=== PATIENT | male | born 1950 | race Caucasian/White ===

== ENCOUNTER → 2016-03-19 | Outpatient (CLI) | payer MEDICARE ==
--- NOTE | 2016-03-19 11:19 | US ---
EXAMINATION TYPE: US thyroid st tissue head/neck DATE OF EXAM: 03/19/2016 11:04 AM COMPARISON: NONE CLINICAL HISTORY: E04.1 THYROID NODULE. GLAND SIZE: Right Lobe: 3.2 x 1.3 x 1.3cm Overall Parenchyma: heterogeneous Left Lobe: 3.1 x 1.5 x 1.4cm Overall Parenchyma: heterogeneous Isthmus Thickness: 0.5cm NODULES RIGHT: # of nodules measured on right: 1 1. 0.7 x 0.5 x 0.5 cm hyperechoic solid nodule at the mid pole with well-defined margins. This nodu le is taller than wide and shows no intranodular vascularity. Prior size: [employer] here LEFT: # of nodules measured on left: 0 ISTHMUS: # of nodules measured in the isthmus:0 Bilateral neck scanned, no abnormal lymphadenopathy noted. IMPRESSION: Nonspecific nodularity. Thyroid lobe.
== END | disposition home or self-care (01) ==
LOC: RADUSWWP 10:51
PROVIDERS: ATTEND Surgery
DX: E04.1 Nontoxic single thyroid nodule (principal)
CPT/HCPCS: 76536

== ENCOUNTER 2016-03-26 06:44 | Day surgery (SDC) | payer MEDICARE ==
[2016-03-22 11:34] VITALS: BMI 37.2
[~2016-03-26 06:44] MED LIST: LACTATED RINGERS 1,000 ML IV ONE
[2016-03-26] MEDS ORDERED: LACTATED RINGERS 1,000 ML IV ONE (07:03)
[2016-03-26 07:11] VITALS: RESP 16; TEMP 97.3
[2016-03-26 07:17] LABS: Glucose,Whole Blood 110 mg/dL (75-99)
[2016-03-26] MEDS ORDERED: PROPOFOL 10 MG/ML 20 ML VIAL IV ONE (07:39)
[2016-03-26] MEDS ORDERED: LIDOCAINE 1% INJ 10MG/ML (20 ML MDV) ONE (07:39)
--- NOTE | 2016-03-26 07:54 | P.GSHP ---
History of Present Illness H&P Date: 03/26/16 Chief Complaint: Screening colonoscopy This is a 65-year-old male referred from Dr. Edgard Ambrosio. Patient rents today for screening colonoscopy. Patient states his last colonoscopy was approximately 13 years ago. He denies any significant GI complaints. - Constitutional Constitutional: Reports as per HPI Past Medical History Past Medical History: Coronary Artery Disease (CAD), Chest Pain / Angina, Diabetes Mellitus, GERD/Reflux, Hyperlipidemia, Hypertension, Musculoskeletal Disorder, Osteoarthritis (OA), Rheumatoid Arthritis (RA), Sleep Apnea/CPAP/BIPAP Additional Past Medical History / Comment(s): CHRONIC PAIN, RS3PE, DDD, cervical stenosis, upper extremity radiculopathy, stroke behind RT EYE, USES CPAP OCCAS. History of Any Multi-Drug Resistant Organisms: None Reported Past Surgical History: Ear Surgery, Heart Catheterization With Stent, Hernia Repair, Joint Replacement, Orthopedic Surgery Additional Past Surgical History / Comment(s): 01/10/15 anterior cervical decompression/fusion, 2004 CARDIAC STENT X1, RT KNEE REPLACEMENT, UVULectomy, RT EAR SURGERY, UMBILICAL HERNIA REPAIR, R eye injections for occular stroke tx , colonoscopy-normal Past Anesthesia/Blood Transfusion Reactions: No Reported Reaction Additional Past Anesthesia/Blood Transfusion Reaction / Comment(s): TAKES AWHILE TO WAKE UP. Date of Last Stent Placement:: 2004? Past Psychological History: Depression Additional Psychological History / Comment(s): Pt resides with his spouse. Recently he has had to use a walker to ambulate due to increased weakness. He drives. He is independent. Smoking Status: Former smoker Past Alcohol Use History: Occasional Additional Past Alcohol Use History / Comment(s): QUIT SMOKING 1977, SMOKED 10- 15 YRS. Past Drug Use History: None Reported - Past Family History Mother History Unknown: Yes Father History Unknown: Yes Additional Family Medical History / Comment(s): Pt has not spoken to his mother or father in 30 yrs. Medications and Allergies Home Medications Medication Instructions Recorded Confirmed Type Aspirin EC [Ecotrin Low Dose] 81 mg PO DAILY 12/28/14 03/26/16 History Isosorbide Mononitrate ER [Imdur] 60 mg PO QAM 12/28/14 03/26/16 History Metoprolol Tartrate 25 mg PO QAM 12/28/14 03/26/16 History Omeprazole [PriLOSEC] 20 mg PO AC-BRKFST 12/28/14 03/26/16 History Venlafaxine HCl ER [Effexor XR] 150 mg PO QAM 12/28/14 03/26/16 History Zolpidem Tartrate [Ambien] 10 mg PO HS PRN 12/28/14 03/26/16 History Diazepam [Valium] 10 mg PO DAILY PRN 01/04/16 03/26/16 History metFORMIN HCL [Glucophage] 500 mg PO BID-W/MEALS 01/04/16 03/26/16 History Atorvastatin [Lipitor] 80 mg PO DAILY 03/22/16 03/26/16 History Cholecalciferol [Vitamin D3] 1,000 unit PO DAILY 03/22/16 03/26/16 History Folic Acid 1 mg PO DAILY 03/22/16 03/26/16 History HYDROcodone/APAP 5-325MG [[place] 1 tab PO DAILY PRN 03/22/16 03/26/16 History 5-325] Methotrexate Sodium [Methotrexate] 10 mg PO MO 03/22/16 03/26/16 History Allergies Allergy/AdvReac Type Severity Reaction Status Date / Time hydrocodone bitartrate Allergy AGITATION,CAN Verified 03/26/16 07:06 [From Vicodin] TAKE NORCO AND TYLENOL Surgical - Exam Vital Signs Temp Pulse Resp BP Pulse Ox 97.3 F L 55 L 16 125/69 96 03/26/16 07:10 03/26/16 07:10 03/26/16 07:10 03/26/16 07:10 03/26/16 07:10 - General well developed, no distress - Eyes PERRL - ENT normal pinna - Neck no masses - Respiratory normal expansion - Cardiovascular Rhythm: regular - Abdomen Abdomen: soft, non tender Results - Labs Abnormal Lab Results - Last 24 Hours (Table) 03/26/16 Range/Units 07:12 POC Glucose (mg/dL) 110 H (75-99) mg/dL Assessment and Plan Plan: We'll perform screening colonoscopy.
--- NOTE | 2016-03-26 08:03 | P.OP ---
Date of Procedure: 03/26/16 Preoperative Diagnosis: Screening colonoscopy Postoperative Diagnosis: Normal colonoscopy Procedure(s) Performed: Colonoscopy Anesthesia: MAC Surgeon: Hank Martinez Pathology: none sent Condition: stable Disposition: PACU Description of Procedure: Patient's placed on the endoscopy table lateral position. He received IV sedation. Digital rectal exam was performed which revealed no abnormalities. The prostate was symmetric without nodules. The flexible colonoscope was then placed patient anus passed throughout the entire colon. The ileocecal valve was visualized. The cecum, ascending and transverse colon appeared normal. Scope was then brought back the descending and sigmoid colon this was normal. The rectum was normal. The scope was withdrawn for patient.
[2016-03-26 08:23] VITALS: BP 137/91; PULSE 52
== END 2016-03-26 08:49 | disposition home or self-care (01) ==
LOC: ORWHC2ENDO 06:44
PROVIDERS: ATTEND Surgery
DX: Z12.11 Encounter for screening for malignant neoplasm of colon (principal); I25.119 Atherosclerotic heart disease of native coronary artery with unspecified angina pectoris; I10 Essential (primary) hypertension; Z87.891 Personal history of nicotine dependence; E11.9 Type 2 diabetes mellitus without complications; Z79.84 Long term (current) use of oral hypoglycemic drugs; K21.9 Gastro-esophageal reflux disease without esophagitis; E78.5 Hyperlipidemia, unspecified; F32.9 Major depressive disorder, single episode, unspecified; M19.90 Unspecified osteoarthritis, unspecified site; M06.9 Rheumatoid arthritis, unspecified; G47.33 Obstructive sleep apnea (adult) (pediatric); Z95.5 Presence of coronary angioplasty implant and graft; Z79.82 Long term (current) use of aspirin; Z79.899 Other long term (current) drug therapy; Z88.5 Allergy status to narcotic agent
CPT/HCPCS: J2001; J2704; G0121; 45378; 99153

== ENCOUNTER → 2016-09-18 | Outpatient (CLI) | payer MEDICARE ==
--- NOTE | 2016-09-18 15:33 | US ---
EXAMINATION TYPE: US thyroid st tissue head/neck DATE OF EXAM: 09/18/2016 COMPARISON: US thyroid March 19, 2016 CLINICAL HISTORY: E04.1 THYROID NODULE. GLAND SIZE: Right Lobe: 4.6 x 1.9 x 1.7 cm Overall Parenchyma: heterogenous Left Lobe: 3.7 x 1.5 x 1.8 cm Overall Parenchyma: heterogeneous Isthmus Thickness: 0.3 cm NODULES RIGHT: # of nodules measured on right: 1 1. 0.6 X 0.6 x 0.6 cm echogenic solid nodule at the mid pole with poorly defined margins. This nod ule is wider than tall and shows no intranodular vascularity. Prior size: 0.7 x 0.5 x 0.5 cm LEFT: # of nodules measured on left: 0 ISTHMUS: # of nodules measured in the isthmus: 0 Bilateral neck scanned, no evidence of lymphadenopathy. Thyroid gland is overall small in size and heterogeneous in appearance with stable 6 mm small nodule right thyroid lobe. IMPRESSION: Overall stable findings, no new greater than 1 cm solid or cystic nodule is seen bilaterally.
== END | disposition home or self-care (01) ==
LOC: RADUSWWP 14:56
PROVIDERS: ATTEND Surgery
DX: E04.1 Nontoxic single thyroid nodule (principal)
CPT/HCPCS: 76536

== ENCOUNTER → 2017-09-19 | Outpatient (CLI) | payer MEDICARE, BC ==
--- NOTE | 2017-09-19 15:43 | US ---
EXAMINATION TYPE: US thyroid st tissue head/neck DATE OF EXAM: 09/19/2017 COMPARISON: 09/18/2016 thyroid ultrasound. CLINICAL HISTORY: Thyroid nodule E04.1. GLAND SIZE: Right Lobe: 3.8 X 2.4 X 2.5 cm Overall Parenchyma: homogenous Left Lobe: 4.6 X 2.7 x 1.4 cm Overall Parenchyma: homogeneous Isthmus Thickness: 0.4 cm NODULES RIGHT: # of nodules measured on right: Previous nodule not appreciated on today's exam LEFT: # of nodules measured on left: 1 ISTHMUS: # of nodules measured in the isthmus 0 1. 0.4 X 0.3 x 0.4 cm hypoechoic cystic nodule at the upper pole left thyroid with well-defined ma rgins; . This nodule is wider than tall and shows no intranodular vascularity. Prior size: no previous Bilateral neck scanned, no evidence of lymphadenopathy. Thyroid gland remains normal in size and fairly homogeneous in appearance with small 4 mm solid nodul e marked in left thyroid on current study IMPRESSION: Normal-sized thyroid without worrisome new greater than 1 cm solid or cystic nodule.
== END | disposition home or self-care (01) ==
LOC: RADUSWWP 14:51
PROVIDERS: ATTEND Surgery
DX: E04.1 Nontoxic single thyroid nodule (principal)
CPT/HCPCS: 76536

== ENCOUNTER 2018-07-10 06:06 | Emergency (ER) | payer MEDICARE, BC ==
[2018-07-10 06:21] VITALS: RESP 18
[2018-07-10] MEDS ORDERED: MORPHINE SULFATE 4 MG/ML SYRINGE IV STA (06:34)
[2018-07-10] MEDS ORDERED: ONDANSETRON 4 MG/2 ML VIAL IVP STA (06:34)
[2018-07-10] MEDS ORDERED: SODIUM CHLORIDE 0.9% 1,000 ML IV STA ×2 (06:34)
[2018-07-10 07:19] LABS: Appearance,Urine Cloudy (Clear); Bilirubin,Urine 1+ (Negative); Blood,Urine Moderate (Negative); Color,Urine Dark Brown; Glucose,Urine (UA) Negative (Negative); Ketones,Urine Trace (Negative); Leukocyte Esterase,Urine Negative (Negative); Mucus,Urine Moderate /hpf; Nitrite,Urine Negative (Negative); PH, Urine 5.5 (5.0-8.0); Protein,Urine 1+ (Negative); RBC,Urine >182 /hpf (0-5); Specific Gravity,Urine 1.032 (1.001-1.035); Urobilinogen,Urine <2.0 mg/dL (<2.0); WBC,Urine 42 /hpf (0-5)
--- NOTE | 2018-07-10 07:26 | ED ---
Abdominal Pain HPI <Reg Kwon - Last Filed: 07/10/18 08:55> - General Source: patient, EMS, RN notes reviewed, old records reviewed Mode of arrival: EMS Limitations: no limitations <Adenike Juan - Last Filed: 07/10/18 09:07> - General Chief Complaint: Abdominal Pain Stated Complaint: Abd pain Time Seen by Provider: 07/10/18 07:04 - History of Present Illness Initial Comments: Patient is a 67-year-old male presents emergency department today with onset of left flank pain last night. Patient arrived via EMS and given IM pain medication nausea medication. He has had a kidney stone 20 years ago. Patient has had no recent fevers or chills. Denies any significant abdominal pain. He states his pain is strictly of the left flank. Patient states his urine has been dark colored. Patient denies any recent fever, chills, shortness of breath, chest pain, back pain, abdominal pain, nausea vomiting, numbness or tingling, dysuria or hematuria, constipation or diarrhea, headaches or visual changes, or any other current symptoms (Adenike Juan) - Related Data Home Medications Medication Instructions Recorded Confirmed Aspirin EC [Ecotrin Low Dose] 81 mg PO DAILY 12/28/14 07/10/18 Isosorbide Mononitrate ER [Imdur] 60 mg PO QAM 12/28/14 07/10/18 Metoprolol Tartrate 25 mg PO QAM 12/28/14 07/10/18 Zolpidem Tartrate [Ambien] 10 mg PO HS PRN 12/28/14 07/10/18 metFORMIN HCL [Glucophage] 1,000 mg PO BID-W/MEALS 01/04/16 07/10/18 Atorvastatin [Lipitor] 80 mg PO DAILY 03/22/16 07/10/18 Hydroxychloroquine Sulfate 200 mg PO BID 07/10/18 07/10/18 [Plaquenil] Venlafaxine HCl ER [Effexor XR] 75 mg PO DAILY 07/10/18 07/10/18 sulfaSALAzine [Azulfidine] 1,500 mg PO BID 07/10/18 07/10/18 Previous Rx's Medication Instructions Recorded Ciprofloxacin HCl [Cipro] 500 mg PO BID 3 Days #6 tab 07/10/18 HYDROcodone/APAP 5-325MG [[place] 1 tab PO Q6HR PRN #10 tab 07/10/18 5-325] Ondansetron Odt [Zofran Odt] 4 mg PO Q8HR PRN #12 tab 07/10/18 Tamsulosin [Flomax] 0.4 mg PO DAILY #7 cap 07/10/18 Allergies Allergy/AdvReac Type Severity Reaction Status Date / Time hydrocodone bitartrate AdvReac AGITATION,CAN Verified 07/10/18 07:31 [From Vicodin] TAKE NORCO AND TYLENOL Review of Systems ROS Other: All systems not noted in ROS Statement are negative. <Reg Kwon - Last Filed: 07/10/18 08:55> ROS Other: All systems not noted in ROS Statement are negative. <Adenike Juan - Last Filed: 07/10/18 09:07> ROS Statement: Those systems with pertinent positive or pertinent negative responses have been documented in the HPI. Past Medical History Past Medical History: Coronary Artery Disease (CAD), Chest Pain / Angina, Diabetes Mellitus, GERD/Reflux, Hyperlipidemia, Hypertension, Musculoskeletal Disorder, Osteoarthritis (OA), Rheumatoid Arthritis (RA), Sleep Apnea/CPAP/BIPAP Additional Past Medical History / Comment(s): CHRONIC PAIN, RS3PE, DDD, cervical stenosis, upper extremity radiculopathy, stroke behind RT EYE, USES CPAP OCCAS. History of Any Multi-Drug Resistant Organisms: None Reported Past Surgical History: Ear Surgery, Heart Catheterization With Stent, Hernia Repair, Joint Replacement, Orthopedic Surgery Additional Past Surgical History / Comment(s): 01/10/15 anterior cervical decompression/fusion, 2004 CARDIAC STENT X1, RT KNEE REPLACEMENT, UVULectomy, RT EAR SURGERY, UMBILICAL HERNIA REPAIR, R eye injections for occular stroke tx, colonoscopy-normal Past Anesthesia/Blood Transfusion Reactions: No Reported Reaction Additional Past Anesthesia/Blood Transfusion Reaction / Comment(s): TAKES AWHILE TO WAKE UP. Date of Last Stent Placement:: 2004? Past Psychological History: Depression Smoking Status: Former smoker Past Alcohol Use History: Occasional Past Drug Use History: None Reported - Past Family History Mother History Unknown: Yes Father History Unknown: Yes Additional Family Medical History / Comment(s): Pt has not spoken to his mother or father in 30 yrs. <Adenike Juan - Last Filed: 07/10/18 09:07> General Exam Limitations: no limitations General appearance: alert, in no apparent distress Head exam: Present: atraumatic, normocephalic, normal inspection Eye exam: Present: normal appearance, PERRL, EOMI. Absent: scleral icterus, conjunctival injection, periorbital swelling ENT exam: Present: normal exam, mucous membranes moist Neck exam: Present: normal inspection. Absent: tenderness, meningismus, lymphadenopathy Respiratory exam: Present: normal lung sounds bilaterally. Absent: respiratory distress, wheezes, rales, rhonchi, stridor Cardiovascular Exam: Present: regular rate, normal rhythm, normal heart sounds. Absent: systolic murmur, diastolic murmur, rubs, gallop, clicks GI/Abdominal exam: Present: soft, tenderness (Left CVA tenderness), normal bowel sounds. Absent: distended, guarding, rebound, rigid Extremities exam: Present: normal inspection, full ROM, normal capillary refill. Absent: tenderness, pedal edema, joint swelling, calf tenderness Back exam: Present: normal inspection Neurological exam: Present: alert, oriented X3, CN II-XII intact Psychiatric exam: Present: normal affect, normal mood Skin exam: Present: warm, dry, intact, normal color. Absent: rash <Adenike Juan - Last Filed: 07/10/18 09:07> - General Exam Comments Initial Comments: Patient is a 67-year-old male. Alert and oriented 3. Patient appears in no acute distress. Resting comfortably in bed at this time. (Adenike Juan) Course <Reg Kwon - Last Filed: 07/10/18 08:55> Vital Signs 07/10/18 06:18 Temperature 97.6 F Pulse Rate 58 L Respiratory 18 Rate Blood Pressure 146/100 O2 Sat by Pulse 96 Oximetry - Reevaluation(s) Reevaluation #1: 07/10/18 08:55 PA supervision: I personally evaluate this case and do agree with the assessment and plan. He does demonstrate evidence of a kidney stone with white cells in the urine he will be placed on appropriate medication. (Reg Kwon) Medical Decision Making - Lab Data Result diagrams: 07/10/18 07:25 07/10/18 07:25 <Reg Kwon - Last Filed: 07/10/18 08:55> - Lab Data Result diagrams: 07/10/18 07:25 07/10/18 07:25 - Radiology Data Radiology results: report reviewed <Adenike Juan - Last Filed: 07/10/18 09:07> - Medical Decision Making is a 67-year-old male presents emergency lots of left flank pain. Patient has evidence of hematuria, with white blood cells noted in urine. Urine culture be completed. Patient was started on IV fluids, given pain medication and reevaluation instantly bed. Computed tomography scan without contrast shows evidence of a 3 mm left ureter stone. Patient will be started on Rocephin for a possible urinary tract infection with the stone. Will discharge Patient with Cipro, Flomax, and pain medicine. All questions answered return parameters were discussed. (Adenike Juan) - Lab Data Lab Results 07/10/18 07/10/18 07/10/18 Range/Units 06:55 07:25 07:25 WBC 6.1 (3.8-10.6) k/uL RBC 3.92 L (4.30-5.90) m/uL Hgb 12.0 L (13.0-17.5) gm/dL Hct 37.6 L (39.0-53.0) % MCV 96.0 (80.0-100.0) fL MCH 30.6 (25.0-35.0) pg MCHC 31.9 (31.0-37.0) g/dL RDW 15.1 (11.5-15.5) % Plt Count 201 (150-450) k/uL Neutrophils % 86 % Lymphocytes % 9 % Monocytes % 3 % Eosinophils % 1 % Basophils % 0 % Neutrophils # 5.2 (1.3-7.7) k/uL Lymphocytes # 0.6 L (1.0-4.8) k/uL Monocytes # 0.2 (0-1.0) k/uL Eosinophils # 0.1 (0-0.7) k/uL Basophils # 0.0 (0-0.2) k/uL Hypochromasia Slight Sodium 142 (137-145) mmol/L Potassium 4.3 (3.5-5.1) mmol/L Chloride 106 (98-107) mmol/L Carbon Dioxide 27 (22-30) mmol/L Anion Gap 9 mmol/L BUN 18 (9-20) mg/dL Creatinine 0.96 (0.66-1.25) mg/dL Est GFR (CKD-EPI)AfAm >90 (>60 ml/min/1.73 sqM) Est GFR (CKD-EPI)NonAf 83 (>60 ml/min/1.73 sqM) Glucose 131 H (74-99) mg/dL Calcium 9.4 (8.4-10.2) mg/dL Total Bilirubin 0.4 (0.2-1.3) mg/dL AST 31 (17-59) U/L ALT 44 (21-72) U/L Alkaline Phosphatase 74 (38-126) U/L Total Protein 6.6 (6.3-8.2) g/dL Albumin 4.4 (3.5-5.0) g/dL Amylase 59 (30-110) U/L Lipase 107 (23-300) U/L Urine Color Dark Brown Urine Appearance Cloudy (Clear) Urine pH 5.5 (5.0-8.0) Ur Specific [place] 1.032 (1.001-1.035) Urine Protein 1+ H (Negative) Urine Glucose (UA) Negative (Negative) Urine Ketones Trace H (Negative) Urine Blood Moderate H (Negative) Urine Nitrite Negative (Negative) Urine Bilirubin 1+ H (Negative) Urine Urobilinogen <2.0 (<2.0) mg/dL Ur Leukocyte Esterase Negative (Negative) Urine RBC >182 H (0-5) /hpf Urine WBC 42 H (0-5) /hpf Urine Mucus Moderate H (None) /hpf - Radiology Data : Temperature change in the mid left ureter with a mild prominence present without hydroureter no 0.3 cm mid left hemipelvis ureteral stone. No hyd ronephrosis is present. Bilateral cysts. (Adenike Juan) Disposition <Reg Kwon - Last Filed: 07/10/18 08:55> Is patient prescribed a controlled substance at d/c from ED?: Yes If prescribed controlled substance>3 days was MAPS reviewed?: Prescribed <3 Days Time of Disposition: 09:04 <Adenike Juan - Last Filed: 07/10/18 09:07> Clinical Impression: UTI (urinary tract infection), Ureteral stone Disposition: HOME SELF-CARE Condition: Good Instructions (If sedation given, give patient instructions): Ureteral Stones (ED) Additional Instructions: Patient is to rest, remain hydrated. Take antibiotics and medications as prescribed. Follow-up with urology. Return to the emergency department if any alarming signs or symptoms occur. Prescriptions: Ciprofloxacin HCl [Cipro] 500 mg PO BID 3 Days #6 tab Tamsulosin [Flomax] 0.4 mg PO DAILY #7 cap HYDROcodone/APAP 5-325MG [[place] 5-325] 1 tab PO Q6HR PRN #10 tab PRN Reason: Pain Ondansetron Odt [Zofran Odt] 4 mg PO Q8HR PRN #12 tab PRN Reason: Nausea Referrals: Edgard Dixon DO [Primary Care Provider] - 1-2 days Orestes Stern MD [STAFF PHYSICIAN] - 1-2 days
[2018-07-10 07:49] LABS: Basophils % (A) 0 %; Eosinophils # (A) 0.1 k/uL (0-0.7); Eosinophils % (A) 1 %; HCT 37.6 % (39.0-53.0); Hypochromasia Slight; Lymphocytes # (A) 0.6 k/uL (1.0-4.8); Lymphocytes % (A) 9 %; MCH 30.6 pg (25.0-35.0); MCHC 31.9 g/dL (31.0-37.0); Mean Platelet Volume 7.1; Monocytes # (A) 0.2 k/uL (0-1.0); Monocytes % (A) 3 %; Neutrophils # (A) 5.2 k/uL (1.3-7.7); Neutrophils % (A) 86 %; Platelet Count 201 k/uL (150-450); RBC 3.92 m/uL (4.30-5.90); RDW 15.1 % (11.5-15.5); WBC 6.1 k/uL (3.8-10.6)
--- NOTE | 2018-07-10 07:49 | CT ---
EXAMINATION TYPE: CT abdomen pelvis wo con DATE OF EXAM: 07/10/2018 COMPARISON: None INDICATION: Abdominal pain; history of renal stones DLP: 1340.4 mGycm, Automated exposure control for dose reduction was used. CONTRAST: None Study performed without Oral Contrast TECHNIQUE: Axial images were obtained from above the diaphragm to the pubic rami in the axial plane a t 5 mm thick sections. Reconstructed images are reviewed on the computer in the coronal plane. FINDINGS: Limited CT sections are obtained the lung bases. The lung bases are clear. Coronary artery calcific ations present. CT ABDOMEN: Liver: Normal Spleen: Normal Pancreas: There is some fatty infiltration liver. Adrenal glands: The adrenal glands are normal. Gallbladder: Normal Kidneys: No masses are evident. No hydronephrosis is present. There is a cyst on the posterior mid left kidney measuring 5.6 cm and 12 Hounsfield units. Cyst on the inferior anterior right kidney damon uring 7.1 cm and 3 Hounsfield units. There is a nonobstructing renal stone at the inferior pole right kidney measuring 0.6 cm. No hydroureter is evident. There is a 0.3 cm calcification which may reside within the mid left hemipelvis. There is some mild i nflammatory change adjacent to the left ureter suggesting this may be a distal ureteral stone. Some m ild mid ureteral prominence may be present. Aorta: Vascular calcification is within the aorta. There is fusiform prominence of the abdominal aor ta with an AP diameter of 3.4 cm. This extends to the aortic bifurcation. Inferior vena cava: Normal. CT PELVIS: Loops of bowel within the abdomen and pelvis are normal. Study is performed without oral contrast limiting bowel evaluation. Appendix: Normal as visualized. Urinary bladder: Decompressed with limited evaluation Genitourinary structures: Prostate is normal Osseous structures: No suspicious lytic or sclerotic lesions. IMPRESSIONS: 1. Periureteral inflammatory changes of the mid left ureter. Some mild prominence is present without hydroureter to a 0.3 cm mid left hemipelvis ureteral stone. No hydronephrosis is present. 2. Bilateral cysts.
[2018-07-10 07:52] LABS: ALT 44 U/L (21-72); AST 31 U/L (17-59); Albumin 4.4 g/dL (3.5-5.0); Alkaline Phosphatase 74 U/L (38-126); Amylase 59 U/L (30-110); Anion Gap 9 mmol/L; Blood Urea Nitrogen 18 mg/dL (9-20); Calcium 9.4 mg/dL (8.4-10.2); Carbon Dioxide 27 mmol/L (22-30); Chloride 106 mmol/L (98-107); Glucose 131 mg/dL (74-99); Lipase 107 U/L (23-300); Potassium 4.3 mmol/L (3.5-5.1); Sodium 142 mmol/L (137-145); Total Bilirubin 0.4 mg/dL (0.2-1.3); Total Protein 6.6 g/dL (6.3-8.2)
[2018-07-10 10:12] VITALS: BP 137/83; PULSE 60; TEMP 97.8
== END 2018-07-10 10:27 | disposition home or self-care (01) ==
LOC: EC 06:06
DX: N20.1 Calculus of ureter (principal); N39.0 Urinary tract infection, site not specified; N28.1 Cyst of kidney, acquired; I25.119 Atherosclerotic heart disease of native coronary artery with unspecified angina pectoris; E11.9 Type 2 diabetes mellitus without complications; E78.5 Hyperlipidemia, unspecified; I10 Essential (primary) hypertension; M19.90 Unspecified osteoarthritis, unspecified site; M06.9 Rheumatoid arthritis, unspecified; G47.30 Sleep apnea, unspecified; F32.9 Major depressive disorder, single episode, unspecified; Z87.891 Personal history of nicotine dependence; Z88.5 Allergy status to narcotic agent; Z88.6 Allergy status to analgesic agent; Z79.82 Long term (current) use of aspirin; Z79.84 Long term (current) use of oral hypoglycemic drugs; Z79.899 Other long term (current) drug therapy; Z86.73 Personal history of transient ischemic attack (TIA), and cerebral infarction without residual deficits; Z87.442 Personal history of urinary calculi; Z95.5 Presence of coronary angioplasty implant and graft; Z96.651 Presence of right artificial knee joint; Z98.1 Arthrodesis status; Z99.89 Dependence on other enabling machines and devices
CPT/HCPCS: 99285; 96374; 96375; 96361 ×3; 36415; 80053; 82150; 83690; 85025; 81001; 87086; 74176; J2270; J2405; J0696

== ENCOUNTER → 2018-09-22 | Outpatient (CLI) | payer MEDICARE, BC ==
--- NOTE | 2018-09-22 12:42 | US ---
EXAMINATION TYPE: US thyroid st tissue head/neck DATE OF EXAM: 09/22/2018 COMPARISON: US 2019 CLINICAL HISTORY: E04.1 Thyroid nodule. thyroid nodules GLAND SIZE: Right Lobe: 5.0 x 2.6 x 2.0 cm Overall Parenchyma: heterogenous Left Lobe: 4.4 x 1.7 x 1.4 cm Overall Parenchyma: heterogeneous Isthmus Thickness: 0.3 cm NODULES RIGHT: # of nodules measured on right: 1 1. 0.7 X 0.8 x 0.7 cm hyperechoic solid nodule at the mid pole with well-defined margins. This nodu le is wider than tall and shows no intranodular vascularity. Prior size: 0.6 x 0.6 x 0.6 cm LEFT: # of nodules measured on left: 1 1. 0.4 X 0.4 x 0.4 cm hypoechoic mixed nodule at the upper pole with well-defined margins. This nod ule is wider than tall and shows no intranodular vascularity. Prior size: 0.4 x 0.3 x 0.4 cm ISTHMUS: # of nodules measured in the isthmus: 0 Bilateral neck scanned, no evidence of lymphadenopathy. IMPRESSION: Thyroid nodularity as noted above.
== END | disposition home or self-care (01) ==
LOC: RADUSWWP 12:11
PROVIDERS: ATTEND Surgery
DX: E04.2 Nontoxic multinodular goiter (principal)
CPT/HCPCS: 76536

== ENCOUNTER → 2018-10-16 | Outpatient (CLI) | payer MEDICARE, BC | END | disposition home or self-care (01) | LOC: LABWHC1 15:15 | PROVIDERS: ATTEND Urology | DX: C61 Malignant neoplasm of prostate (principal) | CPT/HCPCS: 36415; 84153; 84403 ==

== ENCOUNTER 2018-11-18 17:43 | Emergency (ER) | payer MEDICARE, BC ==
[2018-11-18 17:51] VITALS: PULSE 50; TEMP 97.3
[2018-11-18] MEDS ORDERED: SODIUM CHLORIDE 0.9% 1,000 ML IV STA ×2 (17:58)
[2018-11-18] MEDS ORDERED: KETOROLAC 30 MG/ML 1 ML VIAL IVP STA (17:58)
--- NOTE | 2018-11-18 18:09 | ED ---
Abdominal Pain HPI - General Chief Complaint: Abdominal Pain Stated Complaint: abdominal pain Time Seen by Provider: 11/18/18 17:43 Source: patient, EMS, RN notes reviewed Mode of arrival: EMS Limitations: no limitations - History of Present Illness Initial Comments: This is a 62-year-old male with a history kidney stones in the past who states he had the onset around 4 to 4:30 PM today of severe right-sided flank and abdominal pain he states is sharp 9-10/10 severity the pain radiation or else. He has a some nausea some sweats with it. He was brought in by EMS was given IV pain medication without much relief. He states is much worse than his previous kidney stones. His only other abdominal area that of a hernia repair he still has his appendix and gallbladder. No diarrhea reported no constipation. Production no chest pain or shortness of breath. He does state his pain radiates toward his back. MD Complaint: abdominal pain, flank pain Location: RUQ, RLQ - Related Data Home Medications Medication Instructions Recorded Confirmed Aspirin EC [Ecotrin Low Dose] 81 mg PO DAILY 12/28/14 11/18/18 Metoprolol Tartrate 25 mg PO QAM 12/28/14 11/18/18 Zolpidem Tartrate [Ambien] 10 mg PO HS PRN 12/28/14 11/18/18 metFORMIN HCL [Glucophage] 1,000 mg PO BID-W/MEALS 01/04/16 11/18/18 Atorvastatin [Lipitor] 80 mg PO DAILY 03/22/16 11/18/18 Hydroxychloroquine Sulfate 200 mg PO BID 07/10/18 11/18/18 [Plaquenil] Venlafaxine HCl ER [Effexor XR] 75 mg PO DAILY 07/10/18 11/18/18 sulfaSALAzine [Azulfidine] 1,500 mg PO BID 07/10/18 11/18/18 Diazepam 10 mg PO HS PRN 11/18/18 11/18/18 Omeprazole 20 mg PO DAILY 11/18/18 11/18/18 Previous Rx's Medication Instructions Recorded Tamsulosin [Flomax] 0.4 mg PO DAILY #7 cap 11/18/18 Allergies Allergy/AdvReac Type Severity Reaction Status Date / Time hydrocodone bitartrate AdvReac AGITATION,CAN Verified 11/18/18 18:58 [From Vicodin] TAKE NORCO AND TYLENOL Review of Systems ROS Statement: Those systems with pertinent positive or pertinent negative responses have been documented in the HPI. ROS Other: All systems not noted in ROS Statement are negative. Past Medical History Past Medical History: Coronary Artery Disease (CAD), Chest Pain / Angina, Diabetes Mellitus, GERD/Reflux, Hyperlipidemia, Hypertension, Musculoskeletal Disorder, Osteoarthritis (OA), Rheumatoid Arthritis (RA), Sleep Apnea/CPAP/BIPAP Additional Past Medical History / Comment(s): CHRONIC PAIN, RS3PE, DDD, cervical stenosis, upper extremity radiculopathy, stroke behind RT EYE, USES CPAP OCCAS. History of Any Multi-Drug Resistant Organisms: None Reported Past Surgical History: Ear Surgery, Heart Catheterization With Stent, Hernia Repair, Joint Replacement, Orthopedic Surgery Additional Past Surgical History / Comment(s): 01/10/15 anterior cervical decompression/fusion, 2004 CARDIAC STENT X1, RT KNEE REPLACEMENT, UVULectomy, RT EAR SURGERY, UMBILICAL HERNIA REPAIR, R eye injections for occular stroke tx, colonoscopy-normal Past Anesthesia/Blood Transfusion Reactions: No Reported Reaction Additional Past Anesthesia/Blood Transfusion Reaction / Comment(s): TAKES AWHILE TO WAKE UP. Date of Last Stent Placement:: 2004? Past Psychological History: Depression Smoking Status: Former smoker Past Alcohol Use History: Occasional Past Drug Use History: None Reported - Past Family History Mother History Unknown: Yes Father History Unknown: Yes Additional Family Medical History / Comment(s): Pt has not spoken to his mother or father in 30 yrs. General Exam - General Exam Comments Initial Comments: This is a well-developed well-nourished awake alert oriented 3 male Limitations: no limitations General appearance: alert, anxious, in distress Head exam: Present: atraumatic, normocephalic, normal inspection Eye exam: Present: normal appearance, PERRL, EOMI. Absent: scleral icterus, conjunctival injection, periorbital swelling ENT exam: Present: normal exam, mucous membranes moist Neck exam: Present: normal inspection, full ROM, other (No stridor JVD or bruits). Absent: tenderness, meningismus, lymphadenopathy Respiratory exam: Present: normal lung sounds bilaterally. Absent: respiratory distress, wheezes, rales, rhonchi, stridor Cardiovascular Exam: Present: normal rhythm, bradycardia, normal heart sounds. Absent: systolic murmur, diastolic murmur, rubs, gallop, clicks GI/Abdominal exam: Present: soft, tenderness (Right side pain to palpation right lower quadrant right flank.), normal bowel sounds. Absent: distended, guarding, rebound, rigid Rectal exam: Present: deferred Extremities exam: Present: normal inspection, full ROM, normal capillary refill. Absent: tenderness, pedal edema, joint swelling, calf tenderness Back exam: Present: normal inspection, full ROM. Absent: tenderness Neurological exam: Present: alert, oriented X3, CN II-XII intact Psychiatric exam: Present: normal affect, anxious Skin exam: Present: warm, intact, normal color, diaphoretic. Absent: rash Course Vital Signs 11/18/18 11/18/18 11/18/18 17:45 18:51 19:37 Temperature 97.3 F L Pulse Rate 50 L 50 L Respiratory 20 18 Rate Blood Pressure 149/81 139/70 O2 Sat by Pulse 99 98 100 Oximetry Medical Decision Making - Medical Decision Making Patient is pain-free after several patient medication the presentation is consistent with a ureterolithiasis and renal colic. He does want to go home I did discuss findings the patient family. Patient will be discharged he will keep his follow-up with his other doctor. He does have pain medication at home he will be given a starter pack today. - Lab Data Result diagrams: 11/18/18 18:40 11/18/18 18:40 Lab Results 11/18/18 11/18/18 11/18/18 Range/Units 18:40 18:40 18:40 WBC 6.6 (3.8-10.6) k/uL RBC 3.98 L (4.30-5.90) m/uL Hgb 12.6 L (13.0-17.5) gm/dL Hct 39.7 (39.0-53.0) % MCV 99.9 (80.0-100.0) fL MCH 31.7 (25.0-35.0) pg MCHC 31.7 (31.0-37.0) g/dL RDW 14.7 (11.5-15.5) % Plt Count 207 (150-450) k/uL Neutrophils % 85 % Lymphocytes % 9 % Monocytes % 3 % Eosinophils % 1 % Basophils % 0 % Neutrophils # 5.6 (1.3-7.7) k/uL Lymphocytes # 0.6 L (1.0-4.8) k/uL Monocytes # 0.2 (0-1.0) k/uL Eosinophils # 0.1 (0-0.7) k/uL Basophils # 0.0 (0-0.2) k/uL Macrocytosis Slight Sodium 140 (137-145) mmol/L Potassium 5.0 (3.5-5.1) mmol/L Chloride 105 (98-107) mmol/L Carbon Dioxide 26 (22-30) mmol/L Anion Gap 9 mmol/L BUN 16 (9-20) mg/dL Creatinine 0.97 (0.66-1.25) mg/dL Est GFR (CKD-EPI)AfAm >90 (>60 ml/min/1.73 sqM) Est GFR (CKD-EPI)NonAf 82 (>60 ml/min/1.73 sqM) Glucose 137 H (74-99) mg/dL Plasma Lactic Acid Howie 2.4 H* (0.7-2.0) mmol/L Calcium 9.5 (8.4-10.2) mg/dL Magnesium 1.5 L (1.6-2.3) mg/dL Total Bilirubin 0.6 (0.2-1.3) mg/dL AST 37 (17-59) U/L ALT 43 (21-72) U/L Alkaline Phosphatase 97 (38-126) U/L Creatine Kinase 202 H (55-170) U/L Total Protein 6.6 (6.3-8.2) g/dL Albumin 4.3 (3.5-5.0) g/dL Amylase 42 (30-110) U/L Lipase 97 (23-300) U/L Urine Color Urine Appearance (Clear) Urine pH (5.0-8.0) Ur Specific Orange (1.001-1.035) Urine Protein (Negative) Urine Glucose (UA) (Negative) Urine Ketones (Negative) Urine Blood (Negative) Urine Nitrite (Negative) Urine Bilirubin (Negative) Urine Urobilinogen (<2.0) mg/dL Ur Leukocyte Esterase (Negative) Urine RBC (0-5) /hpf Urine Mucus (None) /hpf 11/18/18 Range/Units 19:07 WBC (3.8-10.6) k/uL RBC (4.30-5.90) m/uL Hgb (13.0-17.5) gm/dL Hct (39.0-53.0) % MCV (80.0-100.0) fL MCH (25.0-35.0) pg MCHC (31.0-37.0) g/dL RDW (11.5-15.5) % Plt Count (150-450) k/uL Neutrophils % % Lymphocytes % % Monocytes % % Eosinophils % % Basophils % % Neutrophils # (1.3-7.7) k/uL Lymphocytes # (1.0-4.8) k/uL Monocytes # (0-1.0) k/uL Eosinophils # (0-0.7) k/uL Basophils # (0-0.2) k/uL Macrocytosis Sodium (137-145) mmol/L Potassium (3.5-5.1) mmol/L Chloride (98-107) mmol/L Carbon Dioxide (22-30) mmol/L Anion Gap mmol/L BUN (9-20) mg/dL Creatinine (0.66-1.25) mg/dL Est GFR (CKD-EPI)AfAm (>60 ml/min/1.73 sqM) Est GFR (CKD-EPI)NonAf (>60 ml/min/1.73 sqM) Glucose (74-99) mg/dL Plasma Lactic Acid Howie (0.7-2.0) mmol/L Calcium (8.4-10.2) mg/dL Magnesium (1.6-2.3) mg/dL Total Bilirubin (0.2-1.3) mg/dL AST (17-59) U/L ALT (21-72) U/L Alkaline Phosphatase (38-126) U/L Creatine Kinase (55-170) U/L Total Protein (6.3-8.2) g/dL Albumin (3.5-5.0) g/dL Amylase (30-110) U/L Lipase (23-300) U/L Urine Color Dark Brown Urine Appearance Clear (Clear) Urine pH 6.5 (5.0-8.0) Ur Specific Orange 1.028 (1.001-1.035) Urine Protein 1+ H (Negative) Urine Glucose (UA) Negative (Negative) Urine Ketones Trace H (Negative) Urine Blood Moderate H (Negative) Urine Nitrite Negative (Negative) Urine Bilirubin 1+ H (Negative) Urine Urobilinogen 3.0 (<2.0) mg/dL Ur Leukocyte Esterase Negative (Negative) Urine RBC >182 H (0-5) /hpf Urine Mucus Occasional H (None) /hpf Disposition Clinical Impression: Kidney stone on right side, Renal colic on right side, Hematuria Disposition: HOME SELF-CARE Condition: Good Instructions (If sedation given, give patient instructions): Kidney Stones (ED), Renal Colic (ED), How to Strain Your Urine (ED) Additional Instructions: Use the pain medication I you have at home, your Flomax prescription has been [facility] here [facility] Prescriptions: Tamsulosin [Flomax] 0.4 mg PO DAILY #7 cap Is patient prescribed a controlled substance at d/c from ED?: No Referrals: Edgard Dixon DO [Primary Care Provider] - 1-2 days
[2018-11-18 18:52] LABS: Basophils % (A) 0 %; Eosinophils # (A) 0.1 k/uL (0-0.7); Eosinophils % (A) 1 %; HCT 39.7 % (39.0-53.0); HGB 12.6 gm/dL (13.0-17.5); Lymphocytes # (A) 0.6 k/uL (1.0-4.8); Lymphocytes % (A) 9 %; MCH 31.7 pg (25.0-35.0); MCHC 31.7 g/dL (31.0-37.0); MCV 99.9 fL (80.0-100.0); Macrocytosis Slight; Mean Platelet Volume 6.8; Monocytes # (A) 0.2 k/uL (0-1.0); Monocytes % (A) 3 %; Neutrophils # (A) 5.6 k/uL (1.3-7.7); Neutrophils % (A) 85 %; Platelet Count 207 k/uL (150-450); RBC 3.98 m/uL (4.30-5.90); RDW 14.7 % (11.5-15.5); WBC 6.6 k/uL (3.8-10.6)
[2018-11-18 19:01] LABS: ALT 43 U/L (21-72); AST 37 U/L (17-59); African American GFR (CKD) >90 (>60 ml/min/1.73 sqM); Albumin 4.3 g/dL (3.5-5.0); Alkaline Phosphatase 97 U/L (38-126); Amylase 42 U/L (30-110); Anion Gap 9 mmol/L; Blood Urea Nitrogen 16 mg/dL (9-20); Calcium 9.5 mg/dL (8.4-10.2); Carbon Dioxide 26 mmol/L (22-30); Chloride 105 mmol/L (98-107); Creatine Kinase 202 U/L (55-170); Glucose 137 mg/dL (74-99); Magnesium 1.5 mg/dL (1.6-2.3); Sodium 140 mmol/L (137-145); Total Bilirubin 0.6 mg/dL (0.2-1.3); Total Protein 6.6 g/dL (6.3-8.2)
[2018-11-18] MEDS ORDERED: SODIUM CHLORIDE 0.9% 1,000 ML IV ONE (19:20)
[2018-11-18 19:21] LABS: Appearance,Urine Clear (Clear); Bilirubin,Urine 1+ (Negative); Blood,Urine Moderate (Negative); Color,Urine Dark Brown; Glucose,Urine (UA) Negative (Negative); Ketones,Urine Trace (Negative); Leukocyte Esterase,Urine Negative (Negative); Mucus,Urine Occasional /hpf; Nitrite,Urine Negative (Negative); PH, Urine 6.5 (5.0-8.0); Protein,Urine 1+ (Negative); RBC,Urine >182 /hpf (0-5); Specific Gravity,Urine 1.028 (1.001-1.035)
[2018-11-18 19:38] VITALS: RESP 18
--- NOTE | 2018-11-18 19:38 | CT ---
EXAMINATION TYPE: CT abdomen pelvis wo con DATE OF EXAM: 11/18/2018 COMPARISON: 07/10/2018 HISTORY: Right sided pain CT DLP: 1440 mGycm Automated exposure control for dose reduction was used. TECHNIQUE: Helical acquisition of images was performed from the lung bases through the pelvis. FINDINGS: There is mild atelectasis at the posterior lung bases. There is no pericardial effusion. There is no pleural effusion. Stomach is intact. Liver shows no focal defect. Gallbladder appears normal. There i s no evidence of pancreatic mass. Spleen is intact. There is no adrenal mass. There is 5 cm cortical cyst posterior left kidney. There is lobulated large cyst anterior right kidne y that measures 8 cm. There is mild right-sided hydronephrosis and hydroureter. There is 6 mm calculu s in the distal right ureter near the ureterovesical junction. Bladder distends smoothly. Left ureter is not dilated. There is no retroperitoneal adenopathy. Abdominal aorta is atheromatous. Abdominal a [place] measures up to 3.2 cm. There is no inguinal hernia. There is no mesenteric edema. There is no ascites or free air. There is no sign of a bowel obstruction. There are some hypertrophic degenerative changes in the lumbar spine. There is no compression fracture. Bony pelvis is intact. Appendix is normal. IMPRESSION: OBSTRUCTING CALCULUS DISTAL RIGHT URETER WITH RIGHT-SIDED HYDRONEPHROSIS AND HYDROURETER. OBSTRUCTION IS NEW COMPARED TO OLD EXAM. THERE IS MILD ANEURYSM OF THE ABDOMINAL AORTA UNCHANGED.
[2018-11-18] MEDS ORDERED: fentaNYL (PF) 50 MCG/ML 2 ML AMP IV STA (20:12)
[2018-11-18] MEDS ORDERED: TAMSULOSIN 0.4 MG CAP.ER.24H PO STA (20:13)
[2018-11-18] MEDS ORDERED: IBUPROFEN 400 MG TAB PO STA (22:01)
[2018-11-18 22:17] VITALS: BP 141/70
== END 2018-11-18 22:34 | disposition home or self-care (01) ==
LOC: EC 17:43
DX: N20.2 Calculus of kidney with calculus of ureter (principal); I25.119 Atherosclerotic heart disease of native coronary artery with unspecified angina pectoris; E11.9 Type 2 diabetes mellitus without complications; K21.9 Gastro-esophageal reflux disease without esophagitis; E78.5 Hyperlipidemia, unspecified; I10 Essential (primary) hypertension; M19.90 Unspecified osteoarthritis, unspecified site; G47.30 Sleep apnea, unspecified; G89.29 Other chronic pain; M06.9 Rheumatoid arthritis, unspecified; F32.9 Major depressive disorder, single episode, unspecified; Z79.82 Long term (current) use of aspirin; Z79.84 Long term (current) use of oral hypoglycemic drugs; Z79.899 Other long term (current) drug therapy; Z87.891 Personal history of nicotine dependence; Z88.5 Allergy status to narcotic agent; Z95.5 Presence of coronary angioplasty implant and graft; Z88.6 Allergy status to analgesic agent; Z99.89 Dependence on other enabling machines and devices; Z96.651 Presence of right artificial knee joint; Z98.890 Other specified postprocedural states
CPT/HCPCS: 36415; 80053; 82150; 82550; 83605; 83690; 83735; 85025; 81001; 74176; 99285; 96374; 96375; 96361 ×4; J3010; J1885

== ENCOUNTER 2018-11-22 06:36 | Emergency (ER) | payer MEDICARE, BC ==
[2018-11-22] MEDS ORDERED: ONDANSETRON 4 MG/2 ML VIAL IVP STA (06:47)
[2018-11-22] MEDS ORDERED: PANTOPRAZOLE 40 MG/10 ML VIAL IVP STA (06:47)
[2018-11-22] MEDS ORDERED: SODIUM CHLORIDE 0.9% 1,000 ML IV STA (06:47)
[2018-11-22] MEDS ORDERED: SODIUM CHLORIDE 0.9% 2,000 ML IV STA (06:47)
[2018-11-22] MEDS ORDERED: KETOROLAC 30 MG/ML 1 ML VIAL IVP STA (06:47)
[2018-11-22] MEDS ORDERED: MORPHINE SULFATE 4 MG/ML SYRINGE IV STA (06:47)
--- NOTE | 2018-11-22 06:51 | ED ---
Abdominal Pain HPI - General Source: EMS, RN notes reviewed, old records reviewed Mode of arrival: EMS Limitations: no limitations <Adenike Sims - Last Filed: 11/22/18 08:29> <Reg Kwon - Last Filed: 11/22/18 08:56> - General Chief Complaint: Abdominal Pain Stated Complaint: Kidney stones Time Seen by Provider: 11/22/18 06:37 - History of Present Illness Initial Comments: This patient's a 68-year-old male presents bridge from today for continued right flank pain. Patient has history of CAD, diabetes, hyperlipidemia and hypertension, rheumatoid arthritis.He was seen in the emergency department on November 18 was diagnosed with a 6 mm kidney stone. Patient reports she's had persistent pain since that time. He reports his been taking his at home narcotic pain medicine for chronic back pain. He states it is not helping. Here in the emergency department early this morning via EMS. Patient states he does her urologist Dr. Engel, for history of prostate cancer. Patient reports he took his Flomax last night and didn't have frequent urination. Reports he started to have some sharp worsening pains around 3 AM. (Adenike Sims) - Related Data Home Medications Medication Instructions Recorded Confirmed Aspirin EC [Ecotrin Low Dose] 81 mg PO DAILY 12/28/14 11/22/18 Metoprolol Tartrate 25 mg PO QAM 12/28/14 11/22/18 Zolpidem Tartrate [Ambien] 10 mg PO HS PRN 12/28/14 11/22/18 metFORMIN HCL [Glucophage] 1,000 mg PO BID-W/MEALS 01/04/16 11/22/18 Atorvastatin [Lipitor] 80 mg PO DAILY 03/22/16 11/22/18 Hydroxychloroquine Sulfate 200 mg PO BID 07/10/18 11/22/18 [Plaquenil] Venlafaxine HCl ER [Effexor XR] 75 mg PO DAILY 07/10/18 11/22/18 sulfaSALAzine [Azulfidine] 1,500 mg PO BID 07/10/18 11/22/18 Diazepam 10 mg PO HS PRN 11/18/18 11/22/18 Omeprazole 20 mg PO DAILY 11/18/18 11/22/18 Tamsulosin [Flomax] 0.4 mg PO HS 11/22/18 11/22/18 Previous Rx's Medication Instructions Recorded Ketorolac [Toradol] 10 mg PO Q6HR #15 tab 11/22/18 Ondansetron Odt [Zofran Odt] 4 mg PO Q8HR PRN #12 tab 11/22/18 Allergies Allergy/AdvReac Type Severity Reaction Status Date / Time hydrocodone bitartrate AdvReac AGITATION,CAN Verified 11/22/18 08:48 [From Vicodin] TAKE NORCO AND TYLENOL Review of Systems ROS Other: All systems not noted in ROS Statement are negative. <Adenike Sims - Last Filed: 11/22/18 08:29> ROS Other: All systems not noted in ROS Statement are negative. <Reg Kwon - Last Filed: 11/22/18 08:56> ROS Statement: Those systems with pertinent positive or pertinent negative responses have been documented in the HPI. Past Medical History Past Medical History: Coronary Artery Disease (CAD), Chest Pain / Angina, Diabetes Mellitus, GERD/Reflux, Hyperlipidemia, Hypertension, Musculoskeletal Disorder, Osteoarthritis (OA), Rheumatoid Arthritis (RA), Sleep Apnea/CPAP/BIPAP Additional Past Medical History / Comment(s): CHRONIC PAIN, RS3PE, DDD, cervical stenosis, upper extremity radiculopathy, stroke behind RT EYE, USES CPAP OCCAS. History of Any Multi-Drug Resistant Organisms: None Reported Past Surgical History: Ear Surgery, Heart Catheterization With Stent, Hernia Repair, Joint Replacement, Orthopedic Surgery Additional Past Surgical History / Comment(s): 01/10/15 anterior cervical decompression/fusion, 2004 CARDIAC STENT X1, RT KNEE REPLACEMENT, UVULectomy, RT EAR SURGERY, UMBILICAL HERNIA REPAIR, R eye injections for occular stroke tx, colonoscopy-normal Past Anesthesia/Blood Transfusion Reactions: No Reported Reaction Additional Past Anesthesia/Blood Transfusion Reaction / Comment(s): TAKES AWHILE TO WAKE UP. Date of Last Stent Placement:: 2004? Past Psychological History: Depression Smoking Status: Former smoker Past Alcohol Use History: Occasional Past Drug Use History: None Reported - Past Family History Mother History Unknown: Yes Father History Unknown: Yes Additional Family Medical History / Comment(s): Pt has not spoken to his mother or father in 30 yrs. <Adenike Sims - Last Filed: 11/22/18 08:29> General Exam Limitations: no limitations General appearance: alert, in no apparent distress Head exam: Present: atraumatic, normocephalic, normal inspection Eye exam: Present: normal appearance, PERRL, EOMI. Absent: scleral icterus, conjunctival injection, periorbital swelling ENT exam: Present: normal exam, mucous membranes moist <Adenike Sims - Last Filed: 11/22/18 08:29> - General Exam Comments Initial Comments: 68 year old male, writhing around in pain. (Adenike Sims) Course <Adenike Sims - Last Filed: 11/22/18 08:29> <Reg Kwon - Last Filed: 11/22/18 08:56> Vital Signs 11/22/18 06:40 Temperature 97.7 F Pulse Rate 69 Respiratory 20 Rate Blood Pressure 141/98 O2 Sat by Pulse 98 Oximetry - Reevaluation(s) Reevaluation #1: 11/22/18 08:30 Patient is reevaluated and resting comfortably in bed. Patient appears in no distress. (Adenike Sims) Reevaluation #2: 11/22/18 08:56 PA supervision: I proceeded [id number] evaluation patient did discuss findings the patient's I did review the imaging and reports as well as old charting. I do agree with assessment and plan. Patient's patient's consistent with kidney stone and renal colic. (Reg Kwon) Medical Decision Making - Lab Data Result diagrams: 11/22/18 06:43 11/22/18 06:43 <Adenike Sims - Last Filed: 11/22/18 08:29> - Lab Data Result diagrams: 11/22/18 06:43 11/22/18 06:43 <Reg Kwon - Last Filed: 11/22/18 08:56> - Medical Decision Making is a 68-year-old male presents emergency department today with persistent right flank pain for the past 4 days. Sinus with a 6 mm distal ureteral stone. At this time Patient has been taking Flomax and pain medicines that he sat at home but arrived with worsening pain starting at 3 AM. Patient was given IV fluids labwork obtained. He appeared in moderate discomfort upon arrival. Patient was reevaluated later and is resting comfortably. Labwork was reviewed relatively unremarkable. Normal white blood cell count. Urinalysis shows no infection or red blood cells at this time. Kidney function is stable. KUB shows no evidence of obstructive stone. Patient does live for these findings. He continues to have some pain. I discussed that this possibly could still be retained stone. I discussed the Patient will need to follow-up with urology. The meantime he can use Toradol and Zofran to help with his pain and some of his RAD prescribed pain medicines. (Adenike Sims) - Lab Data Lab Results 11/22/18 11/22/18 11/22/18 Range/Units 06:43 06:43 06:43 WBC 5.0 (3.8-10.6) k/uL RBC 3.82 L (4.30-5.90) m/uL Hgb 11.4 L (13.0-17.5) gm/dL Hct 37.2 L (39.0-53.0) % MCV 97.4 (80.0-100.0) fL MCH 29.9 (25.0-35.0) pg MCHC 30.7 L (31.0-37.0) g/dL RDW 14.8 (11.5-15.5) % Plt Count 216 (150-450) k/uL Neutrophils % 78 % Lymphocytes % 13 % Monocytes % 5 % Eosinophils % 2 % Basophils % 0 % Neutrophils # 3.9 (1.3-7.7) k/uL Lymphocytes # 0.7 L (1.0-4.8) k/uL Monocytes # 0.3 (0-1.0) k/uL Eosinophils # 0.1 (0-0.7) k/uL Basophils # 0.0 (0-0.2) k/uL PT 10.4 (9.0-12.0) sec INR 1.0 (<1.2) APTT 25.3 (22.0-30.0) sec Sodium 140 (137-145) mmol/L Potassium 4.2 (3.5-5.1) mmol/L Chloride 104 (98-107) mmol/L Carbon Dioxide 29 (22-30) mmol/L Anion Gap 7 mmol/L BUN 14 (9-20) mg/dL Creatinine 1.23 (0.66-1.25) mg/dL Est GFR (CKD-EPI)AfAm 71 (>60 ml/min/1.73 sqM) Est GFR (CKD-EPI)NonAf 61 (>60 ml/min/1.73 sqM) Glucose 149 H (74-99) mg/dL Calcium 9.5 (8.4-10.2) mg/dL Total Bilirubin 0.5 (0.2-1.3) mg/dL AST 25 (17-59) U/L ALT 38 (21-72) U/L Alkaline Phosphatase 86 (38-126) U/L Total Protein 6.4 (6.3-8.2) g/dL Albumin 4.1 (3.5-5.0) g/dL Amylase 35 (30-110) U/L Lipase 66 (23-300) U/L Urine Color Urine Appearance (Clear) Urine pH (5.0-8.0) Ur Specific [place] (1.001-1.035) Urine Protein (Negative) Urine Glucose (UA) (Negative) Urine Ketones (Negative) Urine Blood (Negative) Urine Nitrite (Negative) Urine Bilirubin (Negative) Urine Urobilinogen (<2.0) mg/dL Ur Leukocyte Esterase (Negative) Urine WBC (0-5) /hpf Ur Squamous Epith Cells (0-4) /hpf Urine Bacteria (None) /hpf Hyaline Casts (0-2) /lpf Urine Mucus (None) /hpf 11/22/18 Range/Units 07:30 WBC (3.8-10.6) k/uL RBC (4.30-5.90) m/uL Hgb (13.0-17.5) gm/dL Hct (39.0-53.0) % MCV (80.0-100.0) fL MCH (25.0-35.0) pg MCHC (31.0-37.0) g/dL RDW (11.5-15.5) % Plt Count (150-450) k/uL Neutrophils % % Lymphocytes % % Monocytes % % Eosinophils % % Basophils % % Neutrophils # (1.3-7.7) k/uL Lymphocytes # (1.0-4.8) k/uL Monocytes # (0-1.0) k/uL Eosinophils # (0-0.7) k/uL Basophils # (0-0.2) k/uL PT (9.0-12.0) sec INR (<1.2) APTT (22.0-30.0) sec Sodium (137-145) mmol/L Potassium (3.5-5.1) mmol/L Chloride (98-107) mmol/L Carbon Dioxide (22-30) mmol/L Anion Gap mmol/L BUN (9-20) mg/dL Creatinine (0.66-1.25) mg/dL Est GFR (CKD-EPI)AfAm (>60 ml/min/1.73 sqM) Est GFR (CKD-EPI)NonAf (>60 ml/min/1.73 sqM) Glucose (74-99) mg/dL Calcium (8.4-10.2) mg/dL Total Bilirubin (0.2-1.3) mg/dL AST (17-59) U/L ALT (21-72) U/L Alkaline Phosphatase (38-126) U/L Total Protein (6.3-8.2) g/dL Albumin (3.5-5.0) g/dL Amylase (30-110) U/L Lipase (23-300) U/L Urine Color Dark Brown Urine Appearance Clear (Clear) Urine pH 5.5 (5.0-8.0) Ur Specific [place] 1.030 (1.001-1.035) Urine Protein 1+ H (Negative) Urine Glucose (UA) Negative (Negative) Urine Ketones Negative (Negative) Urine Blood Negative (Negative) Urine Nitrite Negative (Negative) Urine Bilirubin 1+ H (Negative) Urine Urobilinogen 2.0 (<2.0) mg/dL Ur Leukocyte Esterase Negative (Negative) Urine WBC 3 (0-5) /hpf Ur Squamous Epith Cells 2 (0-4) /hpf Urine Bacteria Rare H (None) /hpf Hyaline Casts 1 (0-2) /lpf Urine Mucus Many H (None) /hpf Disposition Is patient prescribed a controlled substance at d/c from ED?: No Time of Disposition: 08:31 <Adenike Sims - Last Filed: 11/22/18 08:29> <Reg Kwon - Last Filed: 11/22/18 08:56> Clinical Impression: Right flank pain Disposition: HOME SELF-CARE Condition: Good Instructions (If sedation given, give patient instructions): Abdominal Pain (ED) Additional Instructions: Please use medication as discussed. Please follow up with urology. Please return to the emergency room if your symptoms increase or worsen or for any other concerns. Prescriptions: Ketorolac [Toradol] 10 mg PO Q6HR #15 tab Ondansetron Odt [Zofran Odt] 4 mg PO Q8HR PRN #12 tab PRN Reason: Nausea Referrals: Edgard Dixon DO [Primary Care Provider] - 1-2 days Orestes Stern MD [STAFF PHYSICIAN] - 1-2 days
[2018-11-22 06:54] VITALS: TEMP 97.7
[2018-11-22] MEDS ORDERED: TAMSULOSIN 0.4 MG CAP.ER.24H PO STA (06:55)
[2018-11-22 06:56] LABS: Basophils % (A) 0 %; Eosinophils # (A) 0.1 k/uL (0-0.7); Eosinophils % (A) 2 %; HCT 37.2 % (39.0-53.0); HGB 11.4 gm/dL (13.0-17.5); Lymphocytes # (A) 0.7 k/uL (1.0-4.8); Lymphocytes % (A) 13 %; MCH 29.9 pg (25.0-35.0); MCHC 30.7 g/dL (31.0-37.0); MCV 97.4 fL (80.0-100.0); Mean Platelet Volume 6.9; Monocytes # (A) 0.3 k/uL (0-1.0); Monocytes % (A) 5 %; Neutrophils # (A) 3.9 k/uL (1.3-7.7); Neutrophils % (A) 78 %; Platelet Count 216 k/uL (150-450); RBC 3.82 m/uL (4.30-5.90); RDW 14.8 % (11.5-15.5)
[2018-11-22 07:04] LABS: Albumin 4.1 g/dL (3.5-5.0); Calcium 9.5 mg/dL (8.4-10.2); Potassium 4.2 mmol/L (3.5-5.1); Total Bilirubin 0.5 mg/dL (0.2-1.3); Total Protein 6.4 g/dL (6.3-8.2)
[2018-11-22 07:05] LABS: Partial Thromboplastin Time 25.3 sec (22.0-30.0); Prothrombin Time 10.4 sec (9.0-12.0)
--- NOTE | 2018-11-22 07:27 | XR ---
EXAMINATION TYPE: XR KUB , 2 VIEWS DATE OF EXAM ORDERED: 11/22/2018 HISTORY: abdominal pain. COMPARISON: None. FINDINGS: The lung bases are clear. Within the abdomen, the abdominal gas pattern is normal. No evidence of obstruction or free air. Ther e are phleboliths within the pelvis. IMPRESSION: NONACUTE ABDOMINAL PICTURE.
[2018-11-22 08:12] LABS: Appearance,Urine Clear (Clear); Bacteria,Urine Rare /hpf; Bilirubin,Urine 1+ (Negative); Blood,Urine Negative (Negative); Color,Urine Dark Brown; Glucose,Urine (UA) Negative (Negative); Hyaline Casts,Urine 1 /lpf (0-2); Ketones,Urine Negative (Negative); Leukocyte Esterase,Urine Negative (Negative); Mucus,Urine Many /hpf; Nitrite,Urine Negative (Negative); PH, Urine 5.5 (5.0-8.0); Protein,Urine 1+ (Negative); Squamous Epithelial Cell,Urine 2 /hpf (0-4); WBC,Urine 3 /hpf (0-5)
[2018-11-22] MEDS ORDERED: HYDROmorphone 1 MG/ML 1 ML SYRINGE IVP STA (08:28)
[2018-11-22] MEDS ORDERED: ACET/COD 300 MG/30 MG STARTER PACK 6 TAB BTL PO STA (08:59)
[2018-11-22 09:37] VITALS: BP 123/79; PULSE 80; RESP 16
== END 2018-11-22 09:37 | disposition home or self-care (01) ==
LOC: EC 06:36
DX: R10.9 Unspecified abdominal pain (principal); M54.9 Dorsalgia, unspecified; G89.29 Other chronic pain; I25.119 Atherosclerotic heart disease of native coronary artery with unspecified angina pectoris; E11.9 Type 2 diabetes mellitus without complications; K21.9 Gastro-esophageal reflux disease without esophagitis; E78.5 Hyperlipidemia, unspecified; I10 Essential (primary) hypertension; M19.90 Unspecified osteoarthritis, unspecified site; M06.9 Rheumatoid arthritis, unspecified; G47.30 Sleep apnea, unspecified; F32.9 Major depressive disorder, single episode, unspecified; Z87.891 Personal history of nicotine dependence; Z88.5 Allergy status to narcotic agent; Z79.82 Long term (current) use of aspirin; Z79.84 Long term (current) use of oral hypoglycemic drugs; Z79.891 Long term (current) use of opiate analgesic; Z79.899 Other long term (current) drug therapy; Z85.46 Personal history of malignant neoplasm of prostate; Z87.442 Personal history of urinary calculi; Z96.651 Presence of right artificial knee joint; Z95.5 Presence of coronary angioplasty implant and graft; Z99.89 Dependence on other enabling machines and devices; Z98.1 Arthrodesis status
CPT/HCPCS: 99285; 96374; 96375 ×4; 96361 ×3; 51798; 36415; 80053; 82150; 83690; 85025; 85610; 85730; 81001; 87086; 74018; J2270; J2405; J1885; J1170; C9113

== ENCOUNTER 2018-12-01 10:15 | Day surgery (SDC) | payer MEDICARE, BC ==
--- NOTE | 2018-11-26 16:14 | P.GSHP ---
History of Present Illness H&P Date: 11/26/18 Chief Complaint: Right flank pain The patient is a 68-year-old white male with no prior history of urolithiasis. He recently presented with right flank and right lower quadrant abdominal pain. A computed tomography scan showed mild right hydronephrosis secondary to a 6 mm right distal ureteral calculus, which was seen on a plain radiograph graft. The computed tomography scan also showed bilateral large renal cysts. He was offered the options of medical expulsion therapy, ureteroscopy with laser lithotripsy, and extracorporal shockwave lithotripsy (ESWL). After weighing the pros and cons of each, he has elected to undergo ESWL. Incidentally, he was diagnosed with prostate cancer in November 2016, which was treated with radiation therapy and androgen deprivation therapy. His PSA level is currently undetectable. - Constitutional Constitutional: Reports chills - Gastrointestinal Gastrointestinal: Reports nausea, Reports vomiting - Genitourinary (Female) Genitourinary: Reports flank pain, Reports hematuria Past Medical History Past Medical History: Coronary Artery Disease (CAD), Chest Pain / Angina, D iabetes Mellitus, GERD/Reflux, Hyperlipidemia, Hypertension, Musculoskeletal Disorder, Osteoarthritis (OA), Rheumatoid Arthritis (RA), Sleep Apnea/CPAP/BIPAP Additional Past Medical History / Comment(s): CHRONIC PAIN, RS3PE, DDD, cervical stenosis, upper extremity radiculopathy, stroke behind RT EYE, USES CPAP OCCAS. History of Any Multi-Drug Resistant Organisms: None Reported Past Surgical History: Ear Surgery, Heart Catheterization With Stent, Hernia Repair, Joint Replacement, Orthopedic Surgery Additional Past Surgical History / Comment(s): 01/10/15 anterior cervical decompression/fusion, 2004 CARDIAC STENT X1, RT KNEE REPLACEMENT, UVULectomy, RT EAR SURGERY, UMBILICAL HERNIA REPAIR, R eye injections for occular stroke tx, colonoscopy-normal Past Anesthesia/Blood Transfusion Reactions: No Reported Reaction Additional Past Anesthesia/Blood Transfusion Reaction / Comment(s): TAKES AWHILE TO WAKE UP. Date of Last Stent Placement:: 2004? Past Psychological History: Depression Smoking Status: Former smoker Past Alcohol Use History: Occasional Past Drug Use History: None Reported - Past Family History Mother History Unknown: Yes Father History Unknown: Yes Additional Family Medical History / Comment(s): Pt has not spoken to his mother or father in 30 yrs. Medications and Allergies Home Medications Medication Instructions Recorded Confirmed Type Aspirin EC [Ecotrin Low Dose] 81 mg PO DAILY 12/28/14 11/22/18 History Metoprolol Tartrate 25 mg PO QAM 12/28/14 11/22/18 History Zolpidem Tartrate [Ambien] 10 mg PO HS PRN 12/28/14 11/22/18 History metFORMIN HCL [Glucophage] 1,000 mg PO BID-W/MEALS 01/04/16 11/22/18 History Atorvastatin [Lipitor] 80 mg PO DAILY 03/22/16 11/22/18 History Hydroxychloroquine Sulfate 200 mg PO BID 07/10/18 11/22/18 History [Plaquenil] Venlafaxine HCl ER [Effexor XR] 75 mg PO DAILY 07/10/18 11/22/18 History sulfaSALAzine [Azulfidine] 1,500 mg PO BID 07/10/18 11/22/18 History Diazepam 10 mg PO HS PRN 11/18/18 11/22/18 History Omeprazole 20 mg PO DAILY 11/18/18 11/22/18 History Ketorolac [Toradol] 10 mg PO Q6HR #15 tab 11/22/18 Rx Ondansetron Odt [Zofran Odt] 4 mg PO Q8HR PRN #12 tab 11/22/18 Rx Tamsulosin [Flomax] 0.4 mg PO HS 11/22/18 11/22/18 History Allergies Allergy/AdvReac Type Severity Reaction Status Date / Time hydrocodone bitartrate AdvReac AGITATION,CAN Verified 11/22/18 08:48 [From Vicodin] TAKE NORCO AND TYLENOL Surgical - Exam - General well developed, well nourished, no distress - Respiratory normal respiratory effort, clear to auscultation - Cardiovascular Rhythm: regular Abnormal Heart Sounds: no systolic murmur, no diastolic murmur, no rub, no S3 Gallop, no S4 Gallop, no click, no other - Abdomen Abdomen: soft, non tender, no guarding, no rigid, no rebound - Psychiatric oriented to time, oriented to person, oriented to place, speech is normal, memory intact Results - Imaging Abdominal x-ray: report reviewed, image reviewed CT scan - abdomen: report reviewed, image reviewed Assessment and Plan (1) Calculus of ureter Status: Acute Code(s): N20.1 - CALCULUS OF URETER SNOMED Code(s): 51156814 Plan: Right ESWL. The procedure has been reviewed in detail with the patient. He understands risks to include anesthesia, injury to adjacent organs, treatment failure, incomplete fragmentation, and Steinstrasse. He is aware of the possible need for secondary treatments. The procedure will be performed by Dr. Dumas.
[2018-11-27 13:34] VITALS: BMI 35.9
[~2018-12-01 10:15] MED LIST changes: -LACTATED RINGERS 1,000 ML IV ONE; +LACTATED RINGERS 1,000 ML IV SCH; +LIDOCAINE 1% 20 ML VIAL (10MG/ML) FOR IV START INTRADERMA PRN; +Pre Op ABX Message 1 EACH MISC MISCELLANE ONE
--- NOTE | 2018-12-01 10:31 | XR ---
EXAMINATION TYPE: XR KUB DATE OF EXAM: 12/01/2018 COMPARISON: 11/22/2018 INDICATION: Kidney stone presurgical TECHNIQUE: Single view abdomen supine view FINDINGS: There is a normal bowel gas pattern. Psoas margins are normal. No organomegaly is present. 2 calcifications which are stable are within the pelvis. There may be some calcification just inferio r to the right L5 transverse process with a transverse dimension of 0.8 cm. Suspicious renal stones a re not otherwise identified. IMPRESSION: 1. Possible right mid ureteral stones.
[2018-12-01 10:44] VITALS: TEMP 98.2
[2018-12-01 11:10] LABS: Glucose,Whole Blood 97 mg/dL (75-99)
[2018-12-01] MEDS ORDERED: KETAMINE 10 MG/ML 20 ML VIAL ONE (11:10)
[2018-12-01] MEDS ORDERED: MIDAZOLAM 2 MG/2 ML VIAL ONE (11:10)
[2018-12-01] MEDS ORDERED: GLYCOPYRROLATE 0.2 MG/ML 2 ML VIAL ONE (11:10)
[2018-12-01] MEDS ORDERED: LIDOCAINE 1% INJ 10MG/ML (20 ML MDV) ONE (11:10)
[2018-12-01] MEDS ORDERED: PROPOFOL 10 MG/ML 20 ML VIAL IV ONE (11:10)
[2018-12-01] MEDS ORDERED: fentaNYL (PF) 50 MCG/ML 2 ML AMP ONE (11:10)
--- NOTE | 2018-12-01 11:50 | P.OP ---
Date of Procedure: 12/01/18 Preoperative Diagnosis: Right ureteral calculus Postoperative Diagnosis: Same Procedure(s) Performed: Extracorporeal shockwave lithotripsy 1750 shocks at energy level 6 Anesthesia: MAC Surgeon: Humberto Dumas Pathology: none sent Condition: stable Disposition: PACU Indications for Procedure: The patient is 68. He has a 7 mm distal ureteral stone. He comes for shockwave lithotripsy Description of Procedure: Patient brought to the operating suite. Placed on the lithotripsy table. The stone was seen in 2 views of fluoroscopy. 1750 shocks at energy level . administered and the stone fractures nicely patient's awake and returned recovery in good condition. He tolerated the procedure well. He will be seen in one week for follow-up KUB.
[2018-12-01 12:20] VITALS: RESP 18
[2018-12-01 12:59] VITALS: BP 119/77
[2018-12-01 13:08] VITALS: PULSE 60
== END 2018-12-01 13:18 | disposition home or self-care (01) ==
LOC: ORWHC2ENDO 10:15
PROVIDERS: ATTEND Urology
DX: N13.2 Hydronephrosis with renal and ureteral calculous obstruction (principal); I25.119 Atherosclerotic heart disease of native coronary artery with unspecified angina pectoris; I10 Essential (primary) hypertension; Z87.891 Personal history of nicotine dependence; K21.9 Gastro-esophageal reflux disease without esophagitis; E11.9 Type 2 diabetes mellitus without complications; E78.5 Hyperlipidemia, unspecified; F32.9 Major depressive disorder, single episode, unspecified; M19.90 Unspecified osteoarthritis, unspecified site; M06.9 Rheumatoid arthritis, unspecified; G47.30 Sleep apnea, unspecified; Z99.89 Dependence on other enabling machines and devices; G89.29 Other chronic pain; M48.02 Spinal stenosis, cervical region; M54.12 Radiculopathy, cervical region; Z86.73 Personal history of transient ischemic attack (TIA), and cerebral infarction without residual deficits; Z85.46 Personal history of malignant neoplasm of prostate; Z92.3 Personal history of irradiation; Z95.5 Presence of coronary angioplasty implant and graft; Z96.651 Presence of right artificial knee joint; Z79.84 Long term (current) use of oral hypoglycemic drugs; Z79.1 Long term (current) use of non-steroidal anti-inflammatories (NSAID); Z79.82 Long term (current) use of aspirin; Z79.899 Other long term (current) drug therapy
CPT/HCPCS: 74018; 50590; J2250; J2001; J3010; J2704

== ENCOUNTER → 2018-12-08 | Outpatient (CLI) | payer MEDICARE, BC ==
--- NOTE | 2018-12-08 13:27 | XR ---
EXAMINATION TYPE: XR KUB DATE OF EXAM: 12/08/2018 COMPARISON: 12/01/2018 HISTORY: Kidney stone TECHNIQUE: One view abdominal series FINDINGS: The osseous structures are intact. The bowel gas pattern is nonspecific. Calcification centrally and paramedian to the right is no longer seen within the pelvis. Left hemipelvic calcifications stable. No suspicious calcifications overlying the kidneys. Hypertrophic and degenerative change of the spine. Arthropathy of the hips. Chronic acetabular labral tear on the left suspected. IMPRESSION: 1. Nonspecific abdomen. Right hemipelvic calcification is no longer seen correlate for recently pass ed stone.
== END | disposition home or self-care (01) ==
LOC: RADXRMAIN 12:21
PROVIDERS: ATTEND Urology
DX: N20.0 Calculus of kidney (principal); Z98.890 Other specified postprocedural states
CPT/HCPCS: 74018

== ENCOUNTER → 2019-01-30 | Outpatient (CLI) | payer MEDICARE, OTHER ==
--- NOTE | 2019-01-30 13:19 | US ---
EXAMINATION TYPE: US venous doppler duplex LE RT DATE OF EXAM: 01/30/2019 10:30 AM COMPARISON: NONE CLINICAL HISTORY: M25.561 Pain Rt Knee,Z96.651 Presence of artificial knee. edema SIDE PERFORMED: Right TECHNIQUE: The lower extremity deep venous system is examined utilizing real time linear array sonog gila with graded compression, doppler sonography and color-flow sonography. VESSELS IMAGED: External Iliac Vein (EIV) Common Femoral Vein Deep Femoral Vein Greater Saphenous Vein * Femoral Vein Popliteal Vein Small Saphenous Vein * Proximal Calf Veins (* superficial vessels) Right Leg: Negative for DVT IMPRESSION: 1. Right lower extremity ultrasound negative for deep venous thrombosis.
== END | disposition home or self-care (01) ==
LOC: RADUSWWP 10:26
PROVIDERS: ATTEND Orthopaedic Surgery
DX: M25.561 Pain in right knee (principal); M79.661 Pain in right lower leg; E11.9 Type 2 diabetes mellitus without complications; I80.9 Phlebitis and thrombophlebitis of unspecified site; Z96.651 Presence of right artificial knee joint

== ENCOUNTER 2019-05-19 08:00 | Day surgery (SDC) | payer MEDICARE, BC ==
[2019-05-15 13:52] VITALS: BMI 34.7
[~2019-05-19 08:00] MED LIST changes: +ALPRAZolam 0.25 MG TAB PO PRN; +ALPRAZolam 0.5 MG TAB PO PRN; +ASPIRIN 325 MG TAB PO STA; -LACTATED RINGERS 1,000 ML IV SCH; -LIDOCAINE 1% 20 ML VIAL (10MG/ML) FOR IV START INTRADERMA PRN; +NITROGLYCERIN SL TABS 0.4 MG TAB SUBLINGUAL PRN; -Pre Op ABX Message 1 EACH MISC MISCELLANE ONE; +SODIUM CHLORIDE 0.9% 1,000 ML in EMPTY BAG 1 BAG IV ONE
[2019-05-19] MEDS ORDERED: SODIUM CHLORIDE 0.9% 1,000 ML IV ONE (08:30)
[2019-05-19 08:39] LABS: Basophils % (A) 1 %; Eosinophils # (A) 0.3 k/uL (0-0.7); Eosinophils % (A) 6 %; HCT 44.5 % (39.0-53.0); HGB 14.4 gm/dL (13.0-17.5); Lymphocytes % (A) 21 %; MCH 29.9 pg (25.0-35.0); MCHC 32.4 g/dL (31.0-37.0); MCV 92.3 fL (80.0-100.0); Mean Platelet Volume 7.6; Monocytes # (A) 0.2 k/uL (0-1.0); Monocytes % (A) 5 %; Neutrophils # (A) 3.1 k/uL (1.3-7.7); Neutrophils % (A) 66 %; Platelet Count 206 k/uL (150-450); RBC 4.82 m/uL (4.30-5.90); RDW 13.6 % (11.5-15.5); WBC 4.7 k/uL (3.8-10.6)
[2019-05-19 08:40] LABS: Glucose,Whole Blood 120 mg/dL (75-99)
[2019-05-19 08:51] LABS: Calcium 9.4 mg/dL (8.4-10.2); Potassium 4.5 mmol/L (3.5-5.1)
[2019-05-19] MEDS ORDERED: LIDOCAINE 1% INJ 10MG/ML (20 ML MDV) ONE (09:32)
[2019-05-19] MEDS ORDERED: VERAPAMIL 2.5 MG/ML 2 ML AMP ONE (09:32)
[2019-05-19] MEDS ORDERED: MIDAZOLAM 2 MG/2 ML VIAL IV ONE (09:40)
[2019-05-19] MEDS ORDERED: LIDOCAINE 1% INJ 10MG/ML (20 ML MDV) SQ ONE (09:42)
[2019-05-19] MEDS: VERAPAMIL SYRINGE (5 MG/10 ML) INTRAARTER ONE ×2 (09:43→10:30)
[2019-05-19] MEDS ORDERED: HYDROmorphone 1 MG/ML 1 ML SYRINGE ONE (09:43)
[2019-05-19] MEDS ORDERED: HYDROmorphone 1 MG/ML 1 ML SYRINGE IVP ONE (09:45)
[2019-05-19] MEDS ORDERED: BIVALIRUDIN 250 MG in SODIUM CHLORIDE 0.9% 50 ML IV ONE (09:54)
[2019-05-19] MEDS ORDERED: BIVALIRUDIN BOLUS 250 MG/50 ML IV ONE (09:54)
[2019-05-19] MEDS ORDERED: CLOPIDOGREL 75 MG TAB ONE (09:55)
[2019-05-19] MEDS: NITROGLYCERIN 1000MCG/10ML SYRINGE INTRACORON ONE ×2 (10:10→10:20)
[2019-05-19] MEDS ORDERED: CLOPIDOGREL 75 MG TAB PO ONE (10:20)
[2019-05-19] MEDS ORDERED: IOPAMIDOL-370 125ML BTL INJ ONE (10:28)
[2019-05-19] MEDS ORDERED: ACETAMINOPHEN TAB 500 MG TAB PO PRN (10:48)
[2019-05-19] MEDS ORDERED: IBUPROFEN 800 MG TAB PO PRN (10:48)
[2019-05-19] MEDS ORDERED: NITROGLYCERIN SL TABS 0.4 MG TAB SUBLINGUAL PRN (10:49)
[2019-05-19] MEDS ORDERED: ZOLPIDEM 5 MG TAB PO PRN (10:49)
[2019-05-19] MEDS ORDERED: ATROPINE SULFATE 0.1 MG/ML 10ML SYRINGE IV PRN (10:49)
[2019-05-19] MEDS ORDERED: RX INFO: IV CONTRAST WAS GIVEN 1 EACH MISC MISCELLANE PRN (10:49)
[2019-05-19] MEDS ORDERED: MAG HYDROX/AL HYDROX/SIMETH 30 ML CUP PO PRN (10:49)
[2019-05-19] MEDS ORDERED: SODIUM CHLORIDE 0.9% 1,000 ML IV SCH (11:00)
--- NOTE | 2019-05-19 11:00 | P.PCN ---
Date of Procedure: 05/19/19 Operative Findings: CARDIAC CATHETERIZATION AND PERCUTANEOUS CORONARY INTERVENTION PERFORMING PHYSICIAN: Kareem Jones MD, [facility] PROCEDURE PERFORMED: 1. Selective right and left coronary angiogram 2. Left heart catheterization 3. Successful stenting of the distal RCA using 3.0 x 18 mm Xience DORIE with excellent angiographic results 4. Successful stenting of the mid RCA using 3.0 x 28 mm Xience DORIE with an excellent angiographic results INDICATION: This is a very pleasant 68-year-old gentleman with history of coronary artery disease as well as hypertension and dyslipidemia was experiencing chest discomfort and shortness of breath. He underwent myocardial perfusion imaging stress test and that revealed reversible defect involving the lateral wall of the ventricle. Because of that a heart catheterization was advised COMPLICATION: None APPROACH: Right radial artery LEVEL OF SEDATION: Moderate with sedation in length of 53 minutes PROCEDURE DESCRIPTION: After obtaining an informed consent, the patient was brought to cardiac cath lab radiology technician. Local anesthesia was performed using lidocaine subcutaneously. The right radial artery was cannulated using Seldinger technique, the guidewire passed easily, following that we advanced a 5-Vincentian sheath dilator assembly, the wire and dilator were removed and sheath was flushed. Following that, 2 mg of verapamil along with 5000 unit heparin were given. Selective right and left coronary angiogram using a 6-Vincentian JR4 and JL 3.5 catheters. Following that we did left heart catheterization using 6-Vincentian pigtail catheter. Subsequently I did intervene on the RCA. The procedure was completed there was no complication. SELECTIVE CORONARY ANGIOGRAM: The right coronary artery: Is a large caliber vessel and a dominant vessel. The proximal RCA appeared to be angiographically normal. The mid RCA has a critical eccentric lesion appeared to be in the range of 95-99%. The RCA distally has another critical lesion appears to be in the range of 80-90%. The RCA after that bifurcates into PDA and PLV branches and both appear to have mild disease only. Left main: Calcified was mild disease only. Bifurcates into LCx, ramus intermedius, and left anterior descending artery The left circumflex: Is a large caliber vessel and nondominant vessel. The proximal LCx has a lesion appeared to be in the range of 70-80%. The mid and distal LCx appeared to have mild disease only. The ramus intermedius: Is a large caliber vessel. It does have mild disease only. The left anterior descending artery: The LAD is a large caliber vessel. It does have mild disease in the proximal to midportion. It gives rises into a small diagonal branch which appeared to have mild disease only. HEMODYNAMICS: The LVEDP was 4-8 mmHg without significant gradient across aortic valve PCI OF THE RCA: Anticoagulation was initiated using Angiomax. Subsequently I did engage the RCA using JR4 guide. I did wire the RCA using a whisper wire. I attempted advancing 2.5 x 12 mm balloon but the balloon want to cross the lesion in the mid RCA. I attempted advancing 1.5 mm x 12 mm balloon but this balloon also once cross the lesion in the mid RCA. At that point I did wire the RCA using a maciej wire with a run-through wire. Over the run through wire and I was able to advance 1.5 x 12 mm balloon were I did PTCA ballooning of the distal as well as mid RCA and the balloon was inflated under 12 abhi for about 20 seconds. Then I did PTCA below-knee using 2.5 x 12 mm balloon of the distal as well as mid RCA were the balloon was inflated under 12 abhi for 20 seconds. Subsequently for the lesion in the distal RCA I did deploy 3 0.0 x 18 mm Xience DORIE where the stent was positioned under fluoroscopy guidance and deployed under 18 abhi for 20 seconds. The stent was deployed after I pulled the maciej wire out proximal to the stent. Then I advanced the wire again across the stent. For the lesion in the mid RCA I deployed 3.0 x 28 mm another Xience DORIE where the stent again was positioned under fluoroscopy guidance and deployed under 18 abhi for 20 seconds. I postdilated the stent in the mid RCA using 3.75 mm NC balloon were the balloon was inflated under 18 and 20 abhi 2. The following angiogram showed an excellent angiographic results and the procedure was completed without any complication CONCLUSION: 1. Critical disease involving a dominant RCA in the distal and mid segments. I did successful stenting of the distal and mid RCA 2. Severe disease involving the proximal LCx 3. Mild disease involving the mid LAD POSTPROCEDURE MANAGEMENT: 1. PCI of the LCx 2. Dual antiplatelet therapy 3. Follow-up with the patient
[2019-05-19 12:04] LABS: Glucose,Whole Blood 139 mg/dL (75-99)
[2019-05-19 17:13] LABS: Glucose,Whole Blood 137 mg/dL (75-99)
[2019-05-19 20:01] LABS: Glucose,Whole Blood 108 mg/dL (75-99)
[2019-05-19] MEDS: HYDROXYCHLOROQUINE SULFATE 200 MG TAB PO SCH (20:13)
[2019-05-20 05:31] LABS: Basophils % (A) 1 %; Eosinophils # (A) 0.3 k/uL (0-0.7); Eosinophils % (A) 5 %; HCT 41.9 % (39.0-53.0); HGB 13.5 gm/dL (13.0-17.5); Lymphocytes % (A) 18 %; MCH 29.6 pg (25.0-35.0); MCHC 32.1 g/dL (31.0-37.0); MCV 92.2 fL (80.0-100.0); Mean Platelet Volume 7.5; Monocytes # (A) 0.3 k/uL (0-1.0); Monocytes % (A) 6 %; Neutrophils # (A) 3.8 k/uL (1.3-7.7); Neutrophils % (A) 69 %; Platelet Count 171 k/uL (150-450); RBC 4.54 m/uL (4.30-5.90); RDW 13.6 % (11.5-15.5); WBC 5.5 k/uL (3.8-10.6)
[2019-05-20 05:40] LABS: African American GFR (CKD) >90 (>60 ml/min/1.73 sqM); Anion Gap 9 mmol/L; Blood Urea Nitrogen 20 mg/dL (9-20); Carbon Dioxide 25 mmol/L (22-30); Chloride 103 mmol/L (98-107); Glucose 117 mg/dL (74-99); Non-African American GFR(CKD) 86 (>60 ml/min/1.73 sqM); Potassium 4.4 mmol/L (3.5-5.1); Sodium 137 mmol/L (137-145)
[2019-05-20 06:05] LABS: Glucose,Whole Blood 111 mg/dL (75-99)
[2019-05-20] MEDS ORDERED: PANTOPRAZOLE 40 MG TABLET PO SCH (07:30)
--- NOTE | 2019-05-20 08:46 | P.DS ---
Providers Date of admission: May 182019 Attending physician: Kareem Jones Consults: 05/19/19 10:49 Consult Physician Routine Consulting Provider: [facility] Consult Reason/Comments: Post Interventional patient Do you want consulting provider notified?: Already Contacted Primary care physician: Edgard Dixon [facility] Course: This is a 68-year-old gentleman who was experiencing symptoms of chest discomfort and underwent myocardial perfusion imaging stress test that revealed reversible defect involving the lateral wall of left ventricle. Subsequently he underwent a heart catheterization which revealed critical disease involving the mid RCA with a lesion appeared to be in the range of 99.9% along with severe disease involving the distal RCA with a lesion appeared to be in the range of 80-90%. Beside that he was found to have severe disease involving the proximal LCx. The patient underwent yesterday successful stenting of the mid and distal RCA with an excellent angiographic results and without any complication from right radial approach. He does have good the right radial pulse. He is asymptomatic this morning. He is going to be discharged home on dual antiplatelet therapy along with high intensity statin and I will follow-up with the patient next week in the office Plan - Discharge Summary Discharge Rx Participant: No New Discharge Prescriptions: New Clopidogrel [Plavix] 75 mg PO DAILY #90 tab Continue Metoprolol Tartrate 25 mg PO QAM Aspirin EC [Ecotrin Low Dose] 81 mg PO DAILY Atorvastatin [Lipitor] 80 mg PO DAILY Hydroxychloroquine Sulfate [Plaquenil] 200 mg PO BID Venlafaxine HCl ER [Effexor XR] 75 mg PO DAILY Omeprazole 20 mg PO DAILY Acetaminophen [Tylenol Extra Strength] 500 mg PO Q6H PRN PRN Reason: Pain Ibuprofen 800 mg PO Q8H PRN PRN Reason: Pain Discontinued metFORMIN HCL [Glucophage] 1,000 mg PO BID-W/MEALS Discharge Medication List Aspirin EC [Ecotrin Low Dose] 81 mg PO DAILY 12/28/14 [History] Metoprolol Tartrate 25 mg PO QAM 12/28/14 [History] Atorvastatin [Lipitor] 80 mg PO DAILY 03/22/16 [History] Hydroxychloroquine Sulfate [Plaquenil] 200 mg PO BID 07/10/18 [History] Venlafaxine HCl ER [Effexor XR] 75 mg PO DAILY 07/10/18 [History] Omeprazole 20 mg PO DAILY 11/18/18 [History] Acetaminophen [Tylenol Extra Strength] 500 mg PO Q6H PRN 05/15/19 [History] Ibuprofen 800 mg PO Q8H PRN 05/15/19 [History] Clopidogrel [Plavix] 75 mg PO DAILY #90 tab 05/20/19 [Rx] Follow up Appointment(s)/Referral(s): Kareem Joens MD [STAFF PHYSICIAN] - 05/26/19 1:45 pm (follow up appointment is on May 25 at 1:45 PM) Patient Instructions/Handouts: Coronary Angioplasty (DC), After Radial Heart Catheterization (GEN), Procedural Sedation (ED) Activity/Diet/Wound Care/Special Instructions: no driving for two days. no immersing right hand in dish water, bath tubs, pools for five days. no metformin for 48 hours. Avoid bending, flexing, pushing, pulling with right wrist for three days. Remove dressing tomorrow afternoon, then ok to shower. No need to reapply dressing to puncture site. signs of infection ie: fever, rash, purulent drainage, swelling contact doctor/return to ER.
[2019-05-20] MEDS ORDERED: ATORVASTATIN 80 MG TAB PO SCH (09:00)
[2019-05-20] MEDS ORDERED: METOPROLOL TARTRATE 25 MG TAB PO SCH (09:00)
[2019-05-20] MEDS ORDERED: ASPIRIN 81 MG PO SCH (09:00)
[2019-05-20] MEDS ORDERED: VENLAFAXINE HCL ER 75 MG CAP PO SCH (09:00)
[2019-05-20 09:31] VITALS: BP 110/75; PULSE 61; RESP 17; TEMP 98.2
[2019-05-20] MEDS ORDERED: CLOPIDOGREL 75 MG TAB PO SCH (10:00)
[2019-05-20] MEDS: HYDROXYCHLOROQUINE SULFATE 200 MG TAB PO SCH (10:15)
== END 2019-05-20 10:12 | disposition home or self-care (01) ==
LOC: CATHCVL 08:00 → 3SCARD 10:28 → CATHCVL 05-20 10:12
PROVIDERS: ATTEND Internal Medicine Interventional Cardiology
DX: I25.10 Atherosclerotic heart disease of native coronary artery without angina pectoris (principal); I10 Essential (primary) hypertension; E78.5 Hyperlipidemia, unspecified; Z79.82 Long term (current) use of aspirin; Z79.899 Other long term (current) drug therapy
CPT/HCPCS: 93458; 80048 ×2; 85025 ×2; C9600; C1769 ×3; C1887; C1725 ×3; C1874; C1894; J2250; J2001; J1170; J0583; Q9967

== ENCOUNTER → 2019-06-09 | Day surgery (SDC) | payer MEDICARE, BC ==
[2019-06-03 15:53] VITALS: BMI 35.3
[~2019-06-09] MED LIST changes: +ACETAMINOPHEN TAB 500 MG TAB PO PRN; +ASPIRIN 325 MG TAB PO ONE; -ASPIRIN 325 MG TAB PO STA; +ASPIRIN 81 MG PO SCH; +ATORVASTATIN 80 MG TAB PO ONE; +ATORVASTATIN 80 MG TAB PO SCH; +ATROPINE SULFATE 0.1 MG/ML 10ML SYRINGE IV PRN; +BIVALIRUDIN 250 MG in SODIUM CHLORIDE 0.9% 50 ML IV ONE; +BIVALIRUDIN BOLUS 250 MG/50 ML IV ONE; +CLOPIDOGREL 75 MG TAB ONE; +CLOPIDOGREL 75 MG TAB PO ONE; +CLOPIDOGREL 75 MG TAB PO SCH; +HYDROXYCHLOROQUINE SULFATE 200 MG TAB PO SCH; +IBUPROFEN 800 MG TAB PO PRN; +IOPAMIDOL-370 125ML BTL INJ ONE; +ISOSORBIDE MONONITRATE ER 60 MG TAB.ER.24H PO SCH; +LIDOCAINE 1% INJ 10MG/ML (20 ML MDV) ONE; +LIDOCAINE 1% INJ 10MG/ML (20 ML MDV) SQ ONE; +MAG HYDROX/AL HYDROX/SIMETH 30 ML CUP PO PRN; +METOPROLOL TARTRATE 25 MG TAB PO SCH; +MIDAZOLAM 2 MG/2 ML VIAL IV ONE; +PANTOPRAZOLE 40 MG TABLET PO SCH; +RX INFO: IV CONTRAST WAS GIVEN 1 EACH MISC MISCELLANE PRN; +SODIUM CHLORIDE 0.9% 1,000 ML IV SCH; +VENLAFAXINE HCL ER 75 MG CAP PO SCH; +VERAPAMIL 2.5 MG/ML 2 ML AMP ONE; +VERAPAMIL SYRINGE (5 MG/10 ML) INTRAARTER ONE; +ZOLPIDEM 5 MG TAB PO PRN
[2019-06-09 06:58] LABS: Basophils % (A) 1 %; Eosinophils # (A) 0.2 k/uL (0-0.7); Eosinophils % (A) 5 %; HCT 40.9 % (39.0-53.0); HGB 13.9 gm/dL (13.0-17.5); Lymphocytes # (A) 1.2 k/uL (1.0-4.8); Lymphocytes % (A) 26 %; MCH 31.3 pg (25.0-35.0); MCHC 33.9 g/dL (31.0-37.0); MCV 92.4 fL (80.0-100.0); Mean Platelet Volume 7.8; Monocytes # (A) 0.3 k/uL (0-1.0); Monocytes % (A) 7 %; Neutrophils # (A) 2.8 k/uL (1.3-7.7); Neutrophils % (A) 59 %; Platelet Count 237 k/uL (150-450); RBC 4.43 m/uL (4.30-5.90); RDW 13.9 % (11.5-15.5); WBC 4.8 k/uL (3.8-10.6)
[2019-06-09 07:06] LABS: Glucose,Whole Blood 109 mg/dL (75-99)
[2019-06-09 07:07] VITALS: RESP 18; TEMP 98
[2019-06-09 07:18] LABS: Calcium 9.5 mg/dL (8.4-10.2); Potassium 4.5 mmol/L (3.5-5.1)
[2019-06-09] MEDS: NITROGLYCERIN 1000MCG/10ML SYRINGE INTRACORON ONE ×2 (08:01→08:19)
--- NOTE | 2019-06-09 08:37 | P.PCN ---
Date of Procedure: 06/09/19 Operative Findings: PERCUTANEOUS CORONARY INTERVENTION Performing physician Kareem Jones MD, RPVI Procedure performed Successful stenting of the proximal LCX using 2.75 x 15 mm Xience DORIE with an excellent angiographic results and reduction of stenosis from 95% to 0% Indication This is a 68-year-old gentleman was coronary artery disease as well as hypertension and dyslipidemia who was experiencing symptoms of chest discomfort and underwent myocardial perfusion imaging stress test and that revealed reversible defects. He underwent a heart catheterization after that and that revealed severe disease involving the RCA which was stented as well as critical disease involving the LCx. He was brought today to undergo a PCI of the LCx Approach Right radial artery Complication None Level of sedation Moderate with sedation length of 32 minutes Procedure description After obtaining an informed consent the patient was brought to the cardiac hemodialysis lab technician. The right radial artery was cannulated using micropuncture technique, the micropuncture wire passed easily then I placed a 6-Polish sheath. Anticoagulation was initiated using Angiomax with bolus and drip per protocol. I did engage the left main using a JL 3.5 guide. I did wire the LCx using a whisper wire. Balloon angioplasty was performed using 2.5 x 12 mm balloon were the balloon was inflated under 14 abhi for 20 seconds. Attempting advancing 2.75 x 15 mm Xience DORIE was unsuccessful because of the tortuosity of the LCx. I did wire the LCx using at that point a maciej wire with a run-through wire. I tried again advancing the stent over the whisper wire as well as a run-through wire and that was unsuccessful. At that point I decided to do balloon angioplasty again using 2.5 x 12 mm noncompliant balloon which was inflated under 16 abhi for 20 seconds. After that I was able to advance the stent over the whisper wire into the proximal LCx where the stent was positioned under fluoroscopy guidance and deployed under 18 abhi for 25 seconds. The stent was deployed after I pulled the maciej wire out. The final angiogram showed excellent angiographic results and the procedure was completed without any complication Postprocedure management 1. Dual antiplatelet therapy 2. Risk factors modification 3. The patient want to go home today. We'll discharge the patient later on today if no complication happened.
[2019-06-09 12:08] VITALS: BP 106/58; PULSE 54
== END ==
LOC: CATHCVL 06:30
PROVIDERS: ATTEND Internal Medicine Interventional Cardiology
DX: I25.10 Atherosclerotic heart disease of native coronary artery without angina pectoris (principal); I10 Essential (primary) hypertension; E78.5 Hyperlipidemia, unspecified; E11.9 Type 2 diabetes mellitus without complications; F17.210 Nicotine dependence, cigarettes, uncomplicated; E66.9 Obesity, unspecified; Z79.82 Long term (current) use of aspirin; Z79.84 Long term (current) use of oral hypoglycemic drugs; Z79.899 Other long term (current) drug therapy; Z79.02 Long term (current) use of antithrombotics/antiplatelets; Z88.5 Allergy status to narcotic agent; Z88.6 Allergy status to analgesic agent; Z68.35 Body mass index [BMI] 35.0-35.9, adult
CPT/HCPCS: 80048; 85025; 87635; C9600; C1769 ×2; C1887; C1725 ×2; C1894; C1874; J2250; J2001; J0583; Q9967

== ENCOUNTER → 2019-08-07 | Outpatient (CLI) | payer MEDICARE, BC ==
--- NOTE | 2019-08-07 16:04 | XR ---
EXAMINATION TYPE: XR lumbar spine 2 or 3V DATE OF EXAM: 08/07/2019 COMPARISON: 06/17/2015, CT abdomen pelvis 11/18/2018 HISTORY: Pain TECHNIQUE: Three-view lumbar spine FINDINGS: There 5 lumbar-type vertebral bodies. The pedicles are intact. Spondylosis is present. Dege nerative disc changes are present L5-S1 and posteriorly L3-4 and L4-5. Some diffuse disc space narrow ing is present L1-L2. Vertebral body heights are preserved. Vascular calcification is noted within the aorta. This is prominent measuring up to 3.9 cm. Consider additional workup with ultrasound. IMPRESSION: 1. Degenerative disc changes upper and lower lumbar spine. 2. Fusiform prominence of the abdominal aorta closer evaluation with ultrasound is recommended.
== END | disposition home or self-care (01) ==
LOC: RADXRMAIN 14:20
PROVIDERS: ATTEND Nurse Practitioner Family
DX: M51.36 Other intervertebral disc degeneration, lumbar region (principal)
CPT/HCPCS: 72100

== ENCOUNTER → 2019-09-28 | Outpatient (CLI) | payer MEDICARE, BC ==
--- NOTE | 2019-09-28 22:19 | US ---
EXAMINATION TYPE: US thyroid st tissue head/neck DATE OF EXAM: 09/28/2019 COMPARISON: US 09/22/2018 CLINICAL HISTORY: 68-year-old male E04.2 multinodular thyroid. TECHNIQUE: Multiple sonographic images of the thyroid gland are obtained. FINDINGS: GLAND SIZE: Right Lobe: 5.2 x 2.5 x 1.8 cm Overall Parenchyma: heterogenous Left Lobe: 4.8 x 1.3 x 1.8 cm Overall Parenchyma: heterogeneous Isthmus Thickness: 0.4 cm NODULES RIGHT: # of nodules measured on right: 1 1. 0.6 X 0.6 x 0.6 cm echogenic solid nodule at the mid pole with well-defined margins. This nodul e is wider than tall and shows no intranodular vascularity. Prior size: 0.7 x 0.8 x 0.7 cm LEFT: # of nodules measured on left: 1 1. 0.5 X 0.4 x 0.3 cm cyst at the upper pole with well-defined margins. Prior size: 0.4 x 0.4 x 0.4 cm ISTHMUS: # of nodules measured in the isthmus: 0 Bilateral neck scanned, no evidence of lymphadenopathy. IMPRESSION: Borderline thyromegaly with a stable small 6 mm echogenic solid nodule at the right midpole and a brittani ign 5 mm cyst on the left.
== END | disposition home or self-care (01) ==
LOC: RADUSWWP 14:15
PROVIDERS: ATTEND Surgery
DX: E04.2 Nontoxic multinodular goiter (principal)
CPT/HCPCS: 76536

== ENCOUNTER → 2020-02-19 | Outpatient (CLI) | payer MEDICARE, BC | END | disposition home or self-care (01) | LOC: RADMRIMAIN 12:51 | PROVIDERS: ATTEND Orthopaedic Surgery Orthopaedic Surgery of the Spine | DX: Z53.9 Procedure and treatment not carried out, unspecified reason (principal) ==

== ENCOUNTER → 2020-02-24 | Outpatient (CLI) | payer MEDICARE, BC ==
--- NOTE | 2020-02-24 12:48 | CT ---
EXAMINATION TYPE: CT abdomen pelvis w con DATE OF EXAM: 02/24/2020 COMPARISON: CT abdomen pelvis November 2018 HISTORY: LLQ pain CT DLP: 2648.3 mGycm, Automated Exposure Control for Dose Reduction was Utilized. CONTRAST: CT scan of the abdomen and pelvis is performed with oral and with IV Contrast, patient injected with 100 mL of Isovue 300. FINDINGS: LUNG BASES: There is partial visualization of three-vessel coronary artery calcification and/or stent s most prominent in the RCA distribution. LIVER/GB: No significant abnormality is appreciated. PANCREAS: Mild generalized replaced atrophy redemonstrated. SPLEEN: No significant abnormality is seen. ADRENALS: No significant abnormality is seen. KIDNEYS: Partially exophytic 5.4 cm thin-walled cyst posteriorly upper to mid pole left kidney redemo nstrated. There is a larger lobulated partially exophytic thin-walled cyst anteriorly mid to lower po le level right kidney measuring 9.3 cm long axis axial image 47. Symmetric cortical medullary uptake and excretion without hydronephrosis identified currently. BOWEL: Oral contrast does not reach level terminal ileum making evaluation of distal bowel suboptimal . No suspicious small or large bowel dilatation is present. There is redundant sigmoid colon without diverticulosis or CT evidence for acute diverticulitis PROSTATE/SEMINAL VESICLES: Left-sided pelvic phlebolith. Normal-sized prostate. LYMPH NODES: No greater than 1cm abdominal or pelvic lymph nodes are appreciated. OSSEOUS STRUCTURES: Spine is straightened with moderate multilevel spurring. OTHER: Moderate calcified plaque of the abdominal aorta extends into branch vessels. IMPRESSION: No significant acute finding is seen to account for patient's clinical symptoms. No CT e vidence for significant diverticulosis or acute diverticulitis.
== END | disposition home or self-care (01) ==
LOC: RADCTMAIN 10:31
PROVIDERS: ATTEND Family Medicine
DX: R10.32 Left lower quadrant pain (principal); Z01.812 Encounter for preprocedural laboratory examination
CPT/HCPCS: 82565; 84520; 74177; 36415; Q9967

== ENCOUNTER → 2020-04-06 | Outpatient (CLI) | payer MEDICARE, BC ==
[2020-04-06 13:33] VITALS: BP 132/81; PULSE 55; RESP 16; TEMP 98.6
--- NOTE | 2020-04-06 14:00 | P.PAINCN ---
History of Present Illness - Reason for Consult Consult date: 04/06/20 - History of Present Illness This is 69 years old male with a chronic history of severe neck pain, started March 2019, and the pain is localized in the left side of the cervical area with radiation to the left shoulder blade, he denies any initiating event, and he reported that the intensity of the pain increased over time, the patient had cervical fusion surgery done in 4 years ago and he did very well, until recentl y, the pain in the cervical area is constant increased with any neck movement, he denies any numbness or tingling sensation in the upper extremity, he denies any motor or sensory deficit, he denies any fever or night sweats, currently is using Flexeril 10 mg daily at bedtime and Motrin 800 mg every 8 hours when necessary, and he reported that this medication given minimal relief Past Medical History Past Medical History: Coronary Artery Disease (CAD), Cancer, Chest Pain / Angina, Diabetes Mellitus, GERD/Reflux, Hyperlipidemia, Hypertension, Myocardial Infarction ([place]), Musculoskeletal Disorder, Osteoarthritis (OA), Rheumatoid Arthritis (RA), Sleep Apnea/CPAP/BIPAP Additional Past Medical History / Comment(s): Kidney stone, prostate CA with radiation 2016, CHRONIC PAIN, RS3PE (polyarthritis), DDD, cervical stenosis, upper extremity radiculopathy, stroke behind RT EYE, no c-pap (unsure if he has sleep apnea still) Last Myocardial Infarction Date:: unknown History of Any Multi-Drug Resistant Organisms: None Reported Past Surgical History: Ear Surgery, Heart Catheterization With Stent, Hernia Repair, Joint Replacement, Orthopedic Surgery Additional Past Surgical History / Comment(s): 01/10/15 anterior cervical decompression/fusion, 2005 CARDIAC STENT X1, RT KNEE REPLACEMENT, UVULectomy, RT EAR SURGERY, UMBILICAL HERNIA REPAIR, R eye injections for occular stroke tx, colonoscopy, heart cath with stent (2005 x1 and 05/19/19 x2 stents. Past Anesthesia/Blood Transfusion Reactions: Previous Problems w/ Anesthesia Additional Past Anesthesia/Blood Transfusion Reaction / Comm: TAKES AWHILE TO WAKE UP Date of Last Stent Placement:: 05/2019 Past Psychological History: Anxiety, Depression Additional Psychological History / Comment(s): .. Smoking Status: Former smoker Past Alcohol Use History: Rare Additional Past Alcohol Use History / Comment(s): STARTED SMOKING AT AGE 16 QUIT SMOKING 1977, SMOKED 1PPD Past Drug Use History: None Reported - Past Family History Mother History Unknown: Yes Family Medical History: Unable to Obtain Father History Unknown: Yes Additional Family Medical History / Comment(s): Pt has not spoken to his mother or father in 30 yrs. Medications and Allergies Home Medications Medication Instructions Recorded Confirmed Type Aspirin EC [Ecotrin Low Dose] 81 mg PO DAILY 12/28/14 03/30/20 History Metoprolol Tartrate 25 mg PO QAM 12/28/14 03/30/20 History Atorvastatin [Lipitor] 80 mg PO DAILY 03/22/16 03/30/20 History Venlafaxine HCl ER [Effexor XR] 37.5 mg PO DAILY 07/10/18 03/30/20 History Omeprazole 20 mg PO DAILY 11/18/18 03/30/20 History Ibuprofen 800 mg PO Q8H PRN 05/15/19 03/30/20 History Clopidogrel [Plavix] 75 mg PO DAILY #90 tab 05/20/19 03/30/20 Rx Isosorbide Mononitrate ER [Imdur] 30 mg PO DAILY 06/03/19 03/30/20 History metFORMIN HCL [Glucophage] 1,000 mg PO BID 06/03/19 03/30/20 History Cyclobenzaprine [Flexeril] 10 mg PO HS PRN 03/30/20 03/30/20 History Allergies Allergy/AdvReac Type Severity Reaction Status Date / Time hydrocodone bitartrate AdvReac AGITATION,CAN Verified 03/30/20 16:03 [From Vicodin] TAKE NORCO AND TYLENOL Physical Exam Vitals: Vital Signs Temp Pulse Resp BP Pulse Ox 04/06/20 13:29 98.6 F 55 L 16 132/81 97 Physical Examinations : -Constitutiona : Cooperative , not in acute distress . -HEENT : nech : supple , no Lymphadenopathy , normal thyroid size . : eyes : no ptosis , no icterus, no betty tophobia . - neurologic : Cranial nerve II to XII intact , no focal neurological deffecit . -psychatric : alert , oriented X 3 , appropriate affect , intact judgment and insight . -Lymphatic : no Lymphadenopathy . - musculoskeltal : Cervical Spine motor stregnth in the deltoid and biceps, normal right side , normal Left side motor stregnth biceps and the wrist extensors normal right side ,normal left side . motor stregnth in the triceps muscle . normal Right side , normal Left side deep tendon reflexes normal at the biceps , normal at Brachioradialis , normal at triceps. cervical facet loading test: Positive left side Spurling test= positive left. Neck distraction test= positive left. Sb sign= positive left . Left shoulder joint= full Range of motion, no tenderness no effusion, no restriction to active and passive movement Lumber spine moter stegnth lower extremities ,thigh and legs 5/5 Right side , 5/5 Left side Results Comments: MRI of the cervical spine= C4 to C7 cervical fusion, C5 6 left paracentral endplate spurring Assessment and Plan Plan: Assessment and plan=1-cervical degenerative disc disease. 2-cervical spondylosis with cervical facet arthropathy. Patient could benefit from cervical epidural steroid injection at C7-T1 left paramedial approach Patient had to hold Plavix for 1 week before the procedure. We need to get approval from the senior operations analyst before we hold Plavix Time with Patient: Greater than 30 PQRS Measure Charge Sheet Measure #130: Documentation of Current Meds in Medical Chart: Patient's medications documented in chart Measure #226: Tobacco Use: Screen & Cessation Intervention: Pt not a tobacco user Measure #111: Pneumonia Vaccination: Pneumococcal vaccine administered or previously received Measure #47: Advance Care Plan: Advance care planning discussed & documented, pt chose/unable to give Measure #412: Opioid Treatment Agreement: No documentation of signed opioid treatment agreement Measure #408: Opioid Therapy Follow-up Evaluation: Patient had NO f/u eval minimum every 3 months during opioid therapy Measure #317: Preventitive Care & Scrn High Bld Press & F/U: Normal blood pressure, f/u not required Measure #128: Body Mass Index (BMI) Screening & Follow-up: BMI documented ABOVE normal parameters - f/u documented Measure #131: Pain Assessment & Follow-up: Pain positive & plan documented, Follow-up scheduled Measure #431: Unhealthy Alcohol Use Preventative Care & Scrn: Patient not identified as an unhealthy alcohol user PQRS Narrative: Smoking Status Former smoker Blood Pressure 132/81 Pain Intensity [Neck] 4 Scale Used Numeric (1 - 10) Hx Alcohol Use ([facility]) No Home Medications: Ambulatory Orders Aspirin EC [Ecotrin Low Dose] 81 mg PO DAILY 12/28/14 Metoprolol Tartrate 25 mg PO QAM 12/28/14 Atorvastatin [Lipitor] 80 mg PO DAILY 03/22/16 Venlafaxine HCl ER [Effexor XR] 37.5 mg PO DAILY 07/10/18 Omeprazole 20 mg PO DAILY 11/18/18 Ibuprofen 800 mg PO Q8H PRN 05/15/19 Clopidogrel [Plavix] 75 mg PO DAILY #90 tab 05/20/19 Isosorbide Mononitrate ER [Imdur] 30 mg PO DAILY 06/03/19 metFORMIN HCL [Glucophage] 1,000 mg PO BID 06/03/19 Cyclobenzaprine [Flexeril] 10 mg PO HS PRN 03/30/20
== END | disposition home or self-care (01) ==
LOC: PNWHC3 13:09
PROVIDERS: ATTEND Specialist
DX: M50.30 Other cervical disc degeneration, unspecified cervical region (principal); M47.812 Spondylosis without myelopathy or radiculopathy, cervical region; E11.9 Type 2 diabetes mellitus without complications; K21.9 Gastro-esophageal reflux disease without esophagitis; R07.9 Chest pain, unspecified; M19.90 Unspecified osteoarthritis, unspecified site; M06.9 Rheumatoid arthritis, unspecified; G47.33 Obstructive sleep apnea (adult) (pediatric); I21.9 Acute myocardial infarction, unspecified; Z98.84 Bariatric surgery status; Z79.84 Long term (current) use of oral hypoglycemic drugs; Z79.899 Other long term (current) drug therapy; Z79.82 Long term (current) use of aspirin; Z79.891 Long term (current) use of opiate analgesic; Z79.01 Long term (current) use of anticoagulants
CPT/HCPCS: 99211

== ENCOUNTER 2020-06-02 11:13 | Day surgery (SDC) | payer MEDICARE, BC ==
[2020-05-30 16:08] VITALS: BMI 37.8
[~2020-06-02 11:13] MED LIST changes: -ACETAMINOPHEN TAB 500 MG TAB PO PRN; -ALPRAZolam 0.25 MG TAB PO PRN; -ALPRAZolam 0.5 MG TAB PO PRN; -ASPIRIN 325 MG TAB PO ONE; -ASPIRIN 81 MG PO SCH; -ATORVASTATIN 80 MG TAB PO ONE; -ATORVASTATIN 80 MG TAB PO SCH; -ATROPINE SULFATE 0.1 MG/ML 10ML SYRINGE IV PRN; -BIVALIRUDIN 250 MG in SODIUM CHLORIDE 0.9% 50 ML IV ONE; -BIVALIRUDIN BOLUS 250 MG/50 ML IV ONE; -CLOPIDOGREL 75 MG TAB ONE; -CLOPIDOGREL 75 MG TAB PO ONE; -CLOPIDOGREL 75 MG TAB PO SCH; -HYDROXYCHLOROQUINE SULFATE 200 MG TAB PO SCH; -IBUPROFEN 800 MG TAB PO PRN; -IOPAMIDOL-370 125ML BTL INJ ONE; -ISOSORBIDE MONONITRATE ER 60 MG TAB.ER.24H PO SCH; +LACTATED RINGERS 1,000 ML IV SCH; -LIDOCAINE 1% INJ 10MG/ML (20 ML MDV) ONE; -LIDOCAINE 1% INJ 10MG/ML (20 ML MDV) SQ ONE; -MAG HYDROX/AL HYDROX/SIMETH 30 ML CUP PO PRN; -METOPROLOL TARTRATE 25 MG TAB PO SCH; -MIDAZOLAM 2 MG/2 ML VIAL IV ONE; -NITROGLYCERIN SL TABS 0.4 MG TAB SUBLINGUAL PRN; -PANTOPRAZOLE 40 MG TABLET PO SCH; -RX INFO: IV CONTRAST WAS GIVEN 1 EACH MISC MISCELLANE PRN; -SODIUM CHLORIDE 0.9% 1,000 ML IV SCH; -SODIUM CHLORIDE 0.9% 1,000 ML in EMPTY BAG 1 BAG IV ONE; -VENLAFAXINE HCL ER 75 MG CAP PO SCH; -VERAPAMIL 2.5 MG/ML 2 ML AMP ONE; -VERAPAMIL SYRINGE (5 MG/10 ML) INTRAARTER ONE; -ZOLPIDEM 5 MG TAB PO PRN
[2020-06-02 11:38] VITALS: RESP 16; TEMP 98.2
[2020-06-02 11:49] LABS: Glucose,Whole Blood 138 mg/dL (75-99)
[2020-06-02] MEDS ORDERED: IOPAMIDOL M200 10 ML VIAL ONE (11:57)
[2020-06-02] MEDS ORDERED: DEXAMETHASONE SOD PHOSPHATE 10 MG/ML 1 ML VIAL ONE (11:57)
--- NOTE | 2020-06-02 12:09 | P.PCN ---
Date of Procedure: 06/02/20 Procedure(s) Performed: . PROCEDURE 1. Cervical epidural steroid injection under fluoroscopic guidance, C7-T1 (fluoroscopy images available in the radiology department ) 2. Cervical epidurogram. PREOPERATIVE DIAGNOSIS: 1- Cervical Degenerative Disc Diseases 2-cervical spondylosis with cervical Facet arthropathy without myelopathy POSTOPERATIVE DIAGNOSIS: : 1- Cervical Degenerative Disc Diseases , 2-cervical spondylosis with cervical Facet arthropathy without myelopathy ANESTHESIA: Local anesthesia with lidocaine 1 % 3 ml only. EBL 0 PROCEDURE INDICATION: The patient with neck pain and radiculitis unresponsive to conservative treatment consents for procedure. PROCEDURE DESCRIPTION / TECHNIQUE: The patient was seen and identified in the preoperative area. Risks, benefits, complications, including but not limited to infections ,bleeding , allergic reactions to the medications ,and not complete pain releife, and alternatives were discussed with the patient, the patient agreed to proceed with the procedure and signed the consent. Patient was taken to the OR and time out was completed. The patient was placed in the prone position on the procedure table. A pillow was placed under the patients chest to increase the cervical interlaminar space. The cervical area was prepped and draped in the usual sterile fashion. Vital signs were closely monitored during the procedure. Using anterior-posterior fluoroscopy, the C7-T1 interlaminar space was identified and the skin over this site was marked and then infiltrated with 1% lidocaine subcutaneously. Subsequently, a 20-gauge 3-1/2-inch Tuohy epidural needle was inserted and advanced toward the epidural space by means of the `` hanging-drop technique and guided by AP and lateral fluoroscopy. The correct needle position in the epidural space was verified with the injection of 2 mL of the water soluble contrast dye Isovue-200 and observing an excellent epidurogram with the epidural spread of the dye, after negative aspiration for blood and CSF and in the absence of paresthesias. then , mixture containing 15 mg Dexamethasone and 2 ml of preservative-free normal saline injected and a washout of epidurogram was seen. Needle was withdrawn intact, skin was cleansed, and bandages were applied. Complications= none. Disposition= patient was placed in supine position and transferred to the recovery room area in stable condition and there was no evidence of upper or lower extremity motor or sensory deficit after the procedure patient was discharged from recovery room after discharge criteria met and home discharge instructions was given by the staff and patient will follow with the pain clinic in 2-4 weeks
[2020-06-02 12:31] VITALS: BP 122/85; PULSE 52
--- NOTE | 2020-06-02 12:55 | FL ---
EXAMINATION TYPE: FL guided pain mgmt statistic DATE OF EXAM: 06/02/2020 CLINICAL HISTORY: Neck pain. TECHNIQUE: Fluoroscopy. COMPARISON: None. FINDINGS: Fluoroscopic guidance was provided during pain relief procedure performed by Dr. Colin . A total of 3 seconds of fluoroscopic time was utilized during the procedure and two spot images ar e acquired. Images acquired shows needle localization near cervicothoracic junction, there is a 4 le justyna anterior fusion plate noted just above this. IMPRESSION: As Above.
== END 2020-06-02 12:38 | disposition home or self-care (01) ==
LOC: ORPAIN 11:13
PROVIDERS: ATTEND Specialist
DX: M50.30 Other cervical disc degeneration, unspecified cervical region (principal); M47.812 Spondylosis without myelopathy or radiculopathy, cervical region; I25.10 Atherosclerotic heart disease of native coronary artery without angina pectoris; Z79.02 Long term (current) use of antithrombotics/antiplatelets
CPT/HCPCS: 62321; J1100; Q9966

== ENCOUNTER 2020-06-28 11:23 | Day surgery (SDC) | payer MEDICARE, BC ==
[2020-06-28 11:37] VITALS: TEMP 97
[2020-06-28 11:39] LABS: Glucose,Whole Blood 143 mg/dL (75-99)
[2020-06-28] MEDS ORDERED: DEXAMETHASONE SOD PHOSPHATE 10 MG/ML 1 ML VIAL ONE (11:55)
[2020-06-28] MEDS ORDERED: IOPAMIDOL M200 10 ML VIAL ONE (11:55)
--- NOTE | 2020-06-28 12:08 | P.PCN ---
Date of Procedure: 06/28/20 Surgeon: Pk New Pathology: none sent Condition: stable Disposition: PACU Description of Procedure: PROCEDURE 1. Cervical epidural steroid injection under fluoroscopic guidance, C7-T1 left paramedian approach. 2. Cervical epidurogram. : PREOPERATIVE DIAGNOSIS: Cervical post-fusion pain syndrome, cervical degenerative disc disease POSTOPERATIVE DIAGNOSIS: : Same as above ANESTHESIA: Local only anesthesia with 1% lidocaine EBL 0 PROCEDURE INDICATION: The patient with neck pain and radiculopathy unresponsive to conservative treatment consents for procedure. PROCEDURE DESCRIPTION / TECHNIQUE: The patient was seen and identified in the preoperative area. Risks, benefits, complications, including but not limited to infections ,bleeding , allergic reactions to the medications ,and not complete pain relief, and alternatives were discussed with the patient, the patient agreed to proceed with the procedure and signed the consent. The patient stopped his Plavix for 7 days ago and his aspirin yesterday. Patient was taken to the OR and time out was completed. The patient was placed in the prone position on the procedure table. A pillow was placed under the patients chest to increase the flexion of the cervical spine . The cervical area was prepped and draped in the usual sterile fashion. Vital signs were closely monitored during the procedure. Conscious sedation was used during the procedure to decrease patients anxiety. Using anterior-posterior fluoroscopy, the C7-T1 interlaminar space was identified and the skin over this site was marked and then infiltrated with 1% lidocaine subcutaneously. Subsequently, a 20-gauge 3-1/2-inch Tuohy epidural needle was inserted and advanced toward the epidural space by means of loss of resistance to air technique and guided by AP and lateral fluoroscopy. The needle tip contacted the lamina of T1 vertebra first, then it was walked off bone and into the epidural space using the loss of to air and fluoroscopic guidance to identify the epidural space. The correct needle position in the epidural space was verified with the injection of 1 mL of the water soluble contrast dye Isovue and observing an excellent epidurogram with the epidural spread of the dye, after negative aspiration for blood and CSF and in the absence of paresthesias. Again after negative aspiration, a 3 ml mixture containing 10 mg of Decadron and 1 ml of preservative free Normal Saline solution was injected and a washout of epidurogram was seen. Needle was withdrawn intact, skin was cleansed, and bandages were applied. A copy of the needle placement picture was saved to the fluoroscopy machine.
--- NOTE | 2020-06-28 12:23 | FL ---
EXAMINATION TYPE: FL guided pain mgmt statistic DATE OF EXAM: 06/28/2020 CLINICAL HISTORY: Neck pain. TECHNIQUE: Fluoroscopy. COMPARISON: None. FINDINGS: Fluoroscopic guidance was provided during pain relief procedure performed by Dr. New . A total of 3 seconds of fluoroscopic time was utilized during the procedure and 1 spot images are a cquired. Single limited acquired shows needle localization at upper thoracic spine level. IMPRESSION: As Above.
[2020-06-28 12:29] VITALS: BP 120/79; PULSE 78; RESP 18
== END 2020-06-28 12:36 | disposition home or self-care (01) ==
LOC: ORPAIN 11:23
PROVIDERS: ATTEND Anesthesiology
DX: G89.18 Other acute postprocedural pain (principal); M50.10 Cervical disc disorder with radiculopathy, unspecified cervical region; E11.9 Type 2 diabetes mellitus without complications; I25.10 Atherosclerotic heart disease of native coronary artery without angina pectoris; Z79.02 Long term (current) use of antithrombotics/antiplatelets; Z79.82 Long term (current) use of aspirin; Z88.5 Allergy status to narcotic agent
CPT/HCPCS: 62321; J1100; Q9966

== ENCOUNTER → 2020-08-08 | Outpatient (CLI) | payer MEDICARE, BC ==
[2020-08-08 14:09] VITALS: BP 124/80; PULSE 60; RESP 18; TEMP 98.2
--- NOTE | 2020-08-08 14:28 | P.PN ---
Subjective Progress Note Date: 08/08/20 This is follow-up visit for this 69 years old male with a chronic history of severe neck pain, he is diagnosed with cervical degenerative disc disease and cervical spondylosis and cervical facet arthropathy, patient had cervical fusion at C4 to C7 ,recently we have done cervical epidural steroid injections 2, and he reported that his pain improved by 50% after the second injection the pain in the cervical area is constant increased with any neck movement, he denies any numbness or tingling sensation in the upper extremity, he denies any motor or sensory deficit, he denies any fever or night sweats, currently is using Flexeril 10 mg daily at bedtime and Motrin 800 mg every 8 hours when necessary, and he reported that this medication given minimal relief Physical Examinations : -Constitutiona : Cooperative , not in acute distress . -HEENT : nech : supple , no Lymphadenopathy , normal thyroid size . : eyes : no ptosis , no icterus, no photophobia . - neurologic : Cranial nerve II to XII intact , no focal neurological deffecit . -psychatric : alert , oriented X 3 , appropriate affect , intact judgment and insight . -Lymphatic : no Lymphadenopathy . - musculoskeltal : Cervical Spine motor stregnth in the deltoid and biceps, normal right side , normal Left side motor stregnth biceps and the wrist extensors normal right side ,normal left side . motor stregnth in the triceps muscle . normal Right side , normal Left side deep tendon reflexes normal at the biceps , normal at Brachioradialis , normal at triceps. cervical facet loading test: Positive left side Spurling test= positive left. Neck distraction test= positive left. Sb sign= positive left . Left shoulder joint= full Range of motion, no tenderness no effusion, no restriction to active and passive movement Lumber spine moter stegnth lower extremities ,thigh and legs 5/5 Right side , 5/5 Left side Results MRI of the cervical spine= C4 to C7 cervical fusion, C5 6 left paracentral endplate spurring Assessment and plan= 1-cervical degenerative disc disease. 2-cervical spondylosis with cervical facet arth ropathy. Pain improved after cervical epidural steroid injectionx2 In the future if patient had severe neck pain and he will be good candidate to have left side medial branch block at C2 ,C3 ,C4 And possible RFA PQRS Measure Charge Sheet Measure #130: Documentation of Current Meds in Medical Chart: Patient's medications documented in chart Measure #226: Tobacco Use: Screen & Cessation Intervention: Pt not a tobacco user Measure #111: Pneumonia Vaccination: Pneumococcal vaccine administered or previously received Measure #47: Advance Care Plan: Advance care planning discussed & documented, pt chose/unable to give Measure #412: Opioid Treatment Agreement: No documentation of signed opioid treatment agreement Measure #408: Opioid Therapy Follow-up Evaluation: Patient had NO f/u eval minimum every 3 months during opioid therapy Measure #317: Preventitive Care & Scrn High Bld Press & F/U: Normal blood pres sure, f/u not required Measure #128: Body Mass Index (BMI) Screening & Follow-up: BMI documented ABOVE normal parameters - f/u documented Measure #131: Pain Assessment & Follow-up: Pain positive & plan documented, Follow-up scheduled Measure #431: Unhealthy Alcohol Use Preventative Care & Scrn: Patient not identified as an unhealthy alcohol user PQRS Narrative: Objective - Vital Signs Vital signs: Vital Signs Temp 98.2 F 08/08/20 14:07 Pulse 60 08/08/20 14:07 Resp 18 08/08/20 14:07 BP 124/80 08/08/20 14:07 Pulse Ox 97 08/08/20 14:07
== END ==
LOC: PNWHC3 13:37
PROVIDERS: ATTEND Specialist
DX: M50.30 Other cervical disc degeneration, unspecified cervical region (principal); M47.812 Spondylosis without myelopathy or radiculopathy, cervical region; Z88.5 Allergy status to narcotic agent; Z87.891 Personal history of nicotine dependence
CPT/HCPCS: 99211

== ENCOUNTER → 2020-09-02 | Day surgery (SDC) | payer MEDICARE, BC ==
[2020-09-01 09:25] VITALS: BMI 35.9
[~2020-09-02] MED LIST changes: +IOPAMIDOL M200 10 ML VIAL ONE; +IV FLUID CONTINUATION 700 ML IV ONE; +LACTATED RINGERS 1,000 ML IV ONE; -LACTATED RINGERS 1,000 ML IV SCH; +MIDAZOLAM 2 MG/2 ML VIAL ONE; +ROPIVACAINE 5MG/ML 20ML VIAL ONE
[2020-09-02 11:58] LABS: Glucose,Whole Blood 110 mg/dL (75-99)
[2020-09-02 12:00] VITALS: TEMP 96.7
--- NOTE | 2020-09-02 12:17 | P.PCN ---
Date of Procedure: 09/02/20 Description of Procedure: PREOPERATIVE DIAGNOSIS : Cervicalgia with Facet Arthropathy without myelopathy POSTOPERATIVE DIAGNOSIS: same PROCEDURE: first Diagnostic cervical medial branch block with fluoroscopy at TON, C3, C4 left which covers facets C2-C3 and C3-C4 ANESTHESIA: Local anesthetic; moderate IV sedation with anesthesia team Fluoroscopy was used for the procedure and images were saved in the radiology portion of the chart. Surgeon: Dusty Oneal MD PROCEDURE INDICATION: Cervical pain without radiculopathy, not responsive to conservative management. PROCEDURE DESCRIPTION: the patient was seen and identified in the preop holding area , risks and benefits and possible complications of the procedure and alternatives were discussed with the patient, and the patient agreed to proceed with the procedure and signed the consent . IV was started , vital signs were monitored during the procedure and fluoroscopy was used to maximize the benefit and accuracy of the needle placement, and sedation was given to decrease patient anxiety. Patient was taken to the procedure room and placed in prone position. An AP fluoroscopic assistant professor of criminal justice film was taken to identify the dens, the C2, C3, C4 vertebral bodies, and the waists of the articular pillars at the aforementioned levels. A lateral view was utilized to highlight the waists of the articular pillars at these levels. The skin was prepped with chlorhexidine and draped in the usual sterile fashion. The skin and subcutaneous tissue overlying the above levels were anesthetized using a 25-gauge 1-1/2-inch needle with 1% preservative free lidocaine for a total volume of 1 ml per level. An AP fluoroscopic assistant professor of criminal justice film was taken to identify the dens, the C2 C3 C4 vertebral bodies, and the center of the centroid at the aforementioned levels. A lateral view was utilized to highlight the centroids at these levels. The skin was prepped with chlorhexidine and draped in the usual sterile fashion. The skin and subcutaneous tissue overlying the above levels were anesthetized using a 25- gauge 1-1/2-inch needle with 1% preservative free lidocaine for a total volume of 1 ml per level. An 25-gauge 3.5" Quinke needle was advanced, coaxially, in the lateral view until the needle tip was noted to slide into the center of the centroid. The needles were advanced until bony contact was felt and the tip of the Quinke needle was confirmed to be in the center of the articular pillars at the aforementioned levels. The needle positions were confirmed with AP and lateral fluoroscopic views. 0.2 mL of Isovue 200 per level was injected which revealed no vascular uptake and after negative aspiration, 0.5 mL of ropivacaine along with Kenalog 40 mg was injected at each level and the needle subsequently removed . Total of 40 mg kenalog used. At the end of the procedure and the needles were removed and a bandage applied after the skin was cleaned. The patient was taken to recovery room in stable condition and monitors in the recovery room for 20-30 minutes and discharged home in stable condition after discharge criteria met and patient will follow up for repeat procedure in 2-4 weeks EBL: Minimal COMPLICATION: None.
[2020-09-02 12:23] VITALS: RESP 17
[2020-09-02 12:37] VITALS: BP 148/84; PULSE 60
--- NOTE | 2020-09-02 15:28 | FL ---
Fluoroscopy HISTORY: Pain 16 seconds fluoroscopy time supplied to the referring clinician. 2 intraoperative C-arm images docum ent the procedure. See dictated report from anesthesia.
== END ==
LOC: ORPAIN 11:22
PROVIDERS: ATTEND Anesthesiology
DX: M54.2 Cervicalgia (principal); I10 Essential (primary) hypertension; I25.10 Atherosclerotic heart disease of native coronary artery without angina pectoris; I25.2 Old myocardial infarction; G47.33 Obstructive sleep apnea (adult) (pediatric); K21.9 Gastro-esophageal reflux disease without esophagitis; E11.9 Type 2 diabetes mellitus without complications; Z79.84 Long term (current) use of oral hypoglycemic drugs; Z79.82 Long term (current) use of aspirin; Z87.891 Personal history of nicotine dependence; Z95.818 Presence of other cardiac implants and grafts
CPT/HCPCS: 64490; 64491; J2250; Q9966; J2795

== ENCOUNTER → 2020-09-30 | Outpatient (CLI) | payer MEDICARE, BC ==
--- NOTE | 2020-09-30 10:05 | US ---
EXAMINATION TYPE: US thyroid st tissue head/neck DATE OF EXAM: 09/30/2020 COMPARISON: US 2019 CLINICAL HISTORY: E04.1 thyroid nodule. GLAND SIZE: Right Lobe: 3.9 x 1.7 x 1.8 cm Overall Parenchyma: heterogenous Left Lobe: 4.4 x 1.5 x 1.5 cm Overall Parenchyma: heterogeneous Isthmus Thickness: 0.3 cm NODULES RIGHT: # of nodules measured on right: 1 1. 0.6 X 0.6 x 0.6 cm, mid mid, solid or almost completely solid, hyperechoic nodule, which is wide r than tall, with ill-defined margins, without echogenic foci. Prior size: 0.6 x 0.6 x 0.6 cm LEFT: # of nodules measured on left: 1 1. 0.5 X 0.4 x 0.6 cm, upper mid, cystic or almost completely cystic, hypoechoic nodule, which is w ider than tall, with smooth margins, without echogenic foci. Prior size: 0.5 x 0.4 x 0.3 cm ISTHMUS: # of nodules measured in the isthmus: 0 Bilateral neck scanned, no evidence of lymphadenopathy. Slightly small thyroid that is slightly heterogeneous in appearance. Small subcentimeter nodules note d above are unchanged from most recent study. IMPRESSION: As above. No new or enlarging nodules.
== END | disposition home or self-care (01) ==
LOC: RADUSWWP 09:29
PROVIDERS: ATTEND Surgery
DX: E04.1 Nontoxic single thyroid nodule (principal)
CPT/HCPCS: 76536

== ENCOUNTER → 2020-10-07 | Day surgery (SDC) | payer MEDICARE, BC ==
[2020-10-06 11:51] VITALS: BMI 36.1
[~2020-10-07] MED LIST changes: -IOPAMIDOL M200 10 ML VIAL ONE; -IV FLUID CONTINUATION 700 ML IV ONE; -LACTATED RINGERS 1,000 ML IV ONE; +LACTATED RINGERS 1,000 ML IV SCH; +LIDOCAINE 1% (10MG/ML) FOR IV START INTRADERMA PRN; -MIDAZOLAM 2 MG/2 ML VIAL ONE; -ROPIVACAINE 5MG/ML 20ML VIAL ONE
[2020-10-07 11:43] VITALS: BP 149/83; PULSE 65; RESP 20; TEMP 96.8
[2020-10-07 11:56] LABS: Glucose,Whole Blood 143 mg/dL (75-99)
--- NOTE | 2020-10-07 12:41 | P.PN ---
Progress Note - Text Progress Note Date: 10/07/20 This is 69 years old male , scheduled to have left-sided cervical medial branch block at C2, C3 ,and C4, patient in the preop holding area, reported that since the last injection,which was done in 09/02/2020, he had 0 pain, his activity of daily livings improved ,since the last injection, he denies any motor or sensory deficit, and because patient reports he had no pain, I cancelled The Procedure for Today, and Patient Will Follow up in the Pain Clinic When Necessary
== END ==
LOC: ORPAIN 11:25
PROVIDERS: ATTEND Specialist
DX: M47.812 Spondylosis without myelopathy or radiculopathy, cervical region (principal); Z53.8 Procedure and treatment not carried out for other reasons

== ENCOUNTER → 2020-11-02 | Outpatient (CLI) | payer MEDICARE, BC ==
[2020-11-02 11:18] VITALS: BP 147/87; PULSE 55; RESP 18; TEMP 98.3
--- NOTE | 2020-11-02 11:48 | P.PN ---
Subjective Progress Note Date: 11/02/20 This is follow-up visit for this 70 years old male with a chronic history of severe neck pain is diagnosed with cervical spondylosis, the patient had complete resolution of his neck pain after we did diagnostic medial branch block, currently is complaining of severe low back pain which he had it for several years, they still the pain fluctuate over time but currently he reported that the pain is constant in the low back area with radiation to the lower extremity bilaterally is more prominent on the left side, he denies any motor or sensory or sensory deficit, denies any fever or night sweats he denies any change in the bowel movement or urination, reported that the pain associated with numbness and tingling sensation, still the pain interfere with her quality of life and interfere with activity of daily livings, he continued to use Motrin when necessary which is providing him with minimal benefit Objective - Vital Signs Vital signs: Vital Signs Temp 98.3 F 11/02/20 11:14 Pulse 55 L 11/02/20 11:14 Resp 18 11/02/20 11:14 BP 147/87 11/02/20 11:14 Pulse Ox 96 11/02/20 11:14 Intake & Output 11/01/20 11/02/20 11/02/20 18:59 06:59 18:59 Weight 127.006 kg - Exam Physical Examinations : -Constitutiona : Cooperative , not in acute distress . -HEENT : nech : supple , no Lymphadenopathy , normal th yroid size . : eyes : no ptosis , no icterus, no photophobia . - neurologic : Cranial nerve II to XII intact , no focal neurological deffecit . -psychatric : alert , oriented X 3 , appropriate affect , intact judgment and insight . -Lymphatic : no Lymphadenopathy . - musculoskeltal : Lumber spine moter stegnth lower extremities ,thigh and legs 5/5 Right side , 5/5 Left side deep tendon reflexes : normal Knee Jerk , normal ankle Jerk lumber facet Loading Test =positive Right , positive Left Range of motion of the lumbar spine Flexion 30 degrees, extension 10 degrees strait leg raising test = positive at 45 degree Fabere test= positive Right , and positive LT . tenderness over the Sacroiliac joint on the Right , and Left sides . Primary of the lumbar spine done in 2016= multilevel lumbar degenerative disc disease multilevel lumbar spondylosis with lumbar facet arthropathy Assessment and Plan Plan: Assessment and plan=1-neck pain secondary to cervical spondylosis with cervical facet arthropathy Pain improved after medial branch block ( left ). 2-Lumbar degenerative disc disease. 3-lumbar spondylosis with lumbar facet arthropathy without myelopathy. Description could benefit from lumbar epidural steroid injection at L4-L5 level. - PQRS measures = - Patient's medications are documented in the chart. -Tobacco use is negative and counseling.Given. -Patient's has not received pneumococcal vaccine. -Advanced care planning discussed, patient not eligible. -Opiate contract not signed. -Pain positive and follow-up visit/procedure is scheduled. -Patient's blood pressure measured [ 147/87 ] , and documented in the record ,and patient will follow up with the primary care. -Patient's weight was measured and body mass index [35.9 ] above the, normal limits and counseling was done. and patient instructed to follow-up with the primary care physician. -Patient was not identified as an unhealthy alcohol user Time with Patient: Less than 30
== END | disposition home or self-care (01) ==
LOC: PNWHC3 10:58
PROVIDERS: ATTEND Specialist
DX: M47.892 Other spondylosis, cervical region (principal); M46.92 Unspecified inflammatory spondylopathy, cervical region; M51.36 Other intervertebral disc degeneration, lumbar region; M47.896 Other spondylosis, lumbar region; M46.96 Unspecified inflammatory spondylopathy, lumbar region
CPT/HCPCS: 99211

== ENCOUNTER 2020-12-13 11:43 | Day surgery (SDC) | payer MEDICARE, BC ==
[2020-12-13 12:05] VITALS: TEMP 97.8
[2020-12-13 12:05] LABS: Glucose,Whole Blood 132 mg/dL (75-99)
[2020-12-13] MEDS ORDERED: methylPREDNISolone ACETATE 40 MG/ML 1 ML VIAL ONE (12:31)
[2020-12-13] MEDS ORDERED: IOPAMIDOL M200 10 ML VIAL ONE (12:31)
[2020-12-13] MEDS ORDERED: LACTATED RINGERS 1,000 ML IV SCH (12:45)
--- NOTE | 2020-12-13 12:47 | P.OP ---
Postoperative Diagnosis: Lumbar spondylosis, and lumbar radiculopathy Description of Procedure: L4-L5 Epidural steroid injection under fluoroscopic guidance #1/ , 2. Lumbar epidurogram PREOPERATIVE DIAGNOSIS: Lumbar degenerative disc disease, and Lumbar radiculopathy. POSTOPERATIVE DIAGNOSIS: Lumbar degenerative disc disease, and Lumbar radiculopathy. SURGEON: Alayna Alvarado ANESTHESIA: Local with 1% lidocaine, and IV sedation: none EBL: None. Specimen removed: None Fluoroscopic image: saved to electronic medical records PROCEDURE INDICATION: The patient had history of Lumbar degenerative disc disease and Lumbar radiculopathy. Failed to conservative therapy. Presented for epidural steroid injection. PROCEDURE DESCRIPTION: The patient was seen and identified in the preoperative area. Risks, benefits, complications, and alternatives were discussed with the patient. The patient agreed to proceed with the procedure and signed the consent. IV was started, and vital signs were stable. Patient was taken to the procedure area, and time out was completed. The patient was placed in the prone position on procedure table and a pillow was placed under the abdomen to reduce lumbar lordosis. The lumbosacral area was prepped and draped in the usual sterile fashion. Critical pause was taken. Vital signs were closely monitored during the procedure. Using anterior-posterior fluoroscopy, the L4-L5 interlaminar space was identified, and skin and deeper tissues were localized with 1% lidocaine. Using anterior-posterior fluoroscopy, lateral fluoroscopy, and [id number] technique, a 20 gauge 3.5 Tuohy epidural needle entered the epidural space. After negative aspiration of CSF and blood with no paresthesias, 2 ml of [id number] contrast dye was injected and an excellent epidurogram was seen. Again after negative aspiration of CSF and blood with no paresthesias, 10 mL of block solution was injected into the epidural space. Block solution contained 40 mg of Depo-Medrol, and 9 mL of preservative-free normal saline. Needle was withdrawn intact, skin was cleansed, and bandages were applied. COMPLICATIONS: None. DISPOSITION / PLANS: The patient was placed in a supine position and transferred to the recovery area in a stable condition for observation. Patient was discharged from the recovery room after meeting discharge criteria. Home discharge instructions given to the patient by the staff. The patient was reexamined prior to discharge. The patient will schedule a follow up in the clinic in 4 weeks Plan - Discharge Summary New Discharge Prescriptions: No Action Metoprolol Tartrate 25 mg PO QAM Aspirin EC [Ecotrin Low Dose] 81 mg PO DAILY Atorvastatin [Lipitor] 80 mg PO DAILY Venlafaxine HCl ER [Effexor XR] 37.5 mg PO DAILY Omeprazole 20 mg PO DAILY Ibuprofen 800 mg PO Q8H PRN PRN Reason: Pain Isosorbide Mononitrate ER [Imdur] 30 mg PO DAILY metFORMIN HCL [Glucophage] 1,000 mg PO BID Ezetimibe [Zetia] 10 mg PO DAILY Discharge Medication List Aspirin EC [Ecotrin Low Dose] 81 mg PO DAILY 12/28/14 [History] Metoprolol Tartrate 25 mg PO QAM 12/28/14 [History] Atorvastatin [Lipitor] 80 mg PO DAILY 03/22/16 [History] Venlafaxine HCl ER [Effexor XR] 37.5 mg PO DAILY 07/10/18 [History] Omeprazole 20 mg PO DAILY 11/18/18 [History] Ibuprofen 800 mg PO Q8H PRN 05/15/19 [History] Isosorbide Mononitrate ER [Imdur] 30 mg PO DAILY 06/03/19 [History] metFORMIN HCL [Glucophage] 1,000 mg PO BID 06/03/19 [History] Ezetimibe [Zetia] 10 mg PO DAILY 06/02/20 [History]
[2020-12-13 13:19] VITALS: BP 123/69; PULSE 53; RESP 16
--- NOTE | 2020-12-13 16:51 | FL ---
Fluoroscopy INDICATION: Pain FINDINGS: Fluoroscopy time: 4 seconds. Images obtained: 2. IMPRESSIONS: 1. Documentation of fluoroscopy.
== END 2020-12-13 13:24 | disposition home or self-care (01) ==
LOC: ORPAIN 11:43
DX: M47.26 Other spondylosis with radiculopathy, lumbar region (principal); M51.16 Intervertebral disc disorders with radiculopathy, lumbar region; I10 Essential (primary) hypertension; I25.10 Atherosclerotic heart disease of native coronary artery without angina pectoris; Z86.73 Personal history of transient ischemic attack (TIA), and cerebral infarction without residual deficits; E11.9 Type 2 diabetes mellitus without complications; Z98.890 Other specified postprocedural states; Z79.82 Long term (current) use of aspirin; Z88.5 Allergy status to narcotic agent
CPT/HCPCS: 62323; J1030; Q9966

== ENCOUNTER → 2020-12-29 | Outpatient (CLI) | payer MEDICARE, BC ==
--- NOTE | 2020-12-30 08:29 | XR ---
EXAMINATION TYPE: XR Hip Complete LT DATE OF EXAM: 12/29/2020 COMPARISON: NONE HISTORY: 70-year-old male [id number], left hip pain TECHNIQUE: 2 views FINDINGS: Mild degenerative spurring of the left hip. Relative preservation of hip joint space. Either os aceta buli or degenerative labral ossification noted along the superolateral acetabular margin. Left-sided pelvic phlebolith. No acute fracture, subluxation, or dislocation. IMPRESSION: Mild left hip OA. No acute osseous abnormality seen.
== END | disposition home or self-care (01) ==
LOC: RADXRYALE 15:54
PROVIDERS: ATTEND Physician Assistant
DX: M16.12 Unilateral primary osteoarthritis, left hip (principal)
CPT/HCPCS: 73502

== ENCOUNTER → 2021-01-09 | Outpatient (CLI) | payer MEDICARE, BC ==
[2021-01-09 14:20] VITALS: BP 146/81; PULSE 109; RESP 16; TEMP 98.3
--- NOTE | 2021-01-09 14:38 | P.PN ---
Subjective Progress Note Date: 01/09/21 This is follow-up visit for this 70 years old male with a chronic history of severe Low back pain,he is diagnosed with Lumbar spondylosis with facet arthropathy, lumbar degenerative disc disease, and currently we have done lumbar epidural steroid injections at L4 5, she had 0 benefits from it he continued to have severe low back pain, he denies any motor or sensory or sensory deficit, denies any fever or night sweats he denies any change in the bowel movement or urination, the pain interfere with her quality of life and interfere with activity of daily livings, he continued to use Motrin when necessary which is providing him with minimal benefit Physical Examinations : -Constitutiona : Cooperative , not in acute distress . -HEENT : nech : supple , no Lymphadenopathy , normal thyroid size . : eyes : no ptosis , no icterus, no photophobia . - neurologic : Cranial nerve II to XII intact , no focal neurological deffecit . -psychatric : alert , oriented X 3 , appropriate affect , intact judgment and insight . -Lymphatic : no Lymphadenopathy . - musculoskeltal : Lumber spine moter stegnth lower extremities ,thigh and legs 5/5 Right side , 5/5 Left side deep tendon reflexes : normal Knee Jerk , normal ankle Jerk lumber facet Loading Test =positive Right , positive Left Range of motion of the lumbar spine Flexion 30 degrees, extension 10 degrees strait leg raising test = positive at 45 degree Fabere test= positive Right , and positive LT . tenderness over the Sacroiliac joint on the Right , and Left sides . Primary of the lumbar spine done in 2016= multilevel lumbar degenerative disc disease multilevel lumbar spondylosis with lumbar facet arthropathy Assessment and plan= 1-Lumbar degenerative disc disease. 2-lumbar spondylosis with lumbar facet arthropathy without myelopathy. Patient had no benefit from lumbar epidural steroid injection. She to be good candidate for diagnostic medial branch block lumbar area at L4 5 and L5-S1 she had positive results with proceed with RFA - PQRS measures = - Patient's medications are documented in the chart. -Tobacco use is negative and counseling.Given. -Patient's has not received pneumococcal vaccine. -Advanced care planning discussed, patient not eligible. -Opiate contract not signed. -Pain positive and follow-up visit/procedure is scheduled. -Patient's blood pressure measured [ 146/81] , and documented in the record ,and patient will follow up with the primary care. -Patient's weight was measured and body mass index [35.9 ] above the, normal limits and counseling was done. and patient instructed to follow-up with the primary care physician. -Patient was not identified as an unhealthy alcohol user Objective - Vital Signs Vital signs: Vital Signs Temp 98.3 F 01/09/21 14:10 Pulse 109 H 01/09/21 14:10 Resp 16 01/09/21 14:10 BP 146/81 01/09/21 14:10 Pulse Ox
== END | disposition home or self-care (01) ==
LOC: PNWHC3 13:48
PROVIDERS: ATTEND Specialist
DX: M47.896 Other spondylosis, lumbar region (principal); M51.36 Other intervertebral disc degeneration, lumbar region
CPT/HCPCS: 99211

== ENCOUNTER 2021-02-21 12:32 | Day surgery (SDC) | payer MEDICARE, BC ==
[2021-02-14 13:44] VITALS: BMI 36.3
[~2021-02-21 12:32] MED LIST changes: -LIDOCAINE 1% (10MG/ML) FOR IV START INTRADERMA PRN
[2021-02-21 12:43] VITALS: RESP 18; TEMP 97.9
[2021-02-21 12:44] LABS: Glucose,Whole Blood 244 mg/dL (75-99)
[2021-02-21] MEDS ORDERED: ROPIVACAINE 5MG/ML 20ML VIAL ONE (13:13)
[2021-02-21] MEDS ORDERED: TRIAMCINOLONE ACETONIDE 40 MG/ML 1 ML VIAL ONE (13:13)
--- NOTE | 2021-02-21 13:30 | P.PCN ---
Date of Procedure: 02/21/21 Description of Procedure: Pre- and Post-operative Diagnosis: Lumbar facet arthropathy, and lumbar spondylosis without myelopathy. Procedure: #1 Diagnostic Medial Branch Block at bilateral Lumbar 4/5 and #1 diagnostic dorsal ramus block at Lumbar 5/ sacral ala levels (total 4 levels) Surgeon: Alayna Johansen Anesthesia: Local: 1% Lidocaine, IV sedation : None Complications: None EBL: None Specimen removed: None Fluoroscopic image: Saved to patient electronic medical records. Indications for Procedure: The patient is well known to pain clinic for his chronic low back pain management. The lumbar facet loading test was positive with a clinical diagnosis of lumbar facet arthropathy. Failed with conservative therapy. Came here for interventional help for better pain relief. Procedure and Findings: The patient was seen and examined. The written informed consent was obtained after explaining the risks, benefits and alternatives of the procedure to the patient. The patient was brought to the procedure room and was placed in the prone position on the operating table table. A pillow was placed under the abdomen to reduce lumbar lordosis. Standard anesthesia monitoring was done through out the procedure. The skin preparation was done with ChloraPrep, and draping was done in usual sterile fashion. Sterile technique was observed throughout the procedure. Under fluoroscopic guidance, right the Lumbar 4, 5 and Sacral ala levels were identified in the AP view. For lumbar L4, and L5 levels the targeting area of superior articular process, and close to the most medial and superior aspect of transverse process identified, marked. 1ml of 1% Lidocaine was used with a 25 gauge needle to achieve adequate local anesthesia of the skin and subcutaneous tissue at each level. A 22 gauge 3.5 inch spinal needle was placed and advanced targeting area which was close to the most medial and superior aspect of the transverse process. For Lumbar 5/ sacral ala level, fluoroscope was used in the anteroposterior view, and the needle tip was placed at the superior and most medial part of sacral ala close to the superior articular process. A bony contact was obtained and needle tip position was confirmed at anteroposterior view. No paresthesia was noted. A negative aspiration was confirmed. 1 ml solution per level was injected, the block solution containing 5 ml of 0.5% ropivacaine preservative-free solution mixed with 40 MG of Kenalog. The needles were removed intact. Entire procedure repeated on the left side. Lumbar area was cleaned and bandages were applied. Disposition : The patient tolerated the procedure very well. The patient was transferred to the recovery room and remained stable until discharged home. The patient was given detailed discharge instructions for infection, bleeding, and increased pain at the injection site, and was advised to seek immediate medical attention should significant side effects develop. The patient will be scheduled with Pain Clinic within 4 weeks for repeat procedure if it's helpful.
[2021-02-21 13:51] VITALS: BP 150/81; PULSE 56
--- NOTE | 2021-02-21 14:11 | FL ---
EXAMINATION TYPE: FL guided pain mgmt statistic DATE OF EXAM: 02/21/2021 FLUOROSCOPY Fluoroscopy time of 30 seconds was used during bilateral lumbar facet blocks. 2 image/s document/s t he procedure.
== END 2021-02-21 13:57 | disposition home or self-care (01) ==
LOC: ORPAIN 12:32
DX: G89.29 Other chronic pain (principal); M47.816 Spondylosis without myelopathy or radiculopathy, lumbar region; M19.90 Unspecified osteoarthritis, unspecified site; I10 Essential (primary) hypertension; I25.10 Atherosclerotic heart disease of native coronary artery without angina pectoris; E11.9 Type 2 diabetes mellitus without complications; Z95.5 Presence of coronary angioplasty implant and graft; Z98.890 Other specified postprocedural states; Z96.651 Presence of right artificial knee joint; Z88.5 Allergy status to narcotic agent
CPT/HCPCS: 64493; 64494; J3301; J2795; 99152

== ENCOUNTER → 2021-03-13 | Outpatient (CLI) | payer MEDICARE, BC ==
[2021-03-13 14:14] VITALS: BP 128/73; PULSE 62; RESP 18; TEMP 98.1
--- NOTE | 2021-03-13 14:43 | P.PN ---
Subjective Progress Note Date: 03/13/21 Principal diagnosis: A 70 yr old male with a history of severe and chronic low back pain secondary to lumbar degenerative disc diseases and lumbar spondylosis with facet arthropathy presents today for a follow-up for a bilateral facet block/ medial branch of the L4-L5 and L5-S1. Patient admits to 50% pain relief with the procedure. Pain level is currently at 4 out of 10 but with activity escalates to 8 out of 10. Pain is dull/ achy in the lumbar spine and sharp/ shooting towards the left hip. Pain is alleviated with medications, topical, injections, ice, heat, stretching, repositioning and rest. Interventional pain procedures completed include bilateral facet block medial branch of L4-L5, L5-S1 Patient is currently on Motrin 800mg prn Patient denies any side effects of the medication(s), denies excessive drowsiness or sleepiness, denies suicidal ideation and reports that the current pain medication is helping to control the pain and improve activities of daily living. Patient denies any motor or sensory deficits. Patient denies any fever or night sweats, denies any change in the bowel movements or urination. Physical Examination: -Constitutional: Cooperative. Not in acute distress . -HEENT: Neck is supple. No lymphadenopathy. No thyromegaly. Normal thyroid size. Eyes: No ptosis , no icterus, no photophobia. ENT: No auditory deficits. Normal oropharynx. No Thrush. - Respiratory: Chest clear to auscultations bilaterally. No wheezing. No rhonchi. - Cardiovascular: Regular rate and rhythm. S1 / S2 , no S3 , no S4. - Gastrointestinal: Abdomen soft no tenderness. Bowel sounds positive in all four quadrants. No organomegaly. - Genitourinary: Deferred. - Neurologic: Cranial nerve II to XII intact. No focal neurological deficits. - Psychatric: Alert & oriented x 3. Matching mood & appropriate affect. Judgment and insight intact. - Lymphatic: No Lymphadenopathy. - Musculoskeletal: Cervical spine: Muscle bulk/ tone/ strength in the bilateral upper extremities normal. Facet loading test cervical area positive. Lumbar spine: Motor bulk/ tone/ strength lower extremities , thigh and legs : 5/5 Deep tendon reflexes : Normal Knee Jerk. Normal Ankle Jerk . Lumbar Facet Loading Test positive over L4-L5, L5-S1 Mild vertebral body tenderness to palpation over L4 and L5 Straight Leg Raise: positive at 30 degree right side/ left side Shanna test: positive right side / left side Range of motion: Flexion of the lumbar spine 60 degrees Range of motion: Extension of the lumbar spine <20 degrees Severe tenderness over the Sacroiliac joint: right side / left side Assessment and plan: Chronic low back pain secondary to lumbar degenerative disc disease , lumbar spondylosis with facet arthropathy without myelopathy Recommendation of second bilateral facet block medial branch of the L4-L5 L5-S1 May need to follow-up with a bilateral RFA for sufficient pain relief Consultation after procedure recommended Risks and benefits of procedure discussed and patient verbalized understanding Discontinue aspirin and Motrin 3 days prior to procedure All patient questions answered MAPS reviewed and it was appropriate. I have spent 31 minutes on patient care today. Dr Colin was available by phone for the evaluation of this patient. The time was used to review the medical records including relevant urine studies and Prescription history (MAPs), review of the available imaging, evaluation and examination of the patient, coordination of care with the medical staff and if applicable referring physicians, as well as creation of the medical record Objective - Vital Signs Vital signs: Vital Signs Temp 98.1 F 03/13/21 14:08 Pulse 62 03/13/21 14:08 Resp 18 03/13/21 14:08 BP 128/73 03/13/21 14:08 Pulse Ox 97 03/13/21 14:08 PQRS Measure Charge Sheet Mode of Arrival: Ambulatory - Pain Location Left Hip Pharmacological Interventions: PRN Medication Lower Back Non-Pharmacological Interventions: Heat, Home Exercise, Ice, Inactivity, Position/Reposition, Stretching Pharmacological Interventions: Block, PRN Medication, Topical Medication PQRS Narrative: Smoking Status Former smoker Blood Pressure 128/73 Pain Intensity [Lower Back] 4 Pain Intensity [Left Hip] 7 Scale Used Numeric (1 - 10) Hx Alcohol Use (MH) No Home Medications: Ambulatory Orders Aspirin EC [Ecotrin Low Dose] 81 mg PO DAILY 12/28/14 Metoprolol Tartrate 25 mg PO QAM 12/28/14 Atorvastatin [Lipitor] 80 mg PO DAILY 03/22/16 Venlafaxine HCl ER [Effexor XR] 37.5 mg PO DAILY 07/10/18 Omeprazole 20 mg PO DAILY 11/18/18 Ibuprofen 800 mg PO Q8H PRN 05/15/19 Isosorbide Mononitrate ER [Imdur] 30 mg PO DAILY 06/03/19 metFORMIN HCL [Glucophage] 1,000 mg PO BID 06/03/19 Ezetimibe [Zetia] 10 mg PO DAILY 06/02/20
== END | disposition home or self-care (01) ==
LOC: PNWHC3 13:24
PROVIDERS: ATTEND Physician Assistant Medical
DX: M51.36 Other intervertebral disc degeneration, lumbar region (principal); M47.816 Spondylosis without myelopathy or radiculopathy, lumbar region; M46.96 Unspecified inflammatory spondylopathy, lumbar region
CPT/HCPCS: 99211

== ENCOUNTER 2021-04-11 09:04 | Day surgery (SDC) | payer MEDICARE, BC ==
[2021-04-11 09:26] VITALS: TEMP 98.4
[2021-04-11 09:32] LABS: Glucose,Whole Blood 153 mg/dL (75-99)
[2021-04-11] MEDS ORDERED: TRIAMCINOLONE ACETONIDE 40 MG/ML 1 ML VIAL ONE (09:34)
[2021-04-11] MEDS ORDERED: ROPIVACAINE 5MG/ML 20ML VIAL ONE (09:34)
--- NOTE | 2021-04-11 09:53 | P.PCN ---
Date of Procedure: 04/11/21 Description of Procedure: Pre- and Post-operative Diagnosis: Lumbar facet arthropathy, and lumbar spondylosis without myelopathy. Procedure: #2 Diagnostic Medial Branch Block at bilateral Lumbar 4/5 and #2 diagnostic dorsal ramus block at Lumbar 5/ sacral ala levels (total 4 levels) Surgeon: Alayna Johansen Anesthesia: Local: 1% Lidocaine, IV sedation :NONE Complications: None EBL: None Specimen removed: None Fluoroscopic image: Saved to patient electronic medical records. Indications for Procedure: The patient is well known to pain clinic for his chronic low back pain management. The lumbar facet loading test was positive with a clinical diagnosis of lumbar facet arthropathy. Failed with conservative therapy. Patient had a 80% pain relief with the previous lumbar medial branch block for few days. Came here for interventional help for better pain relief. Procedure and Findings: The patient was seen and examined. The written informed consent was obtained after explaining the risks, benefits and alternatives of the procedure to the patient. The patient was brought to the procedure room and was placed in the prone position on the operating table table. A pillow was placed under the abdomen to reduce lumbar lordosis. Standard anesthesia monitoring was done through out the procedure. The skin preparation was done with ChloraPrep X1, and draping was done in usual sterile fashion. Sterile technique was observed throughout the procedure. Under fluoroscopic guidance, right-sided the Lumbar 4, 5 and Sacral ala levels were identified in the AP view. For lumbar L4, and L5 levels the targeting area of superior articular process, and close to the most medial and superior aspect of transverse process identified, marked. 1ml of 1% Lidocaine was used with a 25 gauge needle to achieve adequate local anesthesia of the skin and subcutaneous tissue at each level. A 22 gauge 3.5 inch spinal needle was placed and advanced targeting area which was close to the most medial and superior aspect of the transverse process. For Lumbar 5/ sacral ala level, fluoroscope was used in the anteroposterior view, and the needle tip was placed at the superior and most medial part of sacral ala close to the superior articular process. A bony contact was obtained and needle tip position was confirmed at anteroposterior view. No paresthesia was noted. A negative aspiration was confirmed. 1 ml solution per level was injected, the block solution containing 5 ml of 0.5% ropivacaine preservative-free solution mixed with 40 MG of Kenalog. The needles were removed intact. Entire procedure repeated on the left side. Lumbar area was cleaned and bandages were applied. Disposition : The patient tolerated the procedure very well. The patient was transferred to the recovery room and remained stable until discharged home. The patient was given detailed discharge instructions for infecti a on, bleeding, and increased pain at the injection site, and was advised to seek immediate medical attention should significant side effects develop. The patient will be scheduled with Pain Clinic within 4 weeks for lumbar radiofrequency ablation if it's helpfu
[2021-04-11 10:00] VITALS: RESP 20
[2021-04-11] MEDS ORDERED: LACTATED RINGERS 1,000 ML IV SCH (10:00)
--- NOTE | 2021-04-11 10:00 | FL ---
EXAMINATION TYPE: FL guided pain mgmt statistic DATE OF EXAM: 04/11/2021 CLINICAL HISTORY: Low back pain. TECHNIQUE: Fluoroscopy. COMPARISON: None. FINDINGS: Fluoroscopic guidance was provided during pain relief procedure performed by Dr. Alvarado . A total of 4 seconds of fluoroscopic time was utilized during the procedure and two spot images are acquired. Images acquired shows needle localization at several levels in the lower lumbar spine and upper sacrum. IMPRESSION: As Above.
[2021-04-11 10:10] VITALS: BP 152/89; PULSE 60
== END 2021-04-11 10:24 ==
LOC: ORPAIN 09:04
DX: M54.12 Radiculopathy, cervical region (principal); M54.2 Cervicalgia; G89.29 Other chronic pain; M47.816 Spondylosis without myelopathy or radiculopathy, lumbar region; I25.10 Atherosclerotic heart disease of native coronary artery without angina pectoris; Z85.46 Personal history of malignant neoplasm of prostate; Z98.1 Arthrodesis status; Z96.651 Presence of right artificial knee joint; Z95.5 Presence of coronary angioplasty implant and graft; Z98.890 Other specified postprocedural states; Z88.5 Allergy status to narcotic agent; Z88.8 Allergy status to other drugs, medicaments and biological substances
CPT/HCPCS: 64493; 64494; J3301; J2795

== ENCOUNTER → 2021-04-27 | Outpatient (CLI) | payer MEDICARE, BC ==
[2021-04-27 14:34] VITALS: BP 125/79; PULSE 62; RESP 18; TEMP 97.8
--- NOTE | 2021-04-27 14:44 | P.PN ---
Subjective Progress Note Date: 04/27/21 Principal diagnosis: A 70 yr old male with a history of severe and chronic low back pain secondary to lumbar degenerative disc diseases and lumbar spondylosis with facet arthropathy presents today for evaluation status post facet blocks of the medial branches bilateral L4-L5, L5-S1. Patient states he obtain 70% pain relief for one week status post procedure. Pain level is currently at 6 out of 10 in intensity, dull, achy in the lower aspect of his lumbar spine with occasional radiation of pain down the left lower extremity. Pain is provoked by bending or lifting. Pain is alleviated with OTC medications which are ineffective, injections, ice, chiropractic treatments in the past, repositioning, hot showers and rest. Interventional pain procedures completed include FB of the MB BL L3-L5 #3 Patient is currently on OTC Tylenol Patient denies any side effects of the medication(s), denies excessive drowsiness or sleepiness, denies suicidal ideation and reports that the current pain medication is helping to control the pain and improve activities of daily living. Patient denies any motor or sensory deficits. Patient denies any fever or night sweats, denies any change in the bowel movements or urination. Physical Examination: -Constitutional: Cooperative. Not in acute distress . -HEENT: Neck is supple. No lymphadenopathy. No thyromegaly. Normal thyroid size. Eyes: No ptosis , no icterus, no photophobia. ENT: No auditory deficits. Normal oropharynx. No Thrush. - Respiratory: Chest clear to auscultations bilaterally. No wheezing. No rhonchi. - Cardiovascular: Regular rate and rhythm. S1 / S2 , no S3 , no S4. - Gastrointestinal: Abdomen soft no tenderness. Bowel sounds positive in all four quadrants. No organomegaly. - Genitourinary: Deferred. - Neurologic: Cranial nerve II to XII intact. No focal neurological deficits. - Psychatric: Alert & oriented x 3. Matching mood & appropriate affect. Judgment and insight intact. - Lymphatic: No Lymphadenopathy. - Musculoskeletal: Cervical spine: Muscle bulk/ tone/ strength in the bilateral upper extremities normal. Facet loading test cervical area positive. Lumbar spine: Motor bulk/ tone/ strength lower extremities , thigh and legs : 5/5 Deep tendon reflexes : Normal Knee Jerk. Normal Ankle Jerk . Vertebral body tenderness to palpation over Lumbar Facet Loading Test positive Jump reflex with deep palpation over BL L4-L5, L5-S1 with accompanying paraspinal muscle spasms Straight Leg Raise: positive at 30 degrees right side/ left side Gaenslen's Test positive Sacral spine : Severe tenderness over the Sacroiliac joint: right side / left side Range of motion: Flexion of the lumbar spine <60 degrees Range of motion: Extension of the lumbar spine <20 degrees Gaenslen's Test positive Shanna test: positive right side / left side Assessment and plan: Chronic low back pain secondary to lumbar degenerative disc disease , lumbar spondylosis with facet arthropathy without myelopathy Recommendation of BL RFA of L3-L5. Risks, benefits of procedure discussed and pt verbalized understanding. Admits to ASA 81 mg and medical history of diabetes with Metformin use. Protocol of discontinuation/ continuation of medications arianne- procedure discussed. All patient questions answered MAPS reviewed and it was appropriate. I have spent 31 minutes on patient care today. Dr Colin was available by phone for the evaluation of this patient. The time was used to review the medical records including relevant urine studies and Prescription history (MAPs), review of the available imaging, evaluation and examination of the patient, coordination of care with the medical staff and if applicable referring physicians, as well as creation of the medical record Objective - Vital Signs Vital signs: Vital Signs Temp 97.8 F 04/27/21 14:29 Pulse 62 04/27/21 14:29 Resp 18 04/27/21 14:29 BP 125/79 04/27/21 14:29 Pulse Ox 97 04/27/21 14:29 Intake & Output 04/26/21 04/27/21 04/27/21 18:59 06:59 18:59 Weight 129.274 kg PQRS Measure Charge Sheet Mode of Arrival: Ambulatory - Pain Location Lower Back Non-Pharmacological Interventions: Chiropractic Treatment, Position/Reposition Pharmacological Interventions: Block PQRS Narrative: Smoking Status Former smoker Blood Pressure 125/79 Pain Intensity [Lower Back] 6 Scale Used Numeric (1 - 10) Hx Alcohol Use (MH) No Home Medications: Ambulatory Orders Aspirin EC [Ecotrin Low Dose] 81 mg PO DAILY 12/28/14 Metoprolol Tartrate 25 mg PO QAM 12/28/14 Atorvastatin [Lipitor] 80 mg PO DAILY 03/22/16 Venlafaxine HCl ER [Effexor XR] 37.5 mg PO DAILY 07/10/18 Omeprazole 20 mg PO DAILY 11/18/18 Ibuprofen 800 mg PO Q8H PRN 05/15/19 Isosorbide Mononitrate ER [Imdur] 30 mg PO DAILY 06/03/19 metFORMIN HCL [Glucophage] 1,000 mg PO BID 06/03/19 Ezetimibe [Zetia] 10 mg PO DAILY 06/02/20
== END | disposition home or self-care (01) ==
LOC: PNWHC3 13:43
PROVIDERS: ATTEND Specialist
DX: M47.896 Other spondylosis, lumbar region (principal); M51.36 Other intervertebral disc degeneration, lumbar region
CPT/HCPCS: 99211

== ENCOUNTER 2021-06-09 11:19 | Day surgery (SDC) | payer MEDICARE, BC ==
[2021-06-09 11:45] VITALS: RESP 16; TEMP 96.8
[2021-06-09 12:05] LABS: Glucose,Whole Blood 148 mg/dL (75-99)
--- NOTE | 2021-06-09 12:24 | P.PCN ---
Date of Procedure: 06/09/21 Description of Procedure: PREOPERATIVE DIAGNOSIS: Lumbar Facet Arthropathy without myelopathy POSTOPERATIVE DIAGNOSIS: Same PROCEDURES: bilateral Radiofrequency thermocoagulation of L4-5, L5-S1 medial branches, with fluoroscopic guidance ANESTHESIA: Local sedation only Imaging: Fluoroscopy was used, images where saved to the medical record PROCEDURE INDICATION: The patient with low back pain secondary to lumbar facet arthropathy who had more than 50% relief of pain with previous diagnostic lumbar medial branch block with local anesthetic. PROCEDURE DESCRIPTION / TECHNIQUE: The patient was seen and identified in the preoperative area. Risks, benefits, complications, including but not limited to risk of infection, bleeding, allergic reactions to the medications and no complete pain relief, and alternatives were discussed with the patient, the patient agreed to proceed with the procedure and signed the consent. IV was started. Vital signs remained stable throughout the procedure. Patient was taken to the OR and time out was completed. The patient was placed in the prone position on the procedure table. The lumber area was prepped and draped in the usual sterile fashion. Vital signs were closely monitored during the procedure. IV sedation was used during the procedure to decrease patient anxiety. Using AP and then oblique fluoroscopy, the eye of the Vazquez dog corresponding to the connection between the superior and transverse articular processes of L4, L5, and sacral Ala were identified, marked, and localized with 1% lidocaine. Subsequently, a 20 [id number] radiofrequency cannula with a 10-mm active tip was advanced guided by fluoroscopy to the junction of the pedicle and transverse process of each identified level. Each site then underwent sensory testing at 50 Hz and 0 to 1 volt and motor testing at 2.5 Hz and 0 to 3 volt with local stimulation, no radicular symptoms sensed by the patient and no obvious motor stimulation noted. Thereafter the tested sites underwent radiofrequency thermocoagulation at 80 degrees celsius for 90 seconds after injecting 1 ml of PF lidocaine 1%. Then after the thermocoagulation was done, 1 ml of the block solution containing ropivaciane 0.5% was injected at the lesioned sites after negative aspiration of CSF and blood and with no paresthesias. Cannulas were retracted. At the end of the procedure, the skin was cleansed and bandages were applied. COMPLICATIONS: No acute complications. DISPOSITION / PLANS: The patient was placed in a supine position and transferred to the recovery area in a stable condition for observation and was discharged from the recovery room after meeting discharge criteria. Home discharge instructions given to the patient by the staff. The patient was reexamined prior to discharge. Patient will follow up as directed.
[2021-06-09] MEDS ORDERED: LIDOCAINE 2% INJ 20 MG/ML (2 ML VIAL) ONE (12:25)
[2021-06-09] MEDS ORDERED: ROPIVACAINE 5MG/ML 20ML VIAL ONE (12:25)
--- NOTE | 2021-06-09 13:05 | FL ---
EXAMINATION TYPE: FL guided pain mgmt statistic DATE OF EXAM: 06/09/2021 CLINICAL HISTORY: Low back pain. TECHNIQUE: Fluoroscopy. COMPARISON: None. FINDINGS: Fluoroscopic guidance was provided during pain relief procedure performed by Dr. Petit. A total of approximately 10 seconds of fluoroscopic time was utilized during the procedure and 6 spot images are acquired. Images acquired shows needle localization at multiple levels in the lower lumb ar spine. IMPRESSION: As Above.
[2021-06-09 13:21] VITALS: BP 130/70; PULSE 55
== END 2021-06-09 13:21 | disposition home or self-care (01) ==
LOC: ORPAIN 11:19
PROVIDERS: ATTEND Hospitalist
DX: M47.816 Spondylosis without myelopathy or radiculopathy, lumbar region (principal); Z88.5 Allergy status to narcotic agent
CPT/HCPCS: 64635; 64636; J2001 ×2; J2795

== ENCOUNTER → 2021-06-27 | Outpatient (CLI) | payer MEDICARE, BC ==
--- NOTE | 2021-06-27 18:43 | XR ---
EXAMINATION TYPE: XR Hip Bilateral Complete, 2 views each side DATE OF EXAM: 06/27/2021 COMPARISON: 06/17/2015 HISTORY: 70-year-old male with bilateral hip pain [id number], [id number] FINDINGS: Mild degenerative spurring at both hips. Left greater than right. Minimal superolateral narrowing of cartilage and joint space. Left-sided pelvic phlebolith. No acute fracture, subluxation, or dislocati on. IMPRESSION: [id number] left and mild right hip osteoarthrosis. Progressed from 2015 on the left.
== END | disposition home or self-care (01) ==
LOC: RADXRYALE 10:47
PROVIDERS: ATTEND Family Medicine
DX: M16.0 Bilateral primary osteoarthritis of hip (principal)
CPT/HCPCS: 73521

== ENCOUNTER → 2021-07-12 | Outpatient (CLI) | payer MEDICARE, BC ==
[2021-07-12 14:08] VITALS: BP 146/80; PULSE 61; RESP 18; TEMP 98.4
--- NOTE | 2021-07-12 14:25 | P.PN ---
Subjective Progress Note Date: 07/12/21 Principal diagnosis: A 70 yr old male with a history of severe and chronic low back pain secondary to lumbar degenerative disc diseases and lumbar spondylosis with facet arthropathy presents today for evaluation status post BL RFA L3-L5. He states he expressed 40% pain relief for 3 weeks status post procedure. Pain level is currently at 6 out of 10 in intensity and localized to the left hip. It is intermittent in character, shooting/stabbing and provoked with sitting for periods of 30 minutes or more. Pain is alleviated with alternating ice and heat, chiropractic treatments in 2019, activity and rest. X ray of the L hip from 06/27/21 showing mild to moderate osteoparthritis reviewed with pt. Interventional pain procedures completed include BL RFA L3-L5 Patient is currently on denies Patient denies any side effects of the medication(s), denies excessive drowsiness or sleepiness, denies suicidal ideation and reports that the current pain medication is helping to control the pain and improve activities of daily living. Patient denies any motor or sensory deficits. Patient denies any fever or night sweats, denies any change in the bowel movements or urination. Physical Examination: -Constitutional: Cooperative. Not in acute distress . -HEENT: Neck is supple. No lymphadenopathy. No thyromegaly. Normal thyroid size. Eyes: No ptosis , no icterus, no photophobia. ENT: No auditory deficits. Normal oropharynx. No Thrush. - Respiratory: Chest clear to auscultations bilaterally. No wheezing. No rhonchi. - Cardiovascular: Regular rate and rhythm. S1 / S2 , no S3 , no S4. - Gastrointestinal: Abdomen soft no tenderness. Bowel sounds positive in all four quadrants. No organomegaly. - Genitourinary: Deferred. - Neurologic: Cranial nerve II to XII intact. No focal neurological deficits. - Psychatric: Alert & oriented x 3. Matching mood & appropriate affect. Judgment and insight intact. - Lymphatic: No Lymphadenopathy. - Musculoskeletal: Cervical spine: Muscle bulk/ tone/ strength in the bilateral upper extremities normal Vertebral body tenderness to palpation over Facet loading test positive Thoracic spine Muscle bulk / tone/ strength in the bilateral paraspinal muscles normal Vertebral body tender to palpation over Facet loading test positive Lumbar spine: Motor bulk/ tone/ strength lower extremities , thigh and legs : 5/5 Deep tendon reflexes : Normal Knee Jerk. Normal Ankle Jerk . Vertebral body tenderness to palpation over Lumbar Facet Loading Test positive Straight Leg Raise: positive at 30 degrees right side/ left side Gaenslen's Test positive +L Kim test Sacral spine : Severe tenderness over the Sacroiliac joint: right side / left side Range of motion: Flexion of the lumbar spine <60 degrees Range of motion: Extension of the lumbar spine <20 degrees Gaenslen's Test positive Brant's Test positive Shanna test: positive right side / left side Thigh Thrust Test Sacral Thrust Test Assessment and plan: Chronic low back pain secondary to lumbar degenerative disc disease , lumbar spondylosis with facet arthropathy without myelopathy X-ray L hip from 06/27/21 reviewed. MRI without contrast of the L hip re: M16.10 Pt may return to our clinic within 2-4 weeks to discuss imaging results and explore treatment options. All patient questions answered I have spent 31 minutes on patient care today. Dr Colin was available by phone for the evaluation of this patient. The time was used to review the medical records including relevant urine studies and Prescription history (MAPs), review of the available imaging, evaluation and examination of the patient, coordination of care with the medical staff and if applicable referring physicians, as well as creation of the medical record Objective - Vital Signs Vital signs: Vital Signs Temp 98.4 F 07/12/21 13:59 Pulse 61 07/12/21 13:59 Resp 18 07/12/21 13:59 BP 146/80 07/12/21 13:59 Pulse Ox 97 07/12/21 13:59 FiO2 Intake & Output 07/11/21 07/12/21 07/12/21 18:59 06:59 18:59 Weight 127.006 kg PQRS Measure Charge Sheet Mode of Arrival: Ambulatory - Pain Location Left Hip Non-Pharmacological Interventions: Chiropractic Treatment Pharmacological Interventions: Block, Epidural PQRS Narrative: Smoking Status Former smoker Blood Pressure 146/80 Pain Intensity [Left Hip] 6 Hx Alcohol Use (MH) No Home Medications: Ambulatory Orders Aspirin EC [Ecotrin Low Dose] 81 mg PO DAILY 12/28/14 Metoprolol Tartrate 25 mg PO QAM 12/28/14 Atorvastatin [Lipitor] 80 mg PO DAILY 03/22/16 Venlafaxine HCl ER [Effexor XR] 37.5 mg PO DAILY 07/10/18 Omeprazole 20 mg PO DAILY 11/18/18 Ibuprofen 800 mg PO Q8H PRN 05/15/19 Isosorbide Mononitrate ER [Imdur] 30 mg PO DAILY 06/03/19 metFORMIN HCL [Glucophage] 1,000 mg PO BID 06/03/19 Ezetimibe [Zetia] 10 mg PO DAILY 06/02/20
== END | disposition home or self-care (01) ==
LOC: PNWHC3 13:47
PROVIDERS: ATTEND Specialist
DX: M47.896 Other spondylosis, lumbar region (principal); M51.36 Other intervertebral disc degeneration, lumbar region
CPT/HCPCS: 99211

== ENCOUNTER → 2021-08-09 | Outpatient (CLI) | payer MEDICARE, BC ==
[2021-08-09 14:27] VITALS: BP 138/79; PULSE 61; RESP 18; TEMP 98.4
--- NOTE | 2021-08-09 14:31 | P.PAINPG ---
PQRS Measure Charge Sheet Comment: A 70 yr old male with a history of severe and chronic low back pain secondary to lumbar degenerative disc diseases, lumbar spondylosis with facet arthropathy and L hip OA & Capsulitis presents today for MRI results. Pain level is currently at 6/10 in intensity, intermittent ( only when standing ), achy pain in the BL hips with shooting pain down the thighs. Pain is provoked by standing. Pain is not alleviated with meds/heat/ice/PT/chiropractic treatments as they "dont help." MRI results of L hip reviewed with pt. Patient is currently on Ibuprofen Patient denies any side effects of the medication(s), denies excessive drowsiness or sleepiness, denies suicidal ideation and reports that the current pain medication is helping to control the pain and improve activities of daily living. Patient denies any motor or sensory deficits. Patient denies any fever or night sweats, denies any change in the bowel movements or urination. Physical Examination: -Constitutional: Cooperative. Not in acute distress . - Neurologic: Cranial nerve II to XII intact. No focal neurological deficits. - Psychatric: Alert & oriented x 3. Matching mood & appropriate affect. Judgment and insight intact. - Musculoskeletal: Cervical spine: Muscle bulk/ tone/ strength in the bilateral upper extremities normal Vertebral body tenderness to palpation over Spurling test positive Distraction test positive Facet loading test positive Thoracic spine Muscle bulk / tone/ strength in the bilateral paraspinal muscles normal Vertebral body tender to palpation over Facet loading test positive Lumbar spine: Motor bulk/ tone/ strength lower extremities , thigh and legs : 5/5 Deep tendon reflexes : Normal Knee Jerk. Normal Ankle Jerk . Vertebral body tenderness to palpation over Lumbar Facet Loading Test positive Straight Leg Raise: positive at 30 degrees right side/ left side Gaenslen's Test positive Sacral spine : L anterior & lateral femoralacetabular TTP Severe tenderness over the Sacroiliac joint: right side / left side Range of motion: Flexion of the lumbar spine <60 degrees Range of motion: Extension of the lumbar spine <20 degrees Gaenslen's Test positive Brant's Test positive Shanna test: positive right side / left side Thigh Thrust Test Sacral Thrust Test Imaging: MRI without contrast of L hip from 08/01/21 reviewed Assessment and plan: Chronic low back pain secondary to lumbar DDD , lumbar spondylosis with facet arthropathy without myelopathy, L Hip OA, L hip capsulitis Recommendation of L hip intra articular injection. May need a series of injections up to 3 within a 6 mo time frame, for optimal pain relief. Risks, benefits of procedure discussed and pt verbalized understanding. Denies anticoag ulant use or medical history of diabetes. All patient questions answered MAPS reviewed and it was appropriate. I have spent less than 30 minutes on patient care today. Dr Colin was available by phone for the evaluation of this patient. The time was used to review the medical records including relevant urine studies and Prescription history (MAPs), review of the available imaging, evaluation and examination of the patient, coordination of care with the medical staff and if applicable referring physicians, as well as creation of the medical record PQRS Narrative: Smoking Status Former smoker Hx Alcohol Use () No Home Medications: Ambulatory Orders Aspirin EC [Ecotrin Low Dose] 81 mg PO DAILY 12/28/14 Metoprolol Tartrate 25 mg PO QAM 12/28/14 Atorvastatin [Lipitor] 80 mg PO DAILY 03/22/16 Venlafaxine HCl ER [Effexor XR] 37.5 mg PO DAILY 07/10/18 Omeprazole 20 mg PO DAILY 11/18/18 Ibuprofen 800 mg PO Q8H PRN 05/15/19 Isosorbide Mononitrate ER [Imdur] 30 mg PO DAILY 06/03/19 metFORMIN HCL [Glucophage] 1,000 mg PO BID 06/03/19 Ezetimibe [Zetia] 10 mg PO DAILY 06/02/20 Controlled Substance Measures - Controlled Substance Measures Is patient prescribed a controlled substance at discharge?: No
== END | disposition home or self-care (01) ==
LOC: PNWHC3 13:39
PROVIDERS: ATTEND Specialist
DX: M47.896 Other spondylosis, lumbar region (principal); M51.36 Other intervertebral disc degeneration, lumbar region
CPT/HCPCS: 99211

== ENCOUNTER 2021-09-19 11:12 | Day surgery (SDC) | payer MEDICARE, BC ==
[2021-09-19] MEDS ORDERED: IOPAMIDOL M200 10 ML VIAL ONE (11:38)
[2021-09-19] MEDS ORDERED: methylPREDNISolone ACETATE 40 MG/ML 1 ML VIAL ONE (11:38)
[2021-09-19] MEDS ORDERED: ROPIVACAINE 5MG/ML 20ML VIAL ONE (11:38)
[2021-09-19 11:39] VITALS: TEMP 97.2
[2021-09-19 11:39] LABS: Glucose,Whole Blood 157 mg/dL (70-110)
--- NOTE | 2021-09-19 11:51 | P.PCN ---
Date of Procedure: 09/19/21 Procedure(s) Performed: Left hip joint injection Description of Procedure: Preoperative diagnoses: 1. Left hip osteoarthritis Postoperative diagnoses: 1. Left hip osteoporosis Procedure: Left hip intra-articular steroid injection under fluoroscopy Anesthesia: Local only Description of the procedure: Patient was seen and identified in the preoperative holding area, risk and benefits, complications ,and alternatives of the procedure were discussed with the patient and patient agreed with the preceding, patient signed the consent and IV was started and vital signs were monitored throughout the procedure and it was stable. The patient was taken to the operating room and placed in supine position the groin area was prepped with chlorhexidine 3 and draped with the standard fashion. Local anesthetic was used with lidocaine 1% then using 25 -gauge needle, under direct fluoroscopy and anterior posterior image of the hip joint was ascertained. A 22-gauge Quincke needle was then advanced to the femoral neck un til contact with bone was made. After negative aspiration for blood, 3 mL of Omnipaque was then injected to confirm placement of needle into the joint capsule. Once correct position was confirmed and after negative aspiration for blood, a solution consisting of 5 ML's of 0.5% Marcaine with 40 mg/1 mL of Depo- Medrol was administered. A washout image was then obtained to confirm adequate spread within the joint capsule. Needle was removed, and a Band-Aid was placed. Patient tolerated procedure well with no complications Disposition: We'll see patient in clinic in 4 weeks' time to assess efficacy.
[2021-09-19 11:58] VITALS: BP 121/73; PULSE 59; RESP 16
--- NOTE | 2021-09-19 12:01 | FL ---
Fluoroscopy History: LARGE BURSA STER INJ LEFT HIP GREATER BURSA INJ PAIN SERVICES. FL TIME 9 SECS
== END 2021-09-19 12:07 | disposition home or self-care (01) ==
LOC: ORPAIN 11:12
PROVIDERS: ATTEND Hospitalist
DX: M81.0 Age-related osteoporosis without current pathological fracture (principal)
CPT/HCPCS: 77002; 20610; J1030; Q9966; J2795

== ENCOUNTER 2021-11-02 13:15 | Day surgery (SDC) | payer MEDICARE, BC ==
[2021-11-02 13:35] VITALS: RESP 16; TEMP 98.7
[2021-11-02] MEDS ORDERED: ROPIVACAINE 5 MG/ML 20 ML AMPULE ONE (13:37)
[2021-11-02] MEDS ORDERED: methylPREDNISolone ACETATE 40 MG/ML 1 ML VIAL ONE (13:37)
[2021-11-02] MEDS ORDERED: IOPAMIDOL M200 10 ML VIAL ONE (13:37)
[2021-11-02 13:38] LABS: Glucose,Whole Blood 182 mg/dL (70-110)
--- NOTE | 2021-11-02 13:51 | P.PCN ---
Date of Procedure: 11/02/21 Procedure(s) Performed: Preoperative diagnoses: 1. Left hip osteoarthritis Postoperative diagnoses: 1. Left hip osteoarthritis Procedure: Left hip intra-articular steroid injection under fluoroscopy Anesthesia: Local only Description of the procedure: Patient was seen and identified in the preoperative holding area, risk and benefits, complications ,and alternatives of the procedure were discussed with the patient and patient agreed with the preceding, patient signed the consent , and vital signs were monitored throughout the procedure and it was stable. The patient was taken to the operating room and placed in supine position the groin area was prepped with chlorhexidine 3 and draped with the standard fashion. Local anesthetic was used with lidocaine 1% then using 25 -gauge needle, under direct fluoroscopy and anterior posterior image of the hip joint was ascertained. A 22-gauge Quincke 5 inches long needle was then advanced to the femoral neck until contact with bone was made. After negative aspiration for bl ood, 3 mL of Omnipaque was then injected to confirm placement of needle into the joint capsule. Once correct position was confirmed and after negative aspiration for blood, a solution consisting of 5 ML's of 0.5% Marcaine with 40 mg/1 mL of Depo-Medrol was administered. A washout image was then obtained to confirm adequate spread within the joint capsule. Needle was removed, and a Band-Aid was placed. Patient tolerated procedure well with no complications Disposition: We'll see patient in clinic in 4 weeks' time to assess efficacy.
[2021-11-02] MEDS ORDERED: LIDOCAINE 1% (10MG/ML) FOR IV START INTRADERMA PRN (13:59)
[2021-11-02] MEDS ORDERED: LACTATED RINGERS 1,000 ML IV SCH (13:59)
--- NOTE | 2021-11-02 13:59 | FL ---
Fluoroscopy HISTORY: Pain 9 seconds fluoroscopy time supplied to the referring clinician. 2 intraoperative C-arm images docume nt the procedure. See dictated report from anesthesia.
[2021-11-02 14:11] VITALS: BP 147/72; PULSE 56
== END 2021-11-02 14:12 | disposition home or self-care (01) ==
LOC: ORPAIN 13:15
PROVIDERS: ATTEND Specialist
DX: M16.12 Unilateral primary osteoarthritis, left hip (principal); M70.62 Trochanteric bursitis, left hip; Z88.5 Allergy status to narcotic agent
CPT/HCPCS: 20610; 77002; J1030; Q9966; J2795

== ENCOUNTER → 2021-11-20 | Outpatient (CLI) | payer MEDICARE, BC ==
[2021-11-20 13:55] VITALS: BP 145/85; PULSE 56; RESP 18; TEMP 97.8
--- NOTE | 2021-11-20 14:49 | P.PAINPG ---
Objective - Vital Signs Vital signs: Vital Signs Temp 97.8 F 11/20/21 13:51 Pulse 56 L 11/20/21 13:51 Resp 18 11/20/21 13:51 BP 145/85 11/20/21 13:51 Pulse Ox 98 11/20/21 13:51 FiO2 Intake & Output 11/19/21 11/20/21 11/20/21 18:59 06:59 18:59 Weight 127.006 kg PQRS Measure Charge Sheet Mode of Arrival: Ambulatory Comment: A 71 yr old male with a history of severe and chronic low back pain secondary to lumbar degenerative disc diseases and lumbar spondylosis with facet arthropathy without myelopathy presents today for evaluation s/p L intraarticular hip injection. Pt states he experienced 100% pain relief x 3 wks s/p procedure Pain level is currently at 0/10 in intensity. Pain is provoked by overactivity. Pain is alleviated with injections. Interventional pain procedures completed include L intraarticular hip injection Patient denies any side effects of the medication(s), denies excessive drowsiness or sleepiness, denies suicidal ideation and reports that the current pain medication is helping to control the pain and improve activities of daily living. Patient denies any motor or sensory deficits. Patient denies any fever or night sweats, denies any change in the bowel movements or urination. Physical Examination: -Constitutional: Cooperative. Not in acute distress . - Neurologic: Cranial nerve II to XII intact. No focal neurological deficits. - Psychatric: Alert & oriented x 3. Matching mood & appropriate affect. Judgment and insight intact. - Musculoskeletal: Cervical spine: Muscle bulk/ tone/ strength in the bilateral upper extremities normal Vertebral body tenderness to palpation over Spurling test positive Distraction test positive Facet loading test positive Thoracic spine Muscle bulk / tone/ strength in the bilateral paraspinal muscles normal Vertebral body tender to palpation over Facet loading test positive Lumbar spine: Motor bulk/ tone/ strength lower extremities , thigh and legs : 5/5 Deep tendon reflexes : Normal Knee Jerk. Normal Ankle Jerk . Vertebral body tenderness to palpation over Lumbar Facet Loading Test positive Straight Leg Raise: positive at 30 degrees right side/ left side Gaenslen's Test positive Sacral spine : Severe tenderness over the Sacroiliac joint: right side / left side Range of motion: Flexion of the lumbar spine <60 degrees Range of motion: Extension of the lumbar spine <20 degrees Gaenslen's Test positive Brant's Test positive Shanna test: positive right side / left side Thigh Thrust Test Sacral Thrust Test Assessment and plan: Chronic low back pain secondary to lumbar degenerative disc disease , lumbar spondylosis with facet arthropathy without myelopathy Pt exhibited optimal and sufficient pain relief w procedure. He will manage residual pain w home pain mgmt modalities and may return to our clinic on an as needed basis. All patient questions answered I have spent less than 30 minutes on patient care today. Dr Colin was available by phone for the evaluation of this patient. The time was used to review the medical records including relevant urine studies and Prescription history (MAPs), review of the available imaging, evaluation and examination of the patient, coordination of care with the medical staff and if applicable referring physicians, as well as creation of the medical record PQRS Narrative: Smoking Status Former smoker Blood Pressure 145/85 Pain Intensity [Left Hip] 0 Scale Used Numeric (1 - 10) Hx Alcohol Use (MH) No Home Medications: Ambulatory Orders Aspirin EC [Ecotrin Low Dose] 81 mg PO DAILY 12/28/14 Metoprolol Tartrate 25 mg PO QAM 12/28/14 Atorvastatin [Lipitor] 80 mg PO DAILY 03/22/16 Venlafaxine HCl ER [Effexor XR] 37.5 mg PO DAILY 07/10/18 Omeprazole 20 mg PO DAILY 11/18/18 Ibuprofen 800 mg PO Q8H PRN 05/15/19 Isosorbide Mononitrate ER [Imdur] 30 mg PO DAILY 06/03/19 metFORMIN HCL [Glucophage] 1,000 mg PO BID 06/03/19 Ezetimibe [Zetia] 10 mg PO DAILY 06/02/20 Controlled Substance Measures - Controlled Substance Measures Is patient prescribed a controlled substance at discharge?: No
== END | disposition home or self-care (01) ==
LOC: PNWHC3 13:40
PROVIDERS: ATTEND Specialist
DX: M47.896 Other spondylosis, lumbar region (principal); M51.36 Other intervertebral disc degeneration, lumbar region
CPT/HCPCS: 99211

== ENCOUNTER → 2021-11-23 | Outpatient (CLI) | payer MEDICARE, BC ==
--- NOTE | 2021-11-23 13:13 | XR ---
EXAMINATION TYPE: XR KUB DATE OF EXAM: 11/23/2021 Comparison: 12/08/2018 Clinical History: 71-year-old male [id number], N200 LBP, KIDNEY CALC Findings: Phlebolith left pelvis is unchanged. Mild stool present predominantly in the right side of the abdome n. Prominent small bowel loops measuring up to 3.8 cm and the left side of the abdomen. These are non specific and could be transient. No suspicious calcification seen. Possible subtle 4 mm calculus left mid abdomen. Impression: 1. A few mildly dilated small bowel loops in the left side of the abdomen measuring up to 3.8 cm. The se may be transient or could reflect underlying enteritis or ileus. Clinically correlate. 2. Possible 4 mm left renal calculus. 3. A calcification/phlebolith in the left side of the pelvis is unchanged from 2019.
== END | disposition home or self-care (01) ==
LOC: RADXRYALE 11:40
PROVIDERS: ATTEND Physician Assistant
DX: M54.59 Other low back pain (principal); N20.0 Calculus of kidney
CPT/HCPCS: 74018

== ENCOUNTER → 2021-12-08 | Outpatient (CLI) | payer MEDICARE, BC ==
--- NOTE | 2021-12-09 14:29 | US ---
EXAMINATION TYPE: US kidneys/renal and bladder DATE OF EXAM: 12/08/2021 COMPARISON: NONE CLINICAL HISTORY: R300 DYSURIA. known cysts, pain on the right EXAM MEASUREMENTS: Right Kidney: 14.3 x 6.6 x 7.8 cm Left Kidney: 12.7 x 8.6 x 7.5 cm Right Kidney: large cyst seen = 8.0 x 9.2 x 7.5cm Left Kidney: large cyst seen = 7.6 x 6.5 x 7.1cm Bladder: wnl Bilateral Jets seen: yes IMPRESSION: Large bilateral renal cysts
== END | disposition home or self-care (01) ==
LOC: RADUSWWP 16:14
PROVIDERS: ATTEND Family Medicine
DX: N28.1 Cyst of kidney, acquired (principal)
CPT/HCPCS: 76770

== ENCOUNTER → 2021-12-22 | Outpatient (CLI) | payer MEDICARE, BC ==
--- NOTE | 2021-12-22 14:14 | CT ---
EXAMINATION TYPE: CT abdomen pelvis wo con DATE OF EXAM: 12/22/2021 COMPARISON: 02/24/2020 INDICATION: Right sided flank pain. DLP: 1443.5 mGycm, Automated exposure control for dose reduction was used. CONTRAST: mL of . Study performed without Oral Contrast TECHNIQUE: Axial images were obtained from above the diaphragm to the pubic rami in the axial plane a t 5 mm thick sections. Reconstructed images are reviewed on the computer in the coronal plane. FINDINGS: Limited CT sections are obtained the lung bases. The lung bases are clear. CT ABDOMEN: Liver: Normal Spleen: Normal Pancreas: Normal Adrenal glands: The adrenal glands are normal. Gallbladder: Normal Kidneys: No masses are evident. No hydronephrosis is present. Adrenal cysts are present including a n 8.4 cm cyst on the posterior mid left kidney and an anterior 9.6 cm cyst mid right kidney. Upper po le nonobstructing renal stone is present on the right patient 0.3 cm. Delayed images were obtained t hrough the kidneys, which remain unremarkable. Aorta: Vascular calcification is within the aorta. Inferior vena cava: Normal. CT PELVIS: Loops of bowel within the abdomen and pelvis are normal. This study is without oral contrast limi ting bowel evaluation. Appendix: Normal as visualized. Urinary bladder: Decompressed limiting evaluation. Genitourinary structures: Prostate appears unremarkable Osseous structures: No suspicious lytic or sclerotic lesions. IMPRESSIONS: 1. Nonobstructing right renal stone. 2. Bilateral large renal cysts.
== END | disposition home or self-care (01) ==
LOC: RADCTMAIN 12:42
PROVIDERS: ATTEND Urology
DX: N20.0 Calculus of kidney (principal); N28.1 Cyst of kidney, acquired
CPT/HCPCS: 74176

== ENCOUNTER → 2021-12-25 | Outpatient (CLI) | payer MEDICARE, BC ==
--- NOTE | 2021-12-25 13:04 | XR ---
EXAMINATION TYPE: XR cervical spine limited DATE OF EXAM: 12/25/2021 TECHNIQUE: Frontal, lateral, swimmers, and open mouth view of the cervical spine are obtained. HISTORY: M50.30 cervicalgia COMPARISON: Cervical spine x-ray 2014 FINDINGS: The cervical spine is visualized in its entirety from C1 thru the top of T1 level, there i s now grade 1 anterolisthesis C2 on C3 and grade 1 retrolisthesis C3 on C4. Anterior fusion plate wit h artificial disc material C4-C7 levels as better visualized. Large anterior spurs C3-C4 level are ag ain seen. Prevertebral soft tissue appears within normal limits. C1-C2 articulation within normal polk its on the frontal images. Overlying soft tissue is unremarkable. IMPRESSION: As above.
[2021-12-25 13:07] VITALS: BP 147/77; PULSE 53; RESP 18; TEMP 97.8
--- NOTE | 2021-12-25 14:40 | P.PAINPG ---
PQRS Measure Charge Sheet Comment: A 71 yr old male with a history of severe and chronic neck pain secondary to cervical DDD and spondylosis with facet arthropathy without myelopathy presents today for neck pain. Pain level is currently at 9 /10 in intensity, constant, localized in lwoer cervcial spine, achy in charcter w shooting towards BL shoulders and BUEs. Pain is provoked by laying on his side. Pain is alleviated with meds (Ibu, Tyl) which were ineffective, topicals are ineffective, heat which was minimally effective, repositioning and rest. Interventional pain procedures completed include Denies Patient is currently on Denies Patient denies any side effects of the medication(s), denies excessive drowsiness or sleepiness, denies suicidal ideation and reports that the current pain medication is helping to control the pain and improve activities of daily living. Patient denies any motor or sensory deficits. Patient denies any fever or night sweats, denies any change in the bowel movements or urination. Physical Examination: -Constitutional: Cooperative. Not in acute distress . - Neurologic: Cranial nerve II to XII intact. No focal neurological deficits. - Psychatric: Alert & oriented x 3. Matching mood & appropriate affect. Judgment and insight intact. - Musculoskeletal: Cervical spine: Muscle bulk/ tone/ strength in the bilateral upper extremities normal Vertebral body tenderness to palpation Spurling test positive Distraction test positive Facet loading test positive jump reflex over BL C5-C6 facets Thoracic spine Muscle bulk / tone/ strength in the bilateral paraspinal muscles normal Vertebral body tender to palpation over Facet loading test positive Lumbar spine: Motor bulk/ tone/ strength lower extremities , thigh and legs : 5/5 Deep tendon reflexes : Normal Knee Jerk. Normal Ankle Jerk . Vertebral body tenderness to palpation over Lumbar Facet Loading Test positive Straight Leg Raise: positive at 30 degrees right side/ left side Gaenslen's Test positive Sacral spine : Severe tenderness over the Sacroiliac joint: right side / left side Range of motion: Flexion of the lumbar spine <60 degrees Range of motion: Extension of the lumbar spine <20 degrees Gaenslen's Test positive Shanna test: positive right side / left side Thigh Thrust Test Sacral Thrust Test Assessment and plan: Chronic neck pain secondary to cervical degenerative disc disease, spondylosis with facet arthropathy without myelopathy Recommendation of x ray cervical spine re: M50.30. May need additional testing if indicated. Script for Jolancer.5/325mg # 60 filled. Narcotic and opiate /agreement signed today 12/25/21 Risks, benefits of procedure discussed and pt verbalized understanding. Denies anticoagulant use or medical history of diabetes. All patient questions answered I have spent less than 30 minutes on patient care today. Dr Colin was available by phone for the evaluation of this patient. The time was used to review the medical records including relevant urine studies and Prescription history (MAPs), review of the available imaging, evaluation and examination of the patient, coordination of care with the medical staff and if applicable referring physicians, as well as creation of the medical record PQRS Narrative: Smoking Status Former smoker Hx Alcohol Use (MH) No Home Medications: Ambulatory Orders Aspirin EC [Ecotrin Low Dose] 81 mg PO DAILY 12/28/14 Metoprolol Tartrate 25 mg PO QAM 12/28/14 Atorvastatin [Lipitor] 80 mg PO DAILY 03/22/16 Venlafaxine HCl ER [Effexor XR] 37.5 mg PO DAILY 07/10/18 Omeprazole 20 mg PO DAILY 11/18/18 Ibuprofen 800 mg PO Q8H PRN 05/15/19 Isosorbide Mononitrate ER [Imdur] 30 mg PO DAILY 06/03/19 metFORMIN HCL [Glucophage] 1,000 mg PO BID 06/03/19 Ezetimibe [Zetia] 10 mg PO DAILY 06/02/20 HYDROcodone/APAP 7.5-325MG [[place] 7.5-325] 1 tab PO Q12H PRN 30 Days #60 tab 12/25/21 Controlled Substance Measures - Controlled Substance Measures Is patient prescribed a controlled substance at discharge?: Yes When asked, does pt state using other controlled substances?: No If prescribed controlled substance>3 days was MAPS reviewed?: Yes If Rx opioid, was Start Talking consent form obtained?: Yes Was information provided regarding opioid addiction?: Yes
== END ==
LOC: PNWHC3 11:29
PROVIDERS: ATTEND Specialist
DX: M47.812 Spondylosis without myelopathy or radiculopathy, cervical region (principal); M51.36 Other intervertebral disc degeneration, lumbar region; G89.29 Other chronic pain; Z87.891 Personal history of nicotine dependence; Z88.5 Allergy status to narcotic agent
CPT/HCPCS: 72040; G0463; 99211

== ENCOUNTER → 2022-01-08 | Outpatient (CLI) | payer MEDICARE, BC ==
[2022-01-08 13:03] VITALS: BP 150/75; PULSE 54; RESP 18; TEMP 98.6
--- NOTE | 2022-01-08 15:38 | P.PAINPG ---
PQRS Measure Charge Sheet Comment: A 71 yr old male with a history of severe and chronic neck pain secondary to cervical DDD and spondylosis with facet arthropathy without myelopathy presents today for MRI cervical spine results. Pain level is currently at 9/10 in intensity, constant, localized in the mid to lower cervical spine, dull/ achy in character w shooting towards the BL shoulders. Pain is provoked by lifting. Pain is alleviated with medications (Medora prn), repositioning and rest. Interventional pain procedures completed include BETO x1 Patient is currently on Medora Patient denies any side effects of the medication(s), denies excessive drowsiness or sleepiness, denies suicidal ideation and reports that the current pain medication is helping to control the pain and improve activities of daily living. Patient denies any motor or sensory deficits. Patient denies any fever or night sweats, denies any change in the bowel movements or urination. Physical Examination: -Constitutional: Cooperative. Not in acute distress . - Neurologic: Cranial nerve II to XII intact. No focal neurological deficits. - Psychatric: Alert & oriented x 3. Matching mood & appropriate affect. Judgment and insight intact. - Musculoskeletal: Cervical spine: Muscle bulk/ tone/ strength in the bilateral upper extremities normal Vertebral body tenderness to palpation over C6 Spurling test positive over C6 Distraction test positive Facet loading test positive Thoracic spine Muscle bulk / tone/ strength in the bilateral paraspinal muscles normal Vertebral body tender to palpation over Facet loading test positive Lumbar spine: Motor bulk/ tone/ strength lower extremities , thigh and legs : 5/5 Deep tendon reflexes : Normal Knee Jerk. Normal Ankle Jerk . Vertebral body tenderness to palpation over Lumbar Facet Loading Test positive Straight Leg Raise: positive at 30 degrees right side/ left side Gaenslen's Test positive Sacral spine : Severe tenderness over the Sacroiliac joint: right side / left side Range of motion: Flexion of the lumbar spine <60 degrees Range of motion: Extension of the lumbar spine <20 degrees Gaenslen's Test positive Shanna test: positive right side / left side Thigh Thrust Test Sacral Thrust Test Imaging: MRI without contrast of the cervical spine from 01/01/22 reviewed. Assessment and plan: Chronic neck pain secondary to cervical degenerative disc disease, spondylosis with facet arthropathy without myelopathy Recommendation of CHLOE C6-C7. May need a series of injections, up to 3 within a 6 mo period, for optimal pain relief. Risks, benefits of procedure discussed and pt verbalized understanding. Admits to anticoagulant use or medical history of diabetes. Protocol for discontinuation/ continuation of medications arianne procedure discussed. All patient questions answered I have spent less than 30 minutes on patient care today. Dr Colin was available by phone for the evaluation of this patient. The time was used to review the medical records including relevant urine studies and Prescription history (MAPs), review of the available imaging, evaluation and examination of the patient, coordination of care with the medical staff and if applicable referring physicians, as well as creation of the medical record - Pain Location Neck Non-Pharmacological Interventions: Position/Reposition Pharmacological Interventions: PRN Medication PQRS Narrative: Smoking Status Former smoker Hx Alcohol Use (MH) No Home Medications: Ambulatory Orders Aspirin EC [Ecotrin Low Dose] 81 mg PO DAILY 12/28/14 Metoprolol Tartrate 25 mg PO QAM 12/28/14 Atorvastatin [Lipitor] 80 mg PO DAILY 03/22/16 Venlafaxine HCl ER [Effexor XR] 37.5 mg PO DAILY 07/10/18 Omeprazole 20 mg PO DAILY 11/18/18 Ibuprofen 800 mg PO Q8H PRN 05/15/19 Isosorbide Mononitrate ER [Imdur] 30 mg PO DAILY 06/03/19 metFORMIN HCL [Glucophage] 1,000 mg PO BID 06/03/19 Ezetimibe [Zetia] 10 mg PO DAILY 06/02/20 HYDROcodone/APAP 7.5-325MG [Med[place] 7.5-325] 1 tab PO Q12H PRN 30 Days #60 tab 12/25/21 Controlled Substance Measures - Controlled Substance Measures Is patient prescribed a controlled substance at discharge?: No
== END ==
LOC: PNWHC3 12:39
PROVIDERS: ATTEND Specialist
DX: M47.812 Spondylosis without myelopathy or radiculopathy, cervical region (principal); M50.30 Other cervical disc degeneration, unspecified cervical region; G89.29 Other chronic pain; Z79.01 Long term (current) use of anticoagulants; E11.9 Type 2 diabetes mellitus without complications; Z88.5 Allergy status to narcotic agent; Z87.891 Personal history of nicotine dependence; Z79.84 Long term (current) use of oral hypoglycemic drugs
CPT/HCPCS: 99211

== ENCOUNTER 2022-02-08 11:41 | Day surgery (SDC) | payer MEDICARE, BC ==
[2022-02-08 12:16] VITALS: RESP 16; TEMP 96.9
[2022-02-08 12:28] LABS: Glucose,Whole Blood 177 mg/dL (70-110)
[2022-02-08] MEDS ORDERED: LACTATED RINGERS 1,000 ML IV SCH (12:30)
[2022-02-08] MEDS ORDERED: DEXAMETHASONE SOD PHOSPHATE 10 MG/ML 1 ML VIAL ONE (12:40)
[2022-02-08] MEDS ORDERED: IOPAMIDOL M200 10 ML VIAL ONE (12:40)
--- NOTE | 2022-02-08 12:53 | P.PCN ---
Date of Procedure: 02/08/22 Description of Procedure: PROCEDURE 1. Cervical epidural steroid injection under fluoroscopic guidance, C7-T1 left paramedian approach. 2. Cervical epidurogram. : PREOPERATIVE DIAGNOSIS: Cervical post-fusion pain syndrome, cervical degenerative disc disease POSTOPERATIVE DIAGNOSIS: : Same as above ANESTHESIA: Local only anesthesia with 1% lidocaine EBL 0 PROCEDURE INDICATION: The patient with neck pain and radiculopathy unresponsive to conservative treatment consents for procedure. PROCEDURE DESCRIPTION / TECHNIQUE: The patient was seen and identified in the preoperative area. Risks, benefits, complications, including but not limited to infections ,bleeding , allergic reactions to the medications ,and not complete pain relief, and alternatives were discussed with the patient, the patient agreed to proceed with the procedure and signed the consent. The patient stopped his aspirin yesterday. Patient was taken to the OR and time out was completed. The patient was placed in the prone position on the procedure table. A pillow was placed under the patients chest to increase the flexion of the cervical spine . The cervical area was prepped and draped in the usual sterile fashion. Vital signs were closely monitored during the procedure. Conscious sedation was used during the procedure to decrease patients anxiety. Using anterior-posterior fluoroscopy, the C7-T1 interlaminar space was identified and the skin over this site was marked and then infiltrated with 1% l idocaine subcutaneously. Subsequently, a 20-gauge 3-1/2-inch Tuohy epidural needle was inserted and advanced toward the epidural space by means of loss of resistance to air technique and guided by AP and lateral fluoroscopy. The needle tip contacted the lamina of T1 vertebra first, then it was walked off bone and into the epidural space using the loss of to air and fluoroscopic guidance to identify the epidural space. The correct needle position in the epidural space was verified with the injection of 1 mL of the water soluble contrast dye Isovue and observing an excellent epidurogram with the epidural spread of the dye, after negative aspiration for blood and CSF and in the absence of paresthesias. Again after negative aspiration, a 3 ml mixture containing 10 mg of Decadron and 1 ml of preservative free Normal Saline solution was injected and a washout of epidurogram was seen. Needle was withdrawn intact, skin was cleansed, and bandages were applied. A copy of the needle placement picture was saved to the fluoroscopy machine.
[2022-02-08 13:10] VITALS: BP 124/75; PULSE 51
--- NOTE | 2022-02-08 16:26 | FL ---
Fluoroscopy INDICATION: Pain FINDINGS: Fluoroscopy time: 15 seconds. Images obtained: One. IMPRESSIONS: 1. Documentation of fluoroscopy.
== END 2022-02-08 13:24 | disposition home or self-care (01) ==
LOC: ORPAIN 11:41
PROVIDERS: ATTEND Anesthesiology
DX: M50.13 Cervical disc disorder with radiculopathy, cervicothoracic region (principal); Z88.5 Allergy status to narcotic agent
CPT/HCPCS: 62321; J1100; Q9966

== ENCOUNTER → 2022-03-07 | Outpatient (CLI) | payer MEDICARE, BC ==
[2022-03-07 14:32] VITALS: BP 149/85; PULSE 55; RESP 18; TEMP 98.4
--- NOTE | 2022-03-07 14:44 | P.PAINPG ---
PQRS Measure Charge Sheet Comment: A 71 yr old male with a history of severe and chronic neck & back pain secondary to cervical & lumbar DDD and spondylosis with facet arthropathy without myelopathy presents today for evaluation s/p L paramedian HCLOE C7-T1. Pt states he experienced 50 % pain relief x 4 wks s/p procedure. Pain level is provoked at 8/10 in intensity, constant, localized in the cervical spine, achy/ sharp/ in character w shooting towards his R buttocks. Pain is provoked by standing from a sitting position. Pain is alleviated with PT years ago, use of a TENS unit, alternating heat & ice, medications (Ibu, Tyl, Biofreeze gel), repositioning and rest. Interventional pain procedures completed include L paramedian CHLOE C7-T1 Patient is currently on Ibu, Tyl, Biofreeze gel Patient denies any side effects of the medication(s), denies excessive drowsiness or sleepiness, denies suicidal ideation and reports that the current pain medication is helping to control the pain and improve activities of daily living. Patient denies any motor or sensory deficits. Patient denies any fever or night sweats, denies any change in the bowel movements or urination. Physical Examination: -Constitutional: Cooperative. Not in acute distress . - Neurologic: Cranial nerve II to XII intact. No focal neurological deficits. - Psychatric: Alert & oriented x 3. Matching mood & appropriate affect. Judgment and insight intact. - Musculoskeletal: Cervical spine: Muscle bulk/ tone/ strength in the bilateral upper extremities normal Vertebral body tenderness to palpation over Spurling test positive Distraction test positive Facet loading test positive Thoracic spine Muscle bulk / tone/ strength in the bilateral paraspinal muscles normal Vertebral body tender to palpation over Facet loading test positive Lumbar spine: Motor bulk/ tone/ strength lower extremities , thigh and legs : 5/5 Deep tendon reflexes : Normal Knee Jerk. Normal Ankle Jerk . Vertebral body tenderness to palpation over L4, L5 Lumbar Facet Loading Test positive Straight Leg Raise: positive at 30 degrees right side/ left side Gaenslen's Test positive Sacral spine : Severe tenderness over the Sacroiliac joint: right side / left side Range of motion: Flexion of the lumbar spine <60 degrees Range of motion: Extension of the lumbar spine <20 degrees Gaenslen's Test positive Shanna test: positive right side / left side Thigh Thrust Test Sacral Thrust Test Imaging: MRI.contrast of the lumbar spine from 06/17/15 reviewed Assessment and plan: Chronic LBP secondary to DDD, spondylosis with facet arthropathy without myelopathy Recommendation of repeat imaging. Lumbar x ray script provided re: M51.36 May need additional testing if indicated. Return to clinic within 2-3 wks for a re evaluation. Risks, benefits of procedure discussed and pt verbalized understanding. Denies anticoagulant use or medical history of diabetes. All patient questions answered I have spent less than 30 minutes on patient care today. Dr Colin was available by phone for the evaluation of this patient. The time was used to review the medical records including relevant urine studies and Prescription history (MAPs), review of the available imaging, evaluation and examination of the patient, coordination of care with the medical staff and if applicable referring physicians, as well as creation of the medical record PQRS Narrative: Smoking Status Former smoker Hx Alcohol Use (MH) No Home Medications: Ambulatory Orders Aspirin EC [Ecotrin Low Dose] 81 mg PO DAILY 12/28/14 Metoprolol Tartrate 25 mg PO QAM 12/28/14 Atorvastatin [Lipitor] 80 mg PO DAILY 03/22/16 Venlafaxine HCl ER [Effexor XR] 37.5 mg PO Q2D 07/10/18 Omeprazole 20 mg PO DAILY 11/18/18 Isosorbide Mononitrate ER [Imdur] 30 mg PO DAILY 06/03/19 metFORMIN HCL [Glucophage] 1,000 mg PO BID 06/03/19 Ezetimibe [Zetia] 10 mg PO DAILY 06/02/20 Controlled Substance Measures - Controlled Substance Measures Is patient prescribed a controlled substance at discharge?: No
--- NOTE | 2022-03-07 14:58 | XR ---
EXAMINATION TYPE: XR lumbar spine 2 or 3V DATE OF EXAM: 03/07/2022 CLINICAL HISTORY: Chronic low back pain TECHNIQUE: Three views of the lumbar spine are submitted. COMPARISON: CT abdomen and pelvis 12/22/2021, lumbar spine 08/07/2019 FINDINGS: There are 5 lumbar type vertebral bodies identified. Pedicles are intact. The lumbar spine shows sati sfactory alignment without evidence of acute fracture or dislocation. Vertebral body heights are with in normal limits. Degenerative disc disease changes are present at L5-S1 and posteriorly L3-L4 and L4-L5. There is some disc space narrowing at L1-L2. Multilevel facet arthropathy. The overlying soft tissue appears unremarkable. Vascular calcification is redemonstrated of the aorta. The aorta measur es up to 4.2 cm. IMPRESSION: 1. No acute fracture or dislocation is seen in the lumbar spine. 2. Moderate multilevel degenerative disc disease. 3. Abdominal aortic aneurysm measuring up to 4.2 cm.
== END ==
LOC: PNWHC3 13:50
PROVIDERS: ATTEND Specialist
DX: M47.816 Spondylosis without myelopathy or radiculopathy, lumbar region (principal); M51.36 Other intervertebral disc degeneration, lumbar region; Z88.5 Allergy status to narcotic agent; Z87.891 Personal history of nicotine dependence
CPT/HCPCS: 72100; G0463; 99211

== ENCOUNTER → 2022-03-14 | Outpatient (CLI) | payer MEDICARE, BC ==
--- NOTE | 2022-03-15 04:13 | MR ---
EXAMINATION TYPE: MR lumbar spine wo con DATE OF EXAM: 03/14/2022 COMPARISON: None HISTORY: Low back pain Multiplanar multiecho imaging of the lumbar spine performed with no contrast. The vertebral abnormal alignment. There is no compression fracture. There is mild disc space narrowin g throughout the lumbar spine. The neural foramina are fairly well maintained. No spinal stenosis. No focal bone destruction. There is no lumbar paraspinal mass. The sacroiliac joints appear intact. There is anterior mild disc herniations from L3 to S1. IMPRESSION: Multilevel spondylotic changes. No evidence of spinal stenosis. No significant posterior lumbar disc herniation. No fracture. No significant change compared to old exam.
== END | disposition home or self-care (01) ==
LOC: RADMRIMAIN 19:47
PROVIDERS: ATTEND Physician Assistant Medical
DX: M47.816 Spondylosis without myelopathy or radiculopathy, lumbar region (principal); M51.36 Other intervertebral disc degeneration, lumbar region
CPT/HCPCS: 72148

== ENCOUNTER → 2022-05-02 | Outpatient (CLI) | payer MEDICARE, BC ==
[2022-05-02 14:33] VITALS: BP 126/82; PULSE 54; RESP 18; TEMP 98.3
--- NOTE | 2022-05-02 14:54 | P.PAINPG ---
PQRS Measure Charge Sheet Comment: A 71 yr old male with a history of severe and chronic neck pain secondary to cervical DDD and spondylosis with facet arthropathy without myelopathy presents today for evaluation s/p CHLOE C6-C7. Pt states he experienced 50 % pain relief x 4 wks s/p procedure. Pain level is provoked at 7 /10 in intensity, intermittent, localized in the L hipspine, achy in character w/o shooting pain. Pain is provoked by weight bearing activity, standing from a sitting position. Pain is alleviated with injections, chiropractic treatments years ago, massage at home use of TENS unit at home, repositioning and rest. Interventional pain procedures completed include CHLOE C6-C7 Patient is currently on DENIES Patient denies any side effects of the medication(s), denies excessive drowsiness or sleepiness, denies suicidal ideation and reports that the current pain medication is helping to control the pain and improve activities of daily living. Patient denies any motor or sensory deficits. Patient denies any fever or night sweats, denies any change in the bowel movements or urination. Physical Examination: -Constitutional: Cooperative. Not in acute distress . - Neurologic: Cranial nerve II to XII intact. No focal neurological deficits. - Psychatric: Alert & oriented x 3. Matching mood & appropriate affect. Judgment and insight intact. - Musculoskeletal: Cervical spine: Muscle bulk/ tone/ strength in the bilateral upper extremities normal Vertebral body tenderness to palpation over Spurling test positive Distraction test positive Facet loading test positive TTP Thoracic spine Muscle bulk / tone/ strength in the bilateral paraspinal muscles normal Vertebral body tender to palpation over Facet loading test positive TTP Lumbar spine: +L tenderness w abduction/ adduction Motor bulk/ tone/ strength lower extremities , thigh and legs : 5/5 Deep tendon reflexes : Normal Knee Jerk. Normal Ankle Jerk . Vertebral body tenderness to palpation over Lumbar Facet Loading Test positive Straight Leg Raise: positive at 30 degrees right side/ left side Gaenslen's Test positive Sacral spine : Severe tenderness over the Sacroiliac joint: right side / left side Range of motion: Flexion of the lumbar spine <60 degrees Range of motion: Extension of the lumbar spine <20 degrees Gaenslen's Test positive R / L Shanna test: positive right side / left side Thigh Thrust Test positive R / L Sacral Thrust Test positive R/ L Assessment and plan: Chronic L hip pain secondary to trochanteric bursitis Recommendation of L trochanteric bursa injection. May need a series for optimal pain relief. Risks, benefits of procedure discussed and pt verbalized understanding. Admits to anticoagulant use or medical history of diabetes. Protocol for discontinuation/ continuation of medications arainne procedure discussed. All questions answered. I have spent less than 30 minutes on patient care today. Dr Colin was available by phone for the evaluation of this patient. The time was used to review the medical records including relevant urine studies and Prescription history (MAPs), review of the available imaging, evaluation and examination of the patient, coordination of care with the medical staff and if applicable referring physicians, as well as creation of the medical record PQRS Narrative: Smoking Status Former smoker Hx Alcohol Use (MH) No Home Medications: Ambulatory Orders Aspirin EC [Ecotrin Low Dose] 81 mg PO DAILY 12/28/14 Metoprolol Tartrate 25 mg PO QAM 12/28/14 Atorvastatin [Lipitor] 80 mg PO DAILY 03/22/16 Venlafaxine HCl ER [Effexor XR] 37.5 mg PO Q2D 07/10/18 Omeprazole 20 mg PO DAILY 11/18/18 Isosorbide Mononitrate ER [Imdur] 30 mg PO DAILY 06/03/19 metFORMIN HCL [Glucophage] 1,000 mg PO BID 06/03/19 Ezetimibe [Zetia] 10 mg PO DAILY 06/02/20 Controlled Substance Measures - Controlled Substance Measures Is patient prescribed a controlled substance at discharge?: No
== END ==
LOC: PNWHC3 14:00
PROVIDERS: ATTEND Specialist
DX: M70.62 Trochanteric bursitis, left hip (principal); Z88.5 Allergy status to narcotic agent; Z87.891 Personal history of nicotine dependence; Z79.82 Long term (current) use of aspirin
CPT/HCPCS: 99211

== ENCOUNTER 2022-05-24 12:41 | Day surgery (SDC) | payer MEDICARE, BC ==
[~2022-05-24 12:41] MED LIST changes: +LIDOCAINE 1% (10MG/ML) FOR IV START INTRADERMA PRN
[2022-05-24 13:15] VITALS: TEMP 97
[2022-05-24 13:15] LABS: Glucose,Whole Blood 227 mg/dL (70-110)
[2022-05-24] MEDS ORDERED: INSULIN ASPART (NovoLOG) 100 UNIT/ML VIAL SQ ONE (13:22)
[2022-05-24] MEDS ORDERED: methylPREDNISolone ACETATE 40 MG/ML 1 ML VIAL ONE (13:34)
[2022-05-24] MEDS ORDERED: IOPAMIDOL M200 10 ML VIAL ONE (13:34)
[2022-05-24] MEDS ORDERED: ROPIVACAINE 5 MG/ML 20 ML AMPULE ONE (13:34)
--- NOTE | 2022-05-24 13:49 | P.PCN ---
Date of Procedure: 05/24/22 Procedure(s) Performed: Preoperative diagnoses: 1. Left hip osteoarthritis. 2-left trochanteric bursitis Postoperative diagnoses: 1. Left hip osteoarthritis, 2-left trochanteric bursitis Procedure: Left hip intra-articular steroid injection under fluoroscopy Anesthesia: Local anesthesia with lidocaine 1% 3 mL only Description of the procedure: Patient was seen and identified in the preoperative holding area, risk and benefits, complications ,and alternatives of the procedure were discussed with the patient and patient agreed with the preceding, patient signed the consent , and vital signs were monitored throughout the procedure and it was stable. The patient was taken to the operating room and placed in supine position the groin area was prepped with chlorhexidine 3 and draped with the standard fashion. Local anesthetic was used with lidocaine 1% then using 25 -gauge needle, under direct fluoroscopy and anterior posterior image of the hip joint was ascertained. A 22-gauge Quincke 5 inches long needle was then advanced to the femoral neck until contact with bone was made. After negative aspiration for blood, 3 mL of Omnipaque was then injected to confirm placement of needle into the joint capsule. Once correct position was confirmed and after negative aspiration for blood, a solution consisting of 5 ML's of 0.5% Marcaine with 40 mg/1 mL of Depo-Medrol was administered. A washout image was then obtained to confirm adequate spread within the joint capsule. Needle was removed, and a Band-Aid was placed. Patient tolerated procedure well with no complications Disposition: We'll see patient in clinic in 2-3 weeks' time to assess efficacy. note= patient was scheduled to have left side the trochanteric bursitis but in the preop holding area he reported that he had pain with hip joint movement, fle xion and extension of the left hip joint associated with pain and patient reported that last year when we did the left hip intra-articular steroid injection with excellent pain relief, for this reason , I did change the procedure to the left hip joint steroid injection will be reevaluated the patient response to the injection today ,
[2022-05-24 13:53] VITALS: BP 135/70; PULSE 50; RESP 16
[2022-05-24 13:58] LABS: Glucose,Whole Blood 194 mg/dL (70-110)
--- NOTE | 2022-05-24 15:48 | FL ---
Fluoroscopy INDICATION: Pain FINDINGS: Fluoroscopy time: 6 seconds. DAP: 0.45145 mGycm^2 Images obtained: 2. IMPRESSIONS: 1. Documentation of fluoroscopy.
== END 2022-05-24 14:10 | disposition home or self-care (01) ==
LOC: ORPAIN 12:41
PROVIDERS: ATTEND Specialist
DX: M16.12 Unilateral primary osteoarthritis, left hip (principal); M70.62 Trochanteric bursitis, left hip; Z88.8 Allergy status to other drugs, medicaments and biological substances
CPT/HCPCS: 20610; 77002; J1030; Q9966; J2795

== ENCOUNTER → 2022-06-14 | Outpatient (CLI) | payer MEDICARE, BC ==
--- NOTE | 2022-06-14 15:00 | P.PAINPG ---
PQRS Measure Charge Sheet Comment: A 71 yr old male with a history of severe and chronic LBP x yrs secondary to lumbar DDD and spondylosis with facet arthropathy without myelopathy presents today for evaluation s/p L trochanteric injection. Pt states he experienced 15% pain relief x 2 d s/p procedure. Pain level is provoked at 9/10 in intensity, constant, localized in the cervical spine, sharp in character w shooting towards the BL shoulders. Pain is provoked by lifting, laying in 1 position for periods of 20 min or more. Pain is alleviated with reclining, repositioning and rest. Admits to chiropractic treatments semi monthly x 3 mo in 2019 which were ineffective. Interventional pain procedures completed include L trochanteric injection, LESIs, BETO C6-C7 x2 Patient is currently on Tyl, Ibu Patient denies any side effects of the medication(s), denies excessive drowsiness or sleepiness, denies suicidal ideation and reports that the current pain medication is helping to control the pain and improve activities of daily living. Patient denies any motor or sensory deficits. Patient denies any fever or night sweats, denies any change in the bowel movements or urination. Physical Examination: -Constitutional: Cooperative. Not in acute distress . - Neurologic: Cranial nerve II to XII intact. No focal neurological deficits. - Psychatric: Alert & oriented x 3. Matching mood & appropriate affect. Judgment and insight intact. - Musculoskeletal: Cervical spine: Muscle bulk/ tone/ strength in the bilateral upper extremities normal Vertebral body tenderness to palpation over C6 TTP over BL C5-C7 paraspinal muscles Spurling test positive Distraction test positive Facet loading test positive TTP Thoracic spine Muscle bulk / tone/ strength in the bilateral paraspinal muscles normal Vertebral body tender to palpation over Facet loading test positive TTP Lumbar spine: Motor bulk/ tone/ strength lower extremities , thigh and legs : 5/5 Deep tendon reflexes : Normal Knee Jerk. Normal Ankle Jerk . Vertebral body tenderness to palpation over Lumbar Facet Loading Test positive Straight Leg Raise: positive at 30 degrees right side/ left side Gaenslen's Test positive Sacral spine : Severe tenderness over the Sacroiliac joint: right side / left side Range of motion: Flexion of the lumbar spine <60 degrees Range of motion: Extension of the lumbar spine <20 degrees Gaenslen's Test positive right side / left side Shanna test: positive right side / left side Thigh Thrust Test positive right side / left side Sacral Thrust Test positive right side / left side Assessment and plan: Chronic neck pain secondary to cervical DDD, spondylosis with facet arthropathy without myelopathy Recommendation of CHLOE C6-C7. May need a series of injections for optimal pain relief. Risks, benefits of procedure discussed and pt verbalized understanding. Admits to anticoagulant use or medical history of diabetes. Protocol for discontinuation/ continuation of medications arianne procedure discussed. All questions answered. I have spent less than 30 minutes on patient care today. Dr Colin was available by phone for the evaluation of this patient. The time was used to review the medical records including relevant urine studies and Prescription history (MAPs), review of the available imaging, evaluation and examination of the patient, coordination of care with the medical staff and if applicable referring physicians, as well as creation of the medical record PQRS Narrative: Smoking Status Former smoker Hx Alcohol Use (MH) No Home Medications: Ambulatory Orders Aspirin EC [Ecotrin Low Dose] 81 mg PO DAILY 12/28/14 Metoprolol Tartrate 25 mg PO QAM 12/28/14 Atorvastatin [Lipitor] 80 mg PO DAILY 03/22/16 Venlafaxine HCl ER [Effexor XR] 37.5 mg PO Q2D 07/10/18 Omeprazole 20 mg PO DAILY 11/18/18 Isosorbide Mononitrate ER [Imdur] 30 mg PO DAILY 06/03/19 metFORMIN HCL [Glucophage] 1,000 mg PO BID 06/03/19 Ezetimibe [Zetia] 10 mg PO DAILY 06/02/20 Controlled Substance Measures - Controlled Substance Measures Is patient prescribed a controlled substance at discharge?: No
[2022-06-14 15:53] VITALS: BP 144/86; PULSE 62; RESP 18; TEMP 97.6
== END ==
LOC: PNWHC3 14:06
PROVIDERS: ATTEND Specialist
DX: M50.323 Other cervical disc degeneration at C6-C7 level (principal); M47.812 Spondylosis without myelopathy or radiculopathy, cervical region; G89.29 Other chronic pain; Z87.891 Personal history of nicotine dependence; Z79.82 Long term (current) use of aspirin; Z79.84 Long term (current) use of oral hypoglycemic drugs; Z88.5 Allergy status to narcotic agent
CPT/HCPCS: 99211

== ENCOUNTER 2022-07-24 11:09 | Day surgery (SDC) | payer MEDICARE, BC ==
[2022-07-19 16:26] VITALS: BMI 36.3
[2022-07-24 12:00] LABS: Glucose,Whole Blood 152 mg/dL (70-110)
[2022-07-24 12:09] VITALS: RESP 16; TEMP 98.2
[2022-07-24] MEDS ORDERED: DEXAMETHASONE SOD PHOSPHATE 10 MG/ML 1 ML VIAL ONE (12:17)
[2022-07-24] MEDS ORDERED: IOPAMIDOL M200 10 ML VIAL ONE (12:17)
--- NOTE | 2022-07-24 12:24 | P.PCN ---
Date of Procedure: 07/24/22 Procedure(s) Performed: PROCEDURE 1. Cervical epidural steroid injection under fluoroscopic guidance, C6-7 (fluoroscopy images available in the radiology department ) 2. Cervical epidurogram. PREOPERATIVE DIAGNOSIS: 1- Cervical Degenerative Disc Diseases 2-cervical spondylosis with cervical Facet arthropathy without myelopathy POSTOPERATIVE DIAGNOSIS: : 1- Cervical Degenerative Disc Diseases , 2-cervical spondylosis with cervical Facet arthropathy without myelopathy ANESTHESIA: Local anesthesia with lidocaine 1 % 3 ml only. EBL 0 PROCEDURE INDICATION: The patient with neck pain and radiculitis unresponsive to conservative treatment consents for procedure. PROCEDURE DESCRIPTION / TECHNIQUE: The patient was seen and identified in the preoperative area. Risks, benefits, complications, including but not limited to infections ,bleeding , allergic reactions to the medications ,and not complete pain releife, and alternatives were discussed with the patient, the patient agreed to proceed with the procedure and signed the consent. Patient was taken to the OR and time out was completed. The patient was placed in the prone position on the procedure table. A pillow was placed under the patients chest to increase the cervical interlaminar space. The cervical area was prepped and draped in the usual sterile fashion. Vital signs were closely monitored during the procedure. Using anterior-posterior fluoroscopy, the C6-7 interlaminar space was identified and the skin over this site was marked and then infiltrated with 1% lidocaine subcutaneously. Subsequently, a 20-gauge 3-1/2-inch Tuohy epidural needle was inserted and advanced toward the epidural space by means of the ``hanging-drop technique and guided by AP and lateral fluoroscopy. The correct needle position in the epidural space was verified with the injection of 2 mL of the water soluble contrast dye [id number]-200 and observing an excellent epidurogram with the epidural spread of the dye, after negative aspiration for blood and CSF and in the absence of paresthesias. then , mixture containing 15 mg Dexamethasone and 2 ml of preservative-free normal saline injected and a washout of epidurogram was seen. Needle was withdrawn intact, skin was cleansed, and bandages were applied. Complications= none. Disposition= patient was placed in supine position and transferred to the recovery room area in stable condition and there was no evidence of upper or lower extremity motor or sensory deficit after the procedure patient was discharged from recovery room after discharge criteria met and home discharge instructions was given by the staff and patient will follow with the pain clinic in 2-4 weeks
--- NOTE | 2022-07-24 12:33 | FL ---
Intraoperative/procedural fluoroscopic services were provided for cervical epidural steroid injection . Total fluoroscopy time is 5 seconds with a total of 1 submitted image to PACS. Total DAP 0.05298 mG ym2. Please see the operative note for further details.
[2022-07-24 12:35] VITALS: PULSE 59
[2022-07-24 12:48] VITALS: BP 139/79
== END 2022-07-24 12:48 | disposition home or self-care (01) ==
LOC: ORPAIN 11:09
PROVIDERS: ATTEND Specialist
DX: M50.123 Cervical disc disorder at C6-C7 level with radiculopathy (principal); M47.26 Other spondylosis with radiculopathy, lumbar region; Z88.8 Allergy status to other drugs, medicaments and biological substances
CPT/HCPCS: 62321; J1100; Q9966

== ENCOUNTER → 2022-08-15 | Outpatient (CLI) | payer MEDICARE, BC ==
[2022-08-15 14:17] VITALS: BP 119/78; PULSE 59; RESP 18; TEMP 97.8
--- NOTE | 2022-08-15 15:31 | P.PAINPG ---
Objective - Vital Signs Vital signs: Intake & Output 08/14/22 08/15/22 08/15/22 18:59 06:59 18:59 Weight 124.738 kg PQRS Measure Charge Sheet Comment: A 71 yr old male with a history of severe and chronic R neck pain secondary to cervical DDD and spondylosis with facet arthropathy without myelopathy presents today for neck pain. Pain level is provoked at 8 /10 in intensity, constant, localized in the L cervical spine, achy/ sharp in character w shooting towards his R shoulder. Pain is provoked by lifting. Pain is alleviated with heat, ice, medications, repositioning and rest. Oswestry pain score at 23. Interventional pain procedures completed include DENIES Patient is currently on Tyl Patient denies any side effects of the medication(s), denies excessive drowsiness or sleepiness, denies suicidal ideation and reports that the current pain medication is helping to control the pain and improve activities of daily living. Patient denies any motor or sensory deficits. Patient denies any fever or night sweats, denies any change in the bowel movements or urination. Physical Examination: -Constitutional: Cooperative. Not in acute distress . - Neurologic: Cranial nerve II to XII intact. No focal neurological deficits. - Psychatric: Alert & oriented x 3. Matching mood & appropriate affect. Judgment and insight intact. - Musculoskeletal: Cervical spine: Muscle bulk/ tone/ strength in the bilateral upper extremities normal Vertebral body tenderness to palpation over C6 Spurling test positive Distraction test positive Facet loading test positive TTP Thoracic spine Muscle bulk / tone/ strength in the bilateral paraspinal muscles normal Vertebral body tender to palpation over Facet loading test positive TTP Lumbar spine: Motor bulk/ tone/ strength lower extremities , thigh and legs : 5/5 Deep tendon reflexes : Normal Knee Jerk. Normal Ankle Jerk . Vertebral body tenderness to palpation over Cifuentes Test positive Lumbar Facet Loading Test positive Straight Leg Raise: positive at 30 degrees right side/ left side Gaenslen's Test positive Sacral spine : Severe tenderness over the Sacroiliac joint: right side / left side Range of motion: Flexion of the lumbar spine <60 degrees Range of motion: Extension of the lumbar spine <20 degrees Gaenslen's Test positive right side / left side Shanna test: positive right side / left side Thigh Thrust Test positive right side / left side Sacral Thrust Test positive right side / left side Assessment and plan: Chronic LBP secondary to lumbar DDD, spondylosis with facet arthropathy without myelopathy Recommendation of PT x 6 wks re: M50.30. All questions answered. I have spent less than 30 minutes on patient care today. Dr Colin was available by phone for the evaluation of this patient. The time was used to review the medical records including relevant urine studies and Prescription history (MAPs), review of the available imaging, evaluation and examination of the patient, coordination of care with the medical staff and if applicable referring physicians, as well as creation of the medical record PQRS Narrative: Smoking Status Former smoker Hx Alcohol Use (MH) No Home Medications: Ambulatory Orders Aspirin EC [Ecotrin Low Dose] 81 mg PO DAILY 12/28/14 Metoprolol Tartrate 25 mg PO QAM 12/28/14 Atorvastatin [Lipitor] 80 mg PO DAILY 03/22/16 Venlafaxine HCl ER [Effexor XR] 37.5 mg PO Q2D 07/10/18 Omeprazole 20 mg PO DAILY 11/18/18 Isosorbide Mononitrate ER [Imdur] 30 mg PO DAILY 06/03/19 Ezetimibe [Zetia] 10 mg PO DAILY 06/02/20 lisinopriL [Zestril] 5 mg PO DAILY 07/19/22 Empagliflozin/Metformin HCl [Synjardy Xr 5-1,000 mg Tablet] 2 tab PO DAILY 07/24/22 Controlled Substance Measures - Controlled Substance Measures Is patient prescribed a controlled substance at discharge?: No
== END ==
LOC: PNWHC3 13:53
PROVIDERS: ATTEND Specialist
DX: M51.36 Other intervertebral disc degeneration, lumbar region (principal); M50.322 Other cervical disc degeneration at C5-C6 level; G89.29 Other chronic pain; M53.3 Sacrococcygeal disorders, not elsewhere classified; Z87.891 Personal history of nicotine dependence; Z88.5 Allergy status to narcotic agent; Z79.82 Long term (current) use of aspirin
CPT/HCPCS: 99211

== ENCOUNTER → 2022-10-10 | Outpatient (CLI) | payer MEDICARE, BC ==
--- NOTE | 2022-10-10 15:32 | US ---
EXAMINATION TYPE: US thyroid st tissue head/neck DATE OF EXAM: 10/10/2022 COMPARISON: Multiple thyroid ultrasounds with most recent 10/05/2021 CLINICAL INDICATION: Male, 72 years old with history of E04.2 NONTOXIC MULTINODULAR GOITER; GLAND SIZE: Right Lobe: 3.3 x 1.2 x 1.8 cm Overall Parenchyma: heterogenous Left Lobe: 3.1 x 1.4 x 1.4 cm Overall Parenchyma: heterogenous Isthmus Thickness: 0.2 cm NODULES RIGHT: # of nodules measured on right: 1 1. 0.6 X 0.6 x 0.6 cm, mid , solid or almost completely solid, hyperechoic nodule, which is wider t baez tall, with smooth margins, without echogenic foci. Prior size: 0.6 x 0.5 x 0.5 cm LEFT: # of nodules measured on left: 1 1. 0.4 x 0.4 x 0.3cm, mid , cystic or almost completely cystic, anechoic nodule, which is wider than tall, with smooth margins, without echogenic foci. Prior size: 0.5 x 0.4 x 0.3 cm ISTHMUS: # of nodules measured in the isthmus: 0 Bilateral neck scanned, no evidence of lymphadenopathy. IMPRESSION: Stable bilateral subcentimeter thyroid nodules as described above dating back to 2019. No new or enla rging nodules.
== END | disposition home or self-care (01) ==
LOC: RADUSWWP 12:20
PROVIDERS: ATTEND Surgery
DX: E04.2 Nontoxic multinodular goiter (principal)
CPT/HCPCS: 76536

== ENCOUNTER → 2022-10-10 | Outpatient (CLI) | payer MEDICARE, BC ==
[2022-10-10 14:35] VITALS: BP 114/76; PULSE 52; RESP 15; TEMP 97.8
--- NOTE | 2022-10-11 07:55 | P.PAINPG ---
PQRS Measure Charge Sheet Comment: A 71 yr old male with a history of severe and chronic R neck pain secondary to cervical DDD and spondylosis with facet arthropathy without myelopathy presents today for neck pain. Pain level is provoked at 8 /10 in intensity, constant, localized in the L cervical spine, achy/ sharp in character w shooting towards his R shoulder. Pain is provoked by lifting. Pain is alleviated with injections, PT x 6 wks in Sep 2022, heat, ice, medications, repositioning and rest. Oswestry pain score at 23. Interventional pain procedures completed include CHLOE C6-C7 x1 Patient is currently on Tyl Patient denies any side effects of the medication(s), denies excessive drowsiness or sleepiness, denies suicidal ideation and reports that the current pain medication is helping to control the pain and improve activities of daily living. Patient denies any motor or sensory deficits. Patient denies any fever or night sweats, denies any change in the bowel movements or urination. Physical Examination: -Constitutional: Cooperative. Not in acute distress . - Neurologic: Cranial nerve II to XII intact. No focal neurological deficits. - Psychatric: Alert & oriented x 3. Matching mood & appropriate affect. Judgment and insight intact. - Musculoskeletal: Cervical spine: Muscle bulk/ tone/ strength in the bilateral upper extremities normal Vertebral body tenderness to palpation over C6 Spurling test positive Distraction test positive Facet loading test positive TTP Thoracic spine Muscle bulk / tone/ strength in the bilateral paraspinal muscles normal Vertebral body tender to palpation over Facet loading test positive TTP Lumbar spine: Motor bulk/ tone/ strength lower extremities , thigh and legs : 5/5 Deep tendon reflexes : Normal Knee Jerk. Normal Ankle Jerk . Vertebral body tenderness to palpation over Cifuentes Test positive Lumbar Facet Loading Test positive Straight Leg Raise: positive at 30 degrees right side/ left side Gaenslen's Test positive Sacral spine : Severe tenderness over the Sacroiliac joint: right side / left side Range of motion: Flexion of the lumbar spine <60 degrees Range of motion: Extension of the lumbar spine <20 degrees Gaenslen's Test positive right side / left side Shanna test: positive right side / left side Thigh Thrust Test positive right side / left side Sacral Thrust Test positive right side / left side Assessment and plan: Chronic LBP secondary to lumbar DDD, spondylosis with facet arthropathy without myelopathy Recommendation of PT x 6 wks re: M50.30. All questions answered. I have spent less than 30 minutes on patient care today. Dr Colin was available by phone for the evaluation of this patient. The time was used to review the medical records including relevant urine studies and Prescription history (MAPs), review of the available imaging, evaluation and examination of the patient, coordination of care with the medical staff and if applicable referring physicians, as well as creation of the medical record - Pain Location Bilateral Neck Non-Pharmacological Interventions: Heat, Physical Therapy, Position/Reposition Pharmacological Interventions: Epidural PQRS Narrative: Smoking Status Former smoker Hx Alcohol Use (MH) No Home Medications: Ambulatory Orders Aspirin EC [Ecotrin Low Dose] 81 mg PO DAILY 12/28/14 Metoprolol Tartrate 25 mg PO QAM 12/28/14 Atorvastatin [Lipitor] 80 mg PO DAILY 03/22/16 Venlafaxine HCl ER [Effexor XR] 37.5 mg PO Q2D 07/10/18 Omeprazole 20 mg PO DAILY 11/18/18 Isosorbide Mononitrate ER [Imdur] 30 mg PO DAILY 06/03/19 Ezetimibe [Zetia] 10 mg PO DAILY 06/02/20 lisinopriL [Zestril] 5 mg PO DAILY 07/19/22 Empagliflozin/Metformin HCl [Synjardy Xr 5-1,000 mg Tablet] 2 tab PO DAILY 07/24/22 Controlled Substance Measures - Controlled Substance Measures Is patient prescribed a controlled substance at discharge?: No
== END ==
LOC: PNWHC3 13:49
PROVIDERS: ATTEND Specialist
DX: M51.36 Other intervertebral disc degeneration, lumbar region (principal); M47.816 Spondylosis without myelopathy or radiculopathy, lumbar region; G89.29 Other chronic pain; Z87.891 Personal history of nicotine dependence; Z79.82 Long term (current) use of aspirin; Z88.5 Allergy status to narcotic agent
CPT/HCPCS: 99211

== ENCOUNTER 2022-10-25 12:22 | Day surgery (SDC) | payer MEDICARE, BC ==
[2022-10-25 12:53] LABS: Glucose,Whole Blood 175 mg/dL (70-110)
[2022-10-25] MEDS ORDERED: LACTATED RINGERS 1,000 ML IV SCH (13:04)
[2022-10-25] MEDS ORDERED: DEXAMETHASONE SOD PHOSPHATE 10 MG/ML 1 ML VIAL ONE (13:12)
[2022-10-25] MEDS ORDERED: IOPAMIDOL M200 10 ML VIAL ONE (13:12)
--- NOTE | 2022-10-25 13:18 | P.PCN ---
Date of Procedure: 10/25/22 Procedure(s) Performed: PROCEDURE 1. Cervical epidural steroid injection under fluoroscopic guidance, C6-7 (fluoroscopy images available in the radiology department ) 2. Cervical epidurogram. PREOPERATIVE DIAGNOSIS: 1- Cervical Degenerative Disc Diseases 2-cervical spondylosis with cervical Facet arthropathy without myelopathy POSTOPERATIVE DIAGNOSIS: : 1- Cervical Degenerative Disc Diseases , 2-cervical spondylosis with cervical Facet arthropathy without myelopathy ANESTHESIA: Local anesthesia with lidocaine 1 % 3 ml only. EBL 0 PROCEDURE INDICATION: The patient with neck pain and radiculitis unresponsive to conservative treatment consents for procedure. PROCEDURE DESCRIPTION / TECHNIQUE: The patient was seen and identified in the preoperative area. Risks, benefits, complications, including but not limited to infections ,bleeding , allergic reactions to the medications ,and not complete pain releife, and alternatives were discussed with the patient, the patient agreed to proceed with the procedure and signed the consent. Patient was taken to the OR and time out was completed. The patient was placed in the prone position on the procedure table. A pillow was placed under the patients chest to increase the cervical interlaminar space. The cervical area was prepped and draped in the usual sterile fashion. Vital signs were closely monitored during the procedure. Using anterior-posterior fluoroscopy, the C6-7 interlaminar space was identified and the skin over this site was marked and then infiltrated with 1% lidocaine subcutaneously. Subsequently, a 20-gauge 3-1/2-inch Tuohy epidural needle was inserted and advanced toward the epidural space by means of the ``hanging-drop technique and guided by AP and lateral fluoroscopy. The correct needle position in the epidural space was verified with the injection of 2 mL of the water soluble contrast dye Isovue-200 and observing an excellent epidurogram with the epidural spread of the dye, after negative aspiration for blood and CSF and in the absence of paresthesias. then , mixture containing 15 mg Dexamethasone and 2 ml of preservative-free normal saline injected and a washout of epidurogram was seen. Needle was withdrawn intact, skin was cleansed, and bandages were applied. Complications= none. Disposition= patient was placed in supine position and transferred to the recovery room area in stable condition and there was no evidence of upper or lower extremity motor or sensory deficit after the procedure patient was discharged from recovery room after discharge criteria met and home discharge instructions was given by the staff and patient will follow with the pain clinic in 2-4 weeks
[2022-10-25 16:07] VITALS: BP 98/57; PULSE 58; RESP 18; TEMP 97
--- NOTE | 2022-10-25 21:54 | FL ---
EXAMINATION TYPE: FL guided pain mgmt statistic DATE OF EXAM: 10/25/2022 FLUOROSCOPY Fluoroscopy time of 2 seconds was used during cervical epidural steroid injection. 1 image/s documen t/s the procedure. 0.77273 mGycm2.
== END 2022-10-25 13:36 | disposition home or self-care (01) ==
LOC: ORPAIN 12:22
PROVIDERS: ATTEND Specialist
DX: M50.123 Cervical disc disorder at C6-C7 level with radiculopathy (principal); M47.22 Other spondylosis with radiculopathy, cervical region; E11.9 Type 2 diabetes mellitus without complications; Z88.5 Allergy status to narcotic agent; Z79.82 Long term (current) use of aspirin
CPT/HCPCS: 62321; J1100; Q9966

== ENCOUNTER → 2022-11-14 | Outpatient (CLI) | payer MEDICARE, BC ==
--- NOTE | 2022-11-14 14:45 | P.PAINPG ---
PQRS Measure Charge Sheet Comment: A 72 yr old male with a history of severe and chronic R neck pain secondary to cervical DDD and spondylosis with facet arthropathy without myelopathy presents today for CHLOE C6-C7 #2. Pt states he experienced 70 % pain relief x 3 wks s/p PT x 6 wks. Pain level is provoked at 8 /10 in intensity, constant, localized in the L hip, achy in character w shooting towards his L hip. Pain is provoked by weight bearing activity. Pain is alleviated with injections, medications, repositioning and rest. Oswestry axial pain score at 23. Interventional pain procedures completed include CHLOE C6-C7 x2 Patient is currently on Tyl, Ibu Patient denies any side effects of the medication(s), denies excessive drowsiness or sleepiness, denies suicidal ideation and reports that the current pain medication is helping to control the pain and improve activities of daily living. Patient denies any motor or sensory deficits. Patient denies any fever or night sweats, denies any change in the bowel movements or urination. Physical Examination: -Constitutional: Cooperative. Not in acute distress . - Neurologic: Cranial nerve II to XII intact. No focal neurological deficits. - Psychatric: Alert & oriented x 3. Matching mood & appropriate affect. Judgment and insight intact. - Musculoskeletal: Cervical spine: Muscle bulk/ tone/ strength in the bilateral upper extremities normal Vertebral body tenderness to palpation Spurling test positive Distraction test positive Facet loading test positive TTP Thoracic spine Muscle bulk / tone/ strength in the bilateral paraspinal muscles normal Vertebral body tender to palpation over Facet loading test positive TTP Lumbar spine: +L hip pain w adduction Motor bulk/ tone/ strength lower extremities , thigh and legs : 5/5 Deep tendon reflexes : Normal Knee Jerk. Normal Ankle Jerk . Vertebral body tenderness to palpation over Cifuentes Test positive Lumbar Facet Loading Test positive Straight Leg Raise: positive at 30 degrees right side/ left side Gaenslen's Test positive Sacral spine : Severe tenderness over the Sacroiliac joint: right side / left side Range of motion: Flexion of the lumbar spine <60 degrees Range of motion: Extension of the lumbar spine <20 degrees Gaenslen's Test positive right side / left side Shanna test: positive right side / left side Thigh Thrust Test positive right side / left side Sacral Thrust Test positive right side / left side Imaging: X ray of BL hips from 06/27/21 reviewed Assessment and plan: Chronic LBP secondary to lumbar DDD, spondylosis with facet arthropathy without myelopathy Recommendation of PT x 6 wks of L hip, CT without contrat of L hip Dx: M70.70 May follow up in 6 wks. All questions answered. I have spent less than 30 minutes on patient care today. Dr Colin was available by phone for the evaluation of this patient. The time was used to review the medical records including relevant urine studies and Prescription history (MAPs), review of the available imaging, evaluation and examination of the patient, coordination of care with the medical staff and if applicable referring physicians, as well as creation of the medical record PQRS Narrative: Smoking Status Former smoker Hx Alcohol Use (MH) No Home Medications: Ambulatory Orders Aspirin EC [Ecotrin Low Dose] 81 mg PO DAILY 12/28/14 Metoprolol Tartrate 25 mg PO QAM 12/28/14 Atorvastatin [Lipitor] 80 mg PO DAILY 03/22/16 Venlafaxine HCl ER [Effexor XR] 37.5 mg PO DIRECTED 07/10/18 Omeprazole 20 mg PO DAILY 11/18/18 Isosorbide Mononitrate ER [Imdur] 30 mg PO DAILY 06/03/19 Ezetimibe [Zetia] 10 mg PO DAILY 06/02/20 Empaglifloz/Linaglip/Metformin [Trijardy Xr 12.5-2.5-1,000 mg] 2 tab PO DAILY 10/24/22 Losartan [Cozaar] 25 mg PO DAILY 10/24/22 Controlled Substance Measures - Controlled Substance Measures Is patient prescribed a controlled substance at discharge?: No
[2022-11-14 14:55] VITALS: BP 117/77; PULSE 52; RESP 16
== END ==
LOC: PNWHC3 13:58
PROVIDERS: ATTEND Specialist
DX: M51.36 Other intervertebral disc degeneration, lumbar region (principal); M47.816 Spondylosis without myelopathy or radiculopathy, lumbar region; G89.29 Other chronic pain; Z87.891 Personal history of nicotine dependence; Z88.5 Allergy status to narcotic agent; Z79.82 Long term (current) use of aspirin
CPT/HCPCS: 99211

== ENCOUNTER → 2022-12-06 | Outpatient (CLI) | payer MEDICARE, BC ==
--- NOTE | 2022-12-06 13:53 | CT ---
EXAMINATION TYPE: CT hip LT wo con CT DLP: 607.20 mGycm, Automated exposure control for dose reduction was used. DATE OF EXAM: 12/06/2022 1:13 PM COMPARISON: None CLINICAL INDICATION:Male, 72 years old with history of M70.70 OTHER BURSITIS OF HIP, UNSPECIFIED HIP; PHH, Other bursitis TECHNIQUE: Axial images were obtained of the left hip without the use of IV contrast. Additional cor onal and sagittal reformatted images and soft tissue and bone window were obtained for review. FINDINGS: There is no evidence of fracture, subluxation, or dislocation. No significant soft tissue swelling or joint effusion is identified. Minimal medial joint cyst measuring with marginal osteophyt osis of the femoral head. No focal muscular atrophy or edema is identified. No radiopaque foreign bod y identified. No obvious bursal fluid collection. IMPRESSION: 1. No acute fracture or dislocation. 2. Minimal left hip osteoarthritic disease. 3. No joint effusion or bursal fluid collection identified.
== END | disposition home or self-care (01) ==
LOC: RADCTMAIN 12:39
PROVIDERS: ATTEND Specialist
DX: M16.12 Unilateral primary osteoarthritis, left hip (principal); M70.72 Other bursitis of hip, left hip

== ENCOUNTER → 2023-01-14 | Outpatient (CLI) | payer MEDICARE, BC ==
--- NOTE | 2023-01-14 14:42 | P.PAINPG ---
PQRS Measure Charge Sheet Comment: A 72 yr old male with a history of severe and chronic L hip pain secondary to DJD presents today for evaluation. Pain level is provoked at 9 /10 in intensity, constant, localized in the L hip, sore & achy in character without shooting pain. Pain is provoked by weight bearing activity. Pain is alleviated with PT x 6 wks which he is currently in, injections, medications, repositioning and rest. Interventional pain procedures completed include CHLOE C6-C7 x2, L hip intraarticular x2 Patient is currently on Tyl, Ibu Patient denies any side effects of the medication(s), denies excessive drowsiness or sleepiness, denies suicidal ideation and reports that the current pain medication is helping to control the pain and improve activities of daily living. Patient denies any motor or sensory deficits. Patient denies any fever or night sweats, denies any change in the bowel movements or urination. Physical Examination: -Constitutional: Cooperative. Not in acute distress . - Neurologic: Cranial nerve II to XII intact. No focal neurological deficits. - Psychatric: Alert & oriented x 3. Matching mood & appropriate affect. Judgment and insight intact. - Musculoskeletal: Cervical spine: Muscle bulk/ tone/ strength in the bilateral upper extremities normal Vertebral body tenderness to palpation Spurling test positive Distraction test positive Facet loading test positive TTP Thoracic spine Muscle bulk / tone/ strength in the bilateral paraspinal muscles normal Vertebral body tender to palpation over Facet loading test positive TTP Lumbar spine: +L hip pain w adduction Motor bulk/ tone/ strength lower extremities , thigh and legs : 5/5 Deep tendon reflexes : Normal Knee Jerk. Normal Ankle Jerk . Vertebral body tenderness to palpation over Cifuentes Test positive Lumbar Facet Loading Test positive Straight Leg Raise: positive at 30 degrees right side/ left side Gaenslen's Test positive Sacral spine : Severe tenderness over the Sacroiliac joint: right side / left side Range of motion: Flexion of the lumbar spine <60 degrees Range of motion: Extension of the lumbar spine <20 degrees Gaenslen's Test positive right side / left side Shanna test: positive right side / left side Thigh Thrust Test positive right side / left side Sacral Thrust Test positive right side / left side Imaging: X ray of BL hips from 06/27/[address] non contrast of the L hip from 12/06/22 reviewed Assessment and plan: Chronic LBP secondary to lumbar DDD, spondylosis with facet arthropathy without myelopathy Recommendation of L intra articular hip injection. May need a series for optimal pain relief. Risks, benefits of procedure discussed and pt verbalized understanding. Protocol for discontinuation/ continuation of medications arianne procedure discussed. All questions answered. I have spent less than 30 minutes on patient care today. Dr Colin was available by phone for the evaluation of this patient. The time was used to review the medical records including relevant urine studies and Prescription history (MAPs), review of the available imaging, evaluation and examination of the patient, coordination of care with the medical staff and if applicable referring physicians, as well as creation of the medical record PQRS Narrative: Smoking Status Former smoker Hx Alcohol Use (MH) No Home Medications: Ambulatory Orders Aspirin EC [Ecotrin Low Dose] 81 mg PO DAILY 12/28/14 Metoprolol Tartrate 25 mg PO QAM 12/28/14 Atorvastatin [Lipitor] 80 mg PO DAILY 03/22/16 Venlafaxine HCl ER [Effexor XR] 37.5 mg PO DIRECTED 07/10/18 Omeprazole 20 mg PO DAILY 11/18/18 Isosorbide Mononitrate ER [Imdur] 30 mg PO DAILY 06/03/19 Ezetimibe [Zetia] 10 mg PO DAILY 06/02/20 Empaglifloz/Linaglip/Metformin [Trijardy Xr 12.5-2.5-1,000 mg] 2 tab PO DAILY 10/24/22 Losartan [Cozaar] 25 mg PO DAILY 10/24/22 Controlled Substance Measures - Controlled Substance Measures Is patient prescribed a controlled substance at discharge?: No
[2023-01-14 14:47] VITALS: BP 132/82; PULSE 52; RESP 16; TEMP 97.8
== END ==
LOC: PNWHC3 13:57
PROVIDERS: ATTEND Specialist
DX: M51.36 Other intervertebral disc degeneration, lumbar region (principal); M16.12 Unilateral primary osteoarthritis, left hip; Z88.5 Allergy status to narcotic agent; Z79.82 Long term (current) use of aspirin; Z87.891 Personal history of nicotine dependence; M47.816 Spondylosis without myelopathy or radiculopathy, lumbar region
CPT/HCPCS: 99211

== ENCOUNTER 2023-01-24 12:36 | Day surgery (SDC) | payer MEDICARE, BC ==
[2023-01-22 16:05] VITALS: BMI 35.9
[~2023-01-24 12:36] MED LIST changes: -LIDOCAINE 1% (10MG/ML) FOR IV START INTRADERMA PRN
[2023-01-24] MEDS ORDERED: IOPAMIDOL M200 10 ML VIAL ONE (13:41)
[2023-01-24] MEDS ORDERED: ROPIVACAINE 5MG/ML 20ML VIAL ONE (13:41)
[2023-01-24] MEDS ORDERED: methylPREDNISolone ACETATE 40 MG/ML 1 ML VIAL ONE (13:41)
[2023-01-24 13:44] LABS: Glucose,Whole Blood 174 mg/dL (70-110)
[2023-01-24 13:52] VITALS: PULSE 61; RESP 16; TEMP 97.1
--- NOTE | 2023-01-24 13:54 | P.PCN ---
Date of Procedure: 01/24/23 Procedure(s) Performed: Preoperative diagnoses: 1. Left hip osteoarthritis Postoperative diagnoses: 1. Left hip osteoarthritis Procedure: Left hip intra-articular steroid injection under fluoroscopy Anesthesia: Local only Description of the procedure: Patient was seen and identified in the preoperative holding area, risk and benefits, complications ,and alternatives of the procedure were discussed with the patient and patient agreed with the preceding, patient signed the consent , and vital signs were monitored throughout the procedure and it was stable. The patient was taken to the operating room and placed in supine position the groin area was prepped with chlorhexidine 3 and draped with the standard fashion. Local anesthetic was used with lidocaine 1% then using 25 -gauge needle, under direct fluoroscopy and anterior posterior image of the hip joint was ascertained. A 22-gauge Quincke 5 inches long needle was then advanced to the femoral neck until contact with bone was made. After negative aspiration for bl ood, 3 mL of Omnipaque was then injected to confirm placement of needle into the joint capsule. Once correct position was confirmed and after negative aspiration for blood, a solution consisting of 5 ML's of 0.5% Marcaine with 40 mg/1 mL of Depo-Medrol was administered. A washout image was then obtained to confirm adequate spread within the joint capsule. Needle was removed, and a Band-Aid was placed. Patient tolerated procedure well with no complications Disposition: We'll see patient in clinic in 4 weeks' time to assess efficacy.
[2023-01-24 14:18] VITALS: BP 102/68
--- NOTE | 2023-01-24 14:34 | FL ---
Fluoroscopy History: LARAGE BURSA JOINT L HIP BURSA INJECTION, 4SEC FL TIME, [id number]
== END 2023-01-24 14:13 | disposition home or self-care (01) ==
LOC: ORPAIN 12:36
PROVIDERS: ATTEND Specialist
DX: M16.12 Unilateral primary osteoarthritis, left hip (principal); E11.9 Type 2 diabetes mellitus without complications; Z79.82 Long term (current) use of aspirin; Z88.5 Allergy status to narcotic agent
CPT/HCPCS: 20610; J1030; Q9966; J2795

== ENCOUNTER → 2023-02-21 | Outpatient (CLI) | payer MEDICARE, BC ==
[2023-02-21 14:23] VITALS: BP 124/75; PULSE 54; RESP 16
--- NOTE | 2023-02-21 14:58 | P.PAINPG ---
Objective - Vital Signs Vital signs: Vital Signs Temp Pulse 54 L 02/21/23 14:10 Resp 16 02/21/23 14:10 BP 124/75 02/21/23 14:10 Pulse Ox 93 L 02/21/23 14:10 FiO2 Intake & Output 02/20/23 02/21/23 02/21/23 18:59 06:59 18:59 Weight 127.006 kg PQRS Measure Charge Sheet Mode of Arrival: Ambulatory Comment: A 72 yr old male with a history of severe and chronic L hip pain secondary to DJD presents today for evaluation s/p L intraarticular injection #1. Pt states he experienced 90% pain relief x 4 wks s/p procedure. Pain level is provoked at 3 /10 in intensity, constant, localized in the L hip, dull in character without shooting pain. Pain is provoked by weight bearing activity. Pain is alleviated with PT x 6 wks which ended in Jan 2023, injections, medications, repositioning and rest. Interventional pain procedures completed include CHLOE C6-C7 x2, L hip intraarticular x2 Patient is currently on Tyl, Ibu Patient denies any side effects of the medication(s), denies excessive drowsiness or sleepiness, denies suicidal ideation and reports that the current pain medication is helping to control the pain and improve activities of daily living. Patient denies any motor or sensory deficits. Patient denies any fever or night sweats, denies any change in the bowel movements or urination. Physical Examination: -Constitutional: Cooperative. Not in acute distress . - Neurologic: Cranial nerve II to XII intact. No focal neurological deficits. - Psychatric: Alert & oriented x 3. Matching mood & appropriate affect. Judgment and insight intact. - Musculoskeletal: Cervical spine: Muscle bulk/ tone/ strength in the bilateral upper extremities normal Vertebral body tenderness to palpation Spurling test positive Distraction test positive Facet loading test positive TTP Thoracic spine Muscle bulk / tone/ strength in the bilateral paraspinal muscles normal Vertebral body tender to palpation over Facet loading test positive TTP Lumbar spine: +L hip pain w adduction Motor bulk/ tone/ strength lower extremities , thigh and legs : 5/5 Deep tendon reflexes : Normal Knee Jerk. Normal Ankle Jerk . Vertebral body tenderness to palpation over Cifuentes Test positive Lumbar Facet Loading Test positive Straight Leg Raise: positive at 30 degrees right side/ left side Gaenslen's Test positive Sacral spine : Severe tenderness over the Sacroiliac joint: right side / left side Range of motion: Flexion of the lumbar spine <60 degrees Range of motion: Extension of the lumbar spine <20 degrees Gaenslen's Test positive right side / left side Shanna test: positive right side / left side Thigh Thrust Test positive right side / left side Sacral Thrust Test positive right side / left side Imaging: X ray of BL hips from 06/27/[address] non contrast of the L hip from 12/06/22 reviewed Assessment and plan: Chronic LBP secondary to lumbar DDD, spondylosis with facet arthropathy without myelopathy Will manage residual pain in the RTC on an as-needed basis. All questions answered. I have spent less than 30 minutes on patient care today. Dr Colin was available by phone for the evaluation of this patient. The time was used to review the medical records including relevant urine studies and Prescription history (MAPs), review of the available imaging, evaluation and examination of the patient, coordination of care with the medical staff and if applicable referring physicians, as well as creation of the medical record PQRS Narrative: Smoking Status Former smoker Blood Pressure 124/75 Pain Intensity [Left Hip] 3 Scale Used Numeric (1 - 10) Hx Alcohol Use (MH) No Home Medications: Ambulatory Orders Aspirin EC [Ecotrin Low Dose] 81 mg PO DAILY 12/28/14 Metoprolol Tartrate 25 mg PO QAM 12/28/14 Atorvastatin [Lipitor] 80 mg PO DAILY 03/22/16 Venlafaxine HCl ER [Effexor XR] 37.5 mg PO Q72H 07/10/18 Omeprazole 20 mg PO DAILY 11/18/18 Isosorbide Mononitrate ER [Imdur] 30 mg PO DAILY 06/03/19 Ezetimibe [Zetia] 10 mg PO DAILY 06/02/20 Empaglifloz/Linaglip/Metformin [Trijardy Xr 12.5-2.5-1,000 mg] 2 tab PO DAILY 10/24/22 Losartan [Cozaar] 25 mg PO DAILY 10/24/22 Controlled Substance Measures - Controlled Substance Measures Is patient prescribed a controlled substance at discharge?: No
== END ==
LOC: PNWHC3 13:58
PROVIDERS: ATTEND Specialist
DX: M16.12 Unilateral primary osteoarthritis, left hip (principal); M51.36 Other intervertebral disc degeneration, lumbar region; M47.816 Spondylosis without myelopathy or radiculopathy, lumbar region; G89.29 Other chronic pain; Z79.82 Long term (current) use of aspirin; Z87.891 Personal history of nicotine dependence; Z88.5 Allergy status to narcotic agent
CPT/HCPCS: 99211

== ENCOUNTER → 2023-07-02 | Outpatient (CLI) | payer MEDICARE, BC ==
[2023-07-02 13:29] VITALS: BP 128/72; PULSE 68; RESP 15; TEMP 98.3
--- NOTE | 2023-07-02 14:21 | P.PAINPG ---
PQRS Measure Charge Sheet Comment: A 72 yr old male with a history of severe and chronic L hip pain secondary to DJD presents today for evaluation. Pain level is provoked at 8 /10 in intensity, constant, localized in the L hip, dull in character without shooting pain. Pain is provoked by weight bearing activity. Pain is alleviated with PT x 6 wks which ended in Jan 2023, injections, medications, repositioning and rest. Interventional pain procedures completed include CHLOE C6-C7 x2, L hip intraarticular x2 Patient is currently on Tyl, Ibu Patient denies any side effects of the medication(s), denies excessive drowsiness or sleepiness, denies suicidal ideation and reports that the current pain medication is helping to control the pain and improve activities of daily living. Patient denies any motor or sensory deficits. Patient denies any fever or night sweats, denies any change in the bowel movements or urination. Physical Examination: -Constitutional: Cooperative. Not in acute distress . - Neurologic: Cranial nerve II to XII intact. No focal neurological deficits. - Psychatric: Alert & oriented x 3. Matching mood & appropriate affect. Judgment and insight intact. - Musculoskeletal: Cervical spine: Muscle bulk/ tone/ strength in the bilateral upper extremities normal Vertebral body tenderness to palpation Spurling test positive Distraction test positive Facet loading test positive TTP Thoracic spine Muscle bulk / tone/ strength in the bilateral paraspinal muscles normal Vertebral body tender to palpation over Facet loading test positive TTP Lumbar spine: +L hip pain w adduction Motor bulk/ tone/ strength lower extremities , thigh and legs : 5/5 Deep tendon reflexes : Normal Knee Jerk. Normal Ankle Jerk . Vertebral body tenderness to palpation over Cifuentes Test positive Lumbar Facet Loading Test positive Straight Leg Raise: positive at 30 degrees right side/ left side Gaenslen's Test positive Sacral spine : Severe tenderness over the Sacroiliac joint: right side / left side Range of motion: Flexion of the lumbar spine <60 degrees Range of motion: Extension of the lumbar spine <20 degrees Gaenslen's Test positive right side / left side Shanna test: positive right side / left side Thigh Thrust Test positive right side / left side Sacral Thrust Test positive right side / left side Imaging: X ray of BL hips from 06/27/[address] non contrast of the L hip from 12/06/22 reviewed Assessment and plan: Chronic LBP secondary to lumbar DDD, spondylosis with facet arthropathy without myelopathy Recommendation of L hip intra articular injection #3. May need a series of injections for optimal pain relief. Risks, benefits of procedure discussed and pt verbalized understanding. Protocol for discontinuation/ continuation of medications arianne procedure discussed. All questions answered. I have spent less than 30 minutes on patient care today. Dr Colin was available by phone for the evaluation of this patient. The time was used to review the medical records including relevant urine studies and Prescription history (MAPs), review of the available imaging, evaluation and examination of the patient, coordination of care with the medical staff and if applicable referring physicians, as well as creation of the medical record PQRS Narrative: Smoking Status Former smoker Hx Alcohol Use (MH) No Home Medications: Ambulatory Orders Aspirin EC [Ecotrin Low Dose] 81 mg PO DAILY 12/28/14 Metoprolol Tartrate 25 mg PO QAM 12/28/14 Atorvastatin [Lipitor] 80 mg PO DAILY 03/22/16 Venlafaxine HCl ER [Effexor XR] 37.5 mg PO Q72H 07/10/18 Omeprazole 20 mg PO DAILY 11/18/18 Isosorbide Mononitrate ER [Imdur] 30 mg PO DAILY 06/03/19 Ezetimibe [Zetia] 10 mg PO DAILY 06/02/20 Empaglifloz/Linaglip/Metformin [Trijardy Xr 12.5-2.5-1,000 mg] 2 tab PO DAILY 10/24/22 Losartan [Cozaar] 25 mg PO DAILY 10/24/22 Controlled Substance Measures - Controlled Substance Measures Is patient prescribed a controlled substance at discharge?: No
== END ==
LOC: PNWHC3 12:26
PROVIDERS: ATTEND Specialist
DX: M51.36 Other intervertebral disc degeneration, lumbar region (principal); M47.816 Spondylosis without myelopathy or radiculopathy, lumbar region; G89.29 Other chronic pain; Z87.891 Personal history of nicotine dependence; Z88.5 Allergy status to narcotic agent
CPT/HCPCS: 99211

== ENCOUNTER 2023-07-09 12:01 | Day surgery (SDC) | payer MEDICARE, BC ==
[2023-07-09 12:31] LABS: Glucose,Whole Blood 193 mg/dL (70-110)
[2023-07-09 12:45] VITALS: TEMP 97.4
[2023-07-09] MEDS ORDERED: IOPAMIDOL M200 10 ML VIAL ONE (12:55)
[2023-07-09] MEDS ORDERED: TRIAMCINOLONE ACETONIDE 40 MG/ML 1 ML VIAL ONE (12:55)
[2023-07-09] MEDS ORDERED: ROPIVACAINE 5MG/ML 20ML VIAL ONE (12:55)
--- NOTE | 2023-07-09 13:07 | P.PCN ---
Date of Procedure: 07/09/23 Preoperative Diagnosis: left hip osteoarthritis Postoperative Diagnosis: same as above Procedure(s) Performed: left hip intra-articular steroid injection with fluoroscopic guidance Anesthesia: local (Lidocaine 1 %) Surgeon: Pk New Pathology: none sent Condition: stable Disposition: PACU Description of Procedure: Patient was seen and identified in the preoperative holding area, risk and benefits, complications ,and alternatives of the procedure were discussed with the patient and patient agreed with the preceding, patient signed the consent , and vital signs were monitored throughout the procedure and it was stable. The patient was taken to the operating room and placed in supine position the groin area was prepped with chlorhexidine 3 and draped with the standard fashion. Local anesthetic was used with lidocaine 1% then using 25 -gauge needle, under direct fluoroscopy and anterior posterior image of the hip joint was ascertained. A 22-gauge Quincke 5 inches long needle was then advanced to the femoral neck until contact with bone was made. After negative aspiration for b lood, 3 mL of Omnipaque was then injected to confirm placement of needle into the joint capsule. Once correct position was confirmed and after negative aspiration for blood, a solution consisting of 5 ML's of 0.5% Marcaine with 40 mg/1 mL of Kenalog was administered. A washout image was then obtained to confirm adequate spread within the joint capsule. Needle was removed, and a Band-Aid was placed. Patient tolerated procedure well with no complications
[2023-07-09 13:44] VITALS: BP 131/65; PULSE 48; RESP 16
--- NOTE | 2023-07-09 15:32 | FL ---
EXAMINATION TYPE: FL guided pain mgmt statistic DATE OF EXAM: 07/09/2023 FLUOROSCOPY large bursa joint inj, left hip fl: 28 sec dap: [id number] mGym2 One image submitted.
== END 2023-07-09 13:28 | disposition home or self-care (01) ==
LOC: ORPAIN 12:01
PROVIDERS: ATTEND Anesthesiology
DX: M16.12 Unilateral primary osteoarthritis, left hip (principal); I10 Essential (primary) hypertension; E11.9 Type 2 diabetes mellitus without complications; Z79.82 Long term (current) use of aspirin; Z88.1 Allergy status to other antibiotic agents; Z88.8 Allergy status to other drugs, medicaments and biological substances
CPT/HCPCS: 20610; 77002; J3301; Q9966; J2795

== ENCOUNTER → 2023-07-22 | Outpatient (CLI) | payer MEDICARE, BC ==
[2023-07-22 14:08] VITALS: RESP 16
[2023-07-22 14:20] VITALS: BP 123/68; PULSE 58
--- NOTE | 2023-07-22 15:07 | P.PAINPG ---
PQRS Measure Charge Sheet Comment: A 72 yr old male with a history of severe and chronic neck and L hip pain secondary to DJD, DDD, spondylosis and facet arthropathy without myelopathy presents today for evaluation s/p L hip intra articular injection #3. Pt states he experienced % pain relief x 2 wks s/p procedure. Pain level is provoked at 9 /10 in intensity, constant, localized in the cervical spine, achy in character w occasional shooting pain towards the shoulders. Pain is provoked by weight bearing activity. PT x 6 wks which ended in Jan 2023 which was ineffective. Pain is alleviated w physician guided stretches daily since Jan 2023 (cervical), injections, medications, repositioning and rest. Cervical disability score of 27. Interventional pain procedures completed include CHLOE C6-C7 x2, L hip intraarticular x3 Patient is currently on Tyl, Ibu Patient denies any side effects of the medication(s), denies excessive drowsiness or sleepiness, denies suicidal ideation and reports that the current pain medication is helping to control the pain and improve activities of daily living. Patient denies any motor or sensory deficits. Patient denies any fever or night sweats, denies any change in the bowel movements or urination. Physical Examination: -Constitutional: Cooperative. Not in acute distress . - Neurologic: Cranial nerve II to XII intact. No focal neurological deficits. - Psychatric: Alert & oriented x 3. Matching mood & appropriate affect. Judgment and insight intact. - Musculoskeletal: Cervical spine: Muscle bulk/ tone/ strength in the bilateral upper extremities normal Vertebral body tenderness to palpation on C6 Spurling test positive Distraction test positive Facet loading test positive TTP Thoracic spine Muscle bulk / tone/ strength in the bilateral paraspinal muscles normal Vertebral body tender to palpation over Facet loading test positive TTP Lumbar spine: +L hip pain w adduction Motor bulk/ tone/ strength lower extremities , thigh and legs : 5/5 Deep tendon reflexes : Normal Knee Jerk. Normal Ankle Jerk . Vertebral body tenderness to palpation over Cifuentes Test positive Lumbar Facet Loading Test positive Straight Leg Raise: positive at 30 degrees right side/ left side Gaenslen's Test positive Sacral spine : Severe tenderness over the Sacroiliac joint: right side / left side Range of motion: Flexion of the lumbar spine <60 degrees Range of motion: Extension of the lumbar spine <20 degrees Gaenslen's Test positive right side / left side Shanna test: positive right side / left side Thigh Thrust Test positive right side / left side Sacral Thrust Test positive right side / left side Imaging: X ray of BL hips from 06/27/[address] non contrast of the L hip from 12/06/22 reviewed Assessment and plan: Chronic neck pain secondary to DDD, spondylosis with facet arthropathy without myelopathy Recommendation of CHLOE C6-C7 #3. May need a series of injections for optimal pain relief. Risks, benefits of procedure discussed and pt verbalized understanding. Protocol for discontinuation/ continuation of medications arianne procedure discussed. All questions answered. I have spent less than 30 minutes on patient care today. Dr Colin was available by phone for the evaluation of this patient. The time was used to review the medical records including relevant urine studies and Prescription history (MAPs), review of the available imaging, evaluation and examination of the patient, coordination of care with the medical staff and if applicable referring physicians, as well as creation of the medical record PQRS Narrative: Smoking Status Former smoker Hx Alcohol Use (MH) No Home Medications: Ambulatory Orders Aspirin EC [Ecotrin Low Dose] 81 mg PO QAM 12/28/14 Metoprolol Tartrate 25 mg PO QAM 12/28/14 Atorvastatin [Lipitor] 80 mg PO QAM 03/22/16 Venlafaxine HCl ER [Effexor XR] 37.5 mg PO QAM 07/10/18 Omeprazole 20 mg PO QAM 11/18/18 Isosorbide Mononitrate ER [Imdur] 30 mg PO QAM 06/03/19 Ezetimibe [Zetia] 10 mg PO QAM 06/02/20 Empaglifloz/Linaglip/Metformin [Trijardy Xr 12.5-2.5-1,000 mg] 2 tab PO QAM 10/24/22 Losartan [Cozaar] 25 mg PO QAM 10/24/22 Multivitamins, Thera [Multivitamin (formulary)] 1 tab PO QAM 07/04/23 Vitamin E (Dl,Tocopheryl Acet) [Vitamin E (400 Iu = 180 mg)] 400 unit PO QAM 07/04/23 Controlled Substance Measures - Controlled Substance Measures Is patient prescribed a controlled substance at discharge?: No
== END ==
LOC: PNWHC3 13:53
PROVIDERS: ATTEND Specialist
DX: M50.323 Other cervical disc degeneration at C6-C7 level (principal); M47.812 Spondylosis without myelopathy or radiculopathy, cervical region; Z87.891 Personal history of nicotine dependence; Z88.5 Allergy status to narcotic agent
CPT/HCPCS: 99211

== ENCOUNTER 2023-08-06 09:56 | Day surgery (SDC) | payer MEDICARE, BC ==
[2023-08-06] MEDS ORDERED: LACTATED RINGERS 1,000 ML IV SCH (10:21)
[2023-08-06 10:24] VITALS: RESP 16; TEMP 97.1
[2023-08-06 10:35] LABS: Glucose,Whole Blood 150 mg/dL (70-110)
[2023-08-06] MEDS ORDERED: ROPIVACAINE 5MG/ML 20ML VIAL ONE (11:22)
[2023-08-06] MEDS ORDERED: DEXAMETHASONE SOD PHOSPHATE 10 MG/ML 1 ML VIAL ONE (11:22)
[2023-08-06] MEDS ORDERED: IOPAMIDOL M300 15ML VIAL ONE (11:22)
[2023-08-06 11:43] VITALS: BP 118/75; PULSE 57
--- NOTE | 2023-08-06 12:48 | P.PCN ---
Description of Procedure: PROCEDURE 1. Injection of radio contrast material into cervical epidural space, cervical epidurogram, interpretation of cervical epidurogram, Cervical epidural steroid injection under fluoroscopic guidance, C7-T1 (fluoroscopy images available in the radiology department ) 2. Cervical epidurogram. PREOPERATIVE DIAGNOSIS: 1- Cervical Degenerative Disc Diseases 2- Cervical radiculopathy., 3-cervical spondylosis with cervical Facet arthropathy without myelopathy.4-cervical spinal stenosis POSTOPERATIVE DIAGNOSIS: : 1- Cervical Degenerative Disc Diseases , 2- Cervical radiculopathy. 3-,cervical spondylosis with cervical Facet arthropathy without myelopathy. 4-cervical spinal stenosis ANESTHESIA: Local anesthetics infiltration. In the OR continuous pulse ox, EKG, blood pressure and verbal communication was maintained. EBL : None PROCEDURE INDICATION: The patient with neck pain and radiculitis unresponsive to conservative treatment consents for procedure. Discussed the procedure, alternatives and possible complications which may include increased pain, infection, bleeding, nerve damage, paralysis all of which could be permanent. Patient understands and all questions were answered. PROCEDURE DESCRIPTION : After getting consent patient was taken to the OR , positioned in prone position and time out was completed. A pillow was placed under the patients chest to increase the cervical interlaminar space. The cervical area was prepped and draped in the usual sterile fashion. Using anterior-posterior fluoroscopy, interlaminar space was identified and the skin over this site was marked and then infiltrated with 1% lidocaine subcutaneously. Subsequently, a 20-gauge 3-1/2-inch Tuohy epidural needle was inserted and advanced toward the epidural space with the loss of resistance technique using a syringe filled with preservative-free normal saline and guided by AP and lateral fluoroscopy. Negative CSF, negative blood, negative paresthesia. The correct needle position in the epidural space was verified with the injection of 2 mL of the water soluble contrast dye [id number]-200 and observing an excellent epidurogram with the epidural spread of the dye, after repeat negative aspiration 3 mL solution was injected which consists of 1 mL of preservative-free normal saline mixed with 2 mL of 20 mg dexamethasone and a washout of epidurogram was seen. Needle was withdrawn intact, skin was cleansed, and bandages were applied. Disposition: Patient tolerated the procedure well. No complication. Patient was placed in supine position and transferred to the recovery room area in stable condition and there was no evidence of upper or lower extremity motor or sensory deficit after the procedure patient was discharged from recovery room after discharge criteria met and home discharge instructions was given by the staff and patient will follow with the pain clinic in 2-4 weeks
--- NOTE | 2023-08-06 13:14 | FL ---
EXAMINATION TYPE: FL guided pain mgmt statistic Intraoperative/procedural fluoroscopic services were provided. Total fluoroscopy time is 23.2 seconds with a total of 2 submitted images to PACS. Please s ee the operative/procedural note for further details. DAP: 0.1363 mGym2
== END 2023-08-06 11:58 | disposition home or self-care (01) ==
LOC: ORPAIN 09:56
PROVIDERS: ATTEND Pain Medicine Interventional Pain Medicine
DX: M47.22 Other spondylosis with radiculopathy, cervical region (principal); M48.02 Spinal stenosis, cervical region; M50.123 Cervical disc disorder at C6-C7 level with radiculopathy; E11.9 Type 2 diabetes mellitus without complications; Z79.82 Long term (current) use of aspirin; Z88.1 Allergy status to other antibiotic agents
CPT/HCPCS: 62321; J1100; Q9967; J2795

== ENCOUNTER → 2023-08-26 | Outpatient (CLI) | payer MEDICARE, BC ==
[2023-08-26 14:58] VITALS: BP 123/74; PULSE 68; RESP 16
--- NOTE | 2023-08-26 15:12 | P.PAINPG ---
Objective - Vital Signs Vital signs: Vital Signs Temp Pulse 68 08/26/23 14:55 Resp 16 08/26/23 14:55 BP 123/74 08/26/23 14:55 Pulse Ox 97 08/26/23 14:55 FiO2 PQRS Measure Charge Sheet Mode of Arrival: Ambulatory Comment: A 72 yr old male with a history of severe and chronic neck and L hip pain secondary to DJD, DDD, spondylosis and facet arthropathy without myelopathy presents today for evaluation s/p CHLOE C7-T1 #1. Pt states he experienced 100 % pain relief x 2-3 wks s/p procedure. Pain level is provoked at 7 /10 in intensity, constant, localized in the cervical spine, achy in character w occasional shooting pain towards the shoulders. Pain is provoked by weight bearing activity. PT x 6 wks which ended in Jan 2023 which was ineffective. Pain is alleviated w physician guided stretches daily since Jan 2023 (cervical), injections, medications, repositioning and rest. Cervical disability score of 25. Interventional pain procedures completed include CHLOE C6-C7 x2, CHLOE C7-T1 x1, L hip intraarticular x3 Patient is currently on Tyl, Ibu Patient denies any side effects of the medication(s), denies excessive drowsiness or sleepiness, denies suicidal ideation and reports that the current pain medication is helping to control the pain and improve activities of daily living. Patient denies any motor or sensory deficits. Patient denies any fever or night sweats, denies any change in the bowel movements or urination. Physical Examination: -Constitutional: Cooperative. Not in acute distress . - Neurologic: Cranial nerve II to XII intact. No focal neurological deficits. - Psychatric: Alert & oriented x 3. Matching mood & appropriate affect. Judgment and insight intact. - Musculoskeletal: Cervical spine: Muscle bulk/ tone/ strength in the bilateral upper extremities normal Vertebral body tenderness to palpation Spurling test positive Distraction test positive Facet loading test positive TTP Thoracic spine Muscle bulk / tone/ strength in the bilateral paraspinal muscles normal Vertebral body tender to palpation over Facet loading test positive TTP Lumbar spine: +L hip Trendelenberg Motor bulk/ tone/ strength lower extremities , thigh and legs : 5/5 Deep tendon reflexes : Normal Knee Jerk. Normal Ankle Jerk . Vertebral body tenderness to palpation over Cifuentes Test positive Lumbar Facet Loading Test positive Straight Leg Raise: positive at 30 degrees right side/ left side Gaenslen's Test positive Sacral spine : Severe tenderness over the Sacroiliac joint: right side / left side Range of motion: Flexion of the lumbar spine <60 degrees Range of motion: Extension of the lumbar spine <20 degrees Gaenslen's Test positive right side / left side Shanna test: positive right side / left side Thigh Thrust Test positive right side / left side Sacral Thrust Test positive right side / left side Imaging: X ray of BL hips from 06/27/[address] non contrast of the L hip from 12/06/22 reviewed Assessment and plan: Chronic neck pain secondary to DDD, spondylosis with facet arthropathy without myelopathy, L Hip DJD Recommendation of L hip intra articular injection #4. May need a series of injections for optimal pain relief. Risks, benefits of procedure discussed and pt verbalized understanding. Protocol for discontinuation/ continuation of medications arianne procedure discussed. All questions answered. I have spent less than 30 minutes on patient care today. Dr Colin was availab le by phone for the evaluation of this patient. The time was used to review the medical records including relevant urine studies and Prescription history (MAPs), review of the available imaging, evaluation and examination of the patient, coordination of care with the medical staff and if applicable referring physicians, as well as creation of the medical record - Pain Location Left Hip Non-Pharmacological Interventions: Heat, Ice, Inactivity, Physical Therapy, Position/Reposition Pharmacological Interventions: Block, Epidural, PRN Medication, Scheduled Medication, Topical Medication PQRS Narrative: Smoking Status Former smoker Blood Pressure 123/74 Pain Intensity [Left Hip] 7 Scale Used Numeric (1 - 10) Hx Alcohol Use (MH) No Home Medications: Ambulatory Orders Aspirin EC [Ecotrin Low Dose] 81 mg PO QAM 12/28/14 Atorvastatin [Lipitor] 80 mg PO QAM 03/22/16 Venlafaxine HCl ER [Effexor XR] 37.5 mg PO QAM 07/10/18 Omeprazole 20 mg PO QAM 11/18/18 Isosorbide Mononitrate ER [Imdur] 30 mg PO QAM 06/03/19 Ezetimibe [Zetia] 10 mg PO QAM 06/02/20 Empaglifloz/Linaglip/Metformin [Trijardy Xr 12.5-2.5-1,000 mg] 2 tab PO QAM 10/24/22 Losartan [Cozaar] 25 mg PO QAM 10/24/22 Multivitamins, Thera [Multivitamin (formulary)] 1 tab PO QAM 07/04/23 Vitamin E (Dl,Tocopheryl Acet) [Vitamin E (400 Iu = 180 mg)] 400 unit PO QAM 07/04/23 Controlled Substance Measures - Controlled Substance Measures Is patient prescribed a controlled substance at discharge?: No
== END ==
LOC: PNWHC3 14:13
PROVIDERS: ATTEND Specialist
DX: M50.30 Other cervical disc degeneration, unspecified cervical region (principal); M47.812 Spondylosis without myelopathy or radiculopathy, cervical region; M16.12 Unilateral primary osteoarthritis, left hip; Z87.891 Personal history of nicotine dependence; Z88.5 Allergy status to narcotic agent
CPT/HCPCS: 99211

== ENCOUNTER → 2023-09-12 | Outpatient (CLI) | payer MEDICARE, BC ==
--- NOTE | 2023-09-12 12:53 | US ---
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 0.7 X 0.7 x 0.7 cm, mid mid, solid or almost completely solid, hypoechoic nodule, which is wider than tall, with smooth margins, without echogenic foci. TR 4 Prior size: 0.6 x 0.6 x 0.6 cm LEFT: # of nodules measured on left: 1 1. 0.5 X 0.4 x 0.4 cm, upper mid, cystic or almost completely cystic, very hypoechoic nodule, which is wider than tall, with smooth margins, with echogenic foci. Prior size: 0.4 x 0.4 x 0.3 cm ISTHMUS: # of nodules measured in the isthmus: 0 Bilateral neck scanned, no evidence of lymphadenopathy. IMPRESSION: Subcentimeter bilateral thyroid nodules with NO nodule meeting criteria for biopsy. Recommend continu ed surveillance. 2017 ACR TI-RADS LEVEL: TR-RADS 4 - Moderately Suspicious: Follow if > 1 cm, FNA if > 1.5 cm *Highest TI-RADS level nodule reported
== END | disposition home or self-care (01) ==
LOC: RADUSWWP 12:24
PROVIDERS: ATTEND Family Medicine
DX: E04.2 Nontoxic multinodular goiter (principal)
CPT/HCPCS: 76536

== ENCOUNTER → 2023-09-13 | Day surgery (SDC) | payer MEDICARE, BC ==
[~2023-09-13] MED LIST changes: +IOPAMIDOL M200 10 ML VIAL ONE; +ROPIVACAINE 5MG/ML 20ML VIAL ONE; +methylPREDNISolone ACETATE 40 MG/ML 1 ML VIAL ONE
[2023-09-13 10:45] LABS: Glucose,Whole Blood 135 mg/dL (70-110)
[2023-09-13 10:48] VITALS: TEMP 98
--- NOTE | 2023-09-13 11:07 | P.PCN ---
Date of Procedure: 09/13/23 Procedure(s) Performed: Procedure =left hip intra-articular steroid injection with fluoroscopic guidance. 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 Postoperative diagnosis= same as preop Anesthesia: Ropivacaine 0.5% CML for skin and subcu infiltration. Surgeon: Marvin Huggins Pathology: none sent Condition: stable Disposition: PACU Description of Procedure: Patient was seen and identified in the preoperative holding area, risk and benefits, complications ,and alternatives of the procedure were discussed with the patient and patient agreed with the preceding, patient signed the consent , and vital signs were monitored throughout the procedure and it was stable. The patient was taken to the operating room and placed in supine position the groin area was prepped with chlorhexidine 3 and draped with the standard fashion. Local anesthetic was used with lidocaine 1% then using 25 -gauge needle, under direct fluoroscopy and anterior posterior image of the hip joint was ascertained. A 22-gauge Quincke 5 inches long needle was then advanced to the femoral neck until contact with bone was made. After negative aspiration for blood, 3 mL of Omnipaque was then injected to confirm placement of needle into the joint capsule. Once correct position was confirmed and after negative aspiration for blood, a solution consisting of 5 ML's of 0.5% Marcaine with 40 mg/1 mL of Depo-Medrol was administered. A washout image was then obtained to confirm adequate spread within the joint capsule. Needle was removed, and a Band-Aid was placed. Patient tolerated procedure well with no complications
[2023-09-13 11:09] VITALS: BP 160/73; PULSE 59; RESP 16
--- NOTE | 2023-09-13 11:14 | FL ---
Fluoroscopy History: RT LARGE BURSA JOINT INJ RT hip injection with Al Vlad. 5.1 sec fluoro time. .[id number] DAP. 1 image saved
== END ==
LOC: ORPAIN 10:09
PROVIDERS: ATTEND Specialist
DX: M16.12 Unilateral primary osteoarthritis, left hip (principal); E11.9 Type 2 diabetes mellitus without complications; Z79.82 Long term (current) use of aspirin; Z88.1 Allergy status to other antibiotic agents
CPT/HCPCS: 20610; Q9966; J2795; J1010

== ENCOUNTER → 2023-10-07 | Outpatient (CLI) | payer MEDICARE, BC ==
[2023-10-07 14:53] VITALS: BP 110/74; PULSE 75; RESP 16; TEMP 97.3
--- NOTE | 2023-10-07 15:11 | P.PAINPG ---
PQRS Measure Charge Sheet Comment: A 72 yr old male with a history of severe and chronic neck and L hip pain secondary to DJD, DDD, spondylosis and facet arthropathy without myelopathy presents today for evaluation s/p L Hip intra articular injection #4. Pt states he experienced 100 % pain relief x 2-3 wks s/p procedure. Pain level is provo ked at 7 /10 in intensity, constant, localized in the L hip, achy in character without shooting pain. Pain is provoked by weight bearing activity. PT x 6 wks which ended in Jan 2023 which was ineffective. Pain is alleviated w physician guided stretches daily since Jan 2023 (cervical, L hip), injections, medications, repositioning and rest. Interventional pain procedures completed include CHLOE C6-C7 x2, CHLOE C7-T1 x1, L hip intraarticular x4 Patient is currently on Tyl, Ibu Patient denies any side effects of the medication(s), denies excessive drowsiness or sleepiness, denies suicidal ideation and reports that the current pain medication is helping to control the pain and improve activities of daily living. Patient denies any motor or sensory deficits. Patient denies any fever or night sweats, denies any change in the bowel movements or urination. Physical Examination: -Constitutional: Cooperative. Not in acute distress . - Neurologic: Cranial nerve II to XII intact. No focal neurological deficits. - Psychatric: Alert & oriented x 3. Matching mood & appropriate affect. Judgment and insight intact. - Musculoskeletal: Cervical spine: Muscle bulk/ tone/ strength in the bilateral upper extremities normal Vertebral body tenderness to palpation Spurling test positive Distraction test positive Facet loading test positive TTP Thoracic spine Muscle bulk / tone/ strength in the bilateral paraspinal muscles normal Vertebral body tender to palpation over Facet loading test positive TTP Lumbar spine: +L hip Trendelenberg Motor bulk/ tone/ strength lower extremities , thigh and legs : 5/5 Deep tendon reflexes : Normal Knee Jerk. Normal Ankle Jerk . Vertebral body tenderness to palpation over Cifuentes Test positive Lumbar Facet Loading Test positive Straight Leg Raise: positive at 30 degrees right side/ left side Gaenslen's Test positive Sacral spine : Severe tenderness over the Sacroiliac joint: right side / left side Range of motion: Flexion of the lumbar spine <60 degrees Range of motion: Extension of the lumbar spine <20 degrees Gaenslen's Test positive right side / left side Shanna test: positive right side / left side Thigh Thrust Test positive right side / left side Sacral Thrust Test positive right side / left side Imaging: X ray of BL hips from 06/27/[address] non contrast of the L hip from 12/06/22 reviewed Assessment and plan: Chronic neck pain, L hip pain secondary to DDD, spondylosis with facet arthropathy without myelopathy, L Hip DJD Recommendation of follow up w Dr Sands to explore additional treatment options. All questions answered. I have spent less than 30 minutes on patient care today. Dr Colin was available by phone for the evaluation of this patient. The time was used to review the medical records including relevant urine studies and Prescription history (MAPs), review of the available imaging, evaluation and examination of the patient, coordination of care with the medical staff and if applicable referring physicians, as well as creation of the medical record PQRS Narrative: Smoking Status Former smoker Hx Alcohol Use (MH) No Home Medications: Ambulatory Orders Aspirin EC [Ecotrin Low Dose] 81 mg PO QAM 12/28/14 Atorvastatin [Lipitor] 80 mg PO QAM 03/22/16 Venlafaxine HCl ER [Effexor XR] 37.5 mg PO QAM 07/10/18 Omeprazole 20 mg PO QAM 11/18/18 Isosorbide Mononitrate ER [Imdur] 30 mg PO QAM 06/03/19 Ezetimibe [Zetia] 10 mg PO QAM 06/02/20 Empaglifloz/Linaglip/Metformin [Trijardy Xr 12.5-2.5-1,000 mg] 2 tab PO QAM 10/24/22 Losartan [Cozaar] 25 mg PO QAM 10/24/22 Multivitamins, Thera [Multivitamin (formulary)] 1 tab PO QAM 07/04/23 Vitamin E (Dl,Tocopheryl Acet) [Vitamin E (400 Iu = 180 mg)] 400 unit PO QAM 07/04/23 Controlled Substance Measures - Controlled Substance Measures Is patient prescribed a controlled substance at discharge?: No
== END ==
LOC: PNWHC3 14:03
PROVIDERS: ATTEND Specialist
DX: M46.1 Sacroiliitis, not elsewhere classified
CPT/HCPCS: 99211

== ENCOUNTER → 2023-11-14 | Outpatient (CLI) | payer MEDICARE, BC ==
[2023-11-14 13:44] VITALS: BP 133/73; PULSE 70; RESP 18; TEMP 98
--- NOTE | 2023-11-14 15:06 | P.PAINPG ---
PQRS Measure Charge Sheet Comment: A 73 yr old male with a history of severe and chronic neck, back and L hip pain secondary to DJD, radiculopathy, spondylosis and facet arthropathy without myelopathy presents today for evaluation . Pain level is provoked at 7 /10 in intensity, constant, localized in the L hip, achy in character without shooting pain. Pain is provoked by weight bearing activity and PT x 6 wks which ended in Jan 2023 which was ineffective. Pain is alleviated w physician guided stretches daily since Jan 2023 (cervical, L hip), injections, medications, repositioning and rest. Interventional pain procedures completed include CHLOE C6-C7 x2, CHLOE C7-T1 x1, L hip intraarticular x4 Patient is currently on Tyl, Ibu Patient denies any side effects of the medication(s), denies excessive drowsiness or sleepiness, denies suicidal ideation and reports that the current pain medication is helping to control the pain and improve activities of daily living. Patient denies any motor or sensory deficits. Patient denies any fever or night sweats, denies any change in the bowel movements or urination. Physical Examination: -Constitutional: Cooperative. Not in acute distress . - Neurologic: Cranial nerve II to XII intact. No focal neurological deficits. - Psychatric: Alert & oriented x 3. Matching mood & appropriate affect. Ju dgment and insight intact. - Musculoskeletal: Cervical spine: Muscle bulk/ tone/ strength in the bilateral upper extremities normal Vertebral body tenderness to palpation Spurling test positive Distraction test positive Facet loading test positive TTP Thoracic spine Muscle bulk / tone/ strength in the bilateral paraspinal muscles normal Vertebral body tender to palpation over Facet loading test positive TTP Lumbar spine: +L hip Trendelenberg Motor bulk/ tone/ strength lower extremities , thigh and legs : 5/5 Deep tendon reflexes : Normal Knee Jerk. Normal Ankle Jerk . Vertebral body tenderness to palpation over L4 Cifuentes Test positive Lumbar Facet Loading Test positive Straight Leg Raise: positive at 30 degrees right side/ left side Gaenslen's Test positive Sacral spine : Severe tenderness over the Sacroiliac joint: right side / left side Range of motion: Flexion of the lumbar spine <60 degrees Range of motion: Extension of the lumbar spine <20 degrees Gaenslen's Test positive right side / left side Shanna test: positive right side / left side Thigh Thrust Test positive right side / left side Sacral Thrust Test positive right side / left side Imaging: X ray of BL hips from 06/27/[address] non contrast of the L hip from 12/06/22 reviewed MRI non contrast lumbar spine from 03/14/22 reviewed Assessment and plan: Chronic neck pain, back, L hip pain secondary to radiculopathy, L3-L5 spondylosis with facet arthropathy without myelopathy, L Hip DJD Recommendation of CHLOE L4-L5 #1. Risks, benefits of procedure discussed and pt verbalized understanding . Protocol for discontinuation/ continuation of medications arianne procedure discussed. All questions answered. I have spent less than 30 minutes on patient care today. Dr Colin was available by phone for the evaluation of this patient. The time was used to review the medical records including relevant urine studies and Prescription history (MAPs), review of the available imaging, evaluation and examination of the patient, coordination of care with the medical staff and if applicable referring physicians, as well as creation of the medical record - Pain Location Lower Back Pharmacological Interventions: Epidural PQRS Narrative: Smoking Status Former smoker Hx Alcohol Use (MH) No Home Medications: Ambulatory Orders Aspirin EC [Ecotrin Low Dose] 81 mg PO QAM 12/28/14 Atorvastatin [Lipitor] 80 mg PO QAM 03/22/16 Venlafaxine HCl ER [Effexor XR] 37.5 mg PO QAM 07/10/18 Omeprazole 20 mg PO QAM 11/18/18 Isosorbide Mononitrate ER [Imdur] 30 mg PO QAM 06/03/19 Ezetimibe [Zetia] 10 mg PO QAM 06/02/20 Empaglifloz/Linaglip/Metformin [Trijardy Xr 12.5-2.5-1,000 mg] 2 tab PO QAM 10/24/22 Losartan [Cozaar] 25 mg PO QAM 10/24/22 Multivitamins, Thera [Multivitamin (formulary)] 1 tab PO QAM 07/04/23 Vitamin E (Dl,Tocopheryl Acet) [Vitamin E (400 Iu = 180 mg)] 400 unit PO QAM 07/04/23 Controlled Substance Measures - Controlled Substance Measures Is patient prescribed a controlled substance at discharge?: No
== END ==
LOC: PNWHC3 13:27
PROVIDERS: ATTEND Specialist
DX: M47.26 Other spondylosis with radiculopathy, lumbar region (principal); M54.2 Cervicalgia; M16.12 Unilateral primary osteoarthritis, left hip; Z87.891 Personal history of nicotine dependence; Z88.5 Allergy status to narcotic agent
CPT/HCPCS: 99211

== ENCOUNTER → 2023-12-03 | Day surgery (SDC) | payer MEDICARE, BC ==
[~2023-12-03] MED LIST changes: -ROPIVACAINE 5MG/ML 20ML VIAL ONE
[2023-12-03] MEDS: IV FLUID CONTINUATION 1,000 ML IV ONE (12:25)
[2023-12-03 12:42] LABS: Glucose,Whole Blood 225 mg/dL (70-110)
[2023-12-03 12:43] VITALS: RESP 16; TEMP 98.1
[2023-12-03] MEDS: INSULIN ASPART (NovoLOG) 100 UNIT/ML VIAL SQ ONE (12:51)
--- NOTE | 2023-12-03 13:47 | P.PCN ---
Date of Procedure: 12/03/23 Procedure(s) Performed: PREOPERATIVE DIAGNOSIS: 1- Lumbar Degenerative Disc Diseases 2-Lumbar spondylosis with Facet arthropathy without myelopathy. 3-lumbar Radiculopathy POSTOPERATIVE DIAGNOSIS: 1-lumbar degenerative disc disease. 2-lumbar spondylosis with facet arthropathy without myelopathy. 3-lumbar radiculopathy. PROCEDURE 1. Lumbar epidural steroid injection under fluoroscopic guidance at the L4- 5level. (Fluoroscopy imaging was available in radiology department) 2. Lumbar epidurogram. ANESTHESIA: Lidocaine 1% 3 and then only. EBL: Minimal PROCEDURE INDICATION: The patient with low back pain and radiculitis symptoms unresponsive to conservative treatment. Fluoroscopy was used to optimize visualization of the needle placement and to maximize safety. PROCEDURE DESCRIPTION / TECHNIQUE: The patient was seen and identified in the preoperative area. Risks, benefits, complications including but not limited to infections ,bleeding ,allergic reaction to the medications ,nerve damage and not complete pain releife , and alternatives were discussed with the patient. The patient agreed to proceed with the procedure and signed the consent, and vital signs were stable. Patient was taken to the OR and time out was completed. The patient was placed in the prone position on procedure table and a pillow was placed under the abdomen to reduce lumbar lordosis. The lumbosacral area was prepped and draped in the usual sterile fashion.ere closely monitored during the procedure. Vital signs was monitered during the entire procedure. Using anterior-posterior fluoroscopy, the L4-5 interlaminar space was identified and the skin over this site was marked and then infiltrated with 1% lidocaine subcutaneously. Subsequently, a 20-gauge Tuohy epidural needle was inserted and advanced toward the epidural space using the ``Loss of resistance technique and guided by AP and lateral fluoroscopy. The correct needle position in the epidural space was verified with the injection of 2 mL of the water soluble contrast dye Isovue 200 contrast and observing an excellent epidurogram with th e epidural spread of the dye, after negative aspiration for blood and CSF and in the absence of paresthesias. Again after negative aspiration, a 5 ml mixture containing 40 mg of Depo-medrol ( Preservetive Free ), and 2 ml of preservative free Normal Saline, and 2 ml of preservative free lidocaine 1% solution was injected and a washout of epidurogram was seen. Needle was withdrawn intact, skin was cleansed, and bandages were applied. COMPLICATIONS: None DISPOSITION / PLANS: The patient was placed in a supine position and transferred to the recovery area in a stable condition for observation. There was no evidence of lower extremity motor or sensory deficit after the procedure. Patient was discharged from the recovery room after meeting discharge criteria. Home discharge instructions were given to the patient by the staff. The patient was reexamined prior to discharge. The patient will schedule a follow up in the clinic in 2-4 weeks.
[2023-12-03 13:53] VITALS: BP 138/77; PULSE 56
--- NOTE | 2023-12-03 13:58 | FL ---
Fluoroscopy History: Lumbar Epid Inj LESI, 1SEC FL TIME, [id number] [facility], , 12/03/2023 1:56 PM
[2023-12-03 14:00] LABS: Glucose,Whole Blood 197 mg/dL (70-110)
== END ==
LOC: ORPAIN 12:03
PROVIDERS: ATTEND Specialist
CPT/HCPCS: 62323

== ENCOUNTER → 2023-12-16 | Outpatient (CLI) | payer MEDICARE, BC ==
[2023-12-16 14:22] VITALS: BP 128/81; PULSE 62; RESP 16
--- NOTE | 2023-12-16 14:42 | P.PAINPG ---
Objective - Vital Signs Vital signs: Intake & Output 12/15/23 12/16/23 12/16/23 18:59 06:59 18:59 Weight 127.006 kg PQRS Measure Charge Sheet Comment: A 73 yr old male with a history of severe and chronic neck, back and L hip pain secondary to DJD, radiculopathy, spondylosis and facet arthropathy without myelopathy presents today for evaluation s/p CHLOE L4-L5 #1. Pt states he experienced 75% pain relief x 2 wks s/p procedure. Pain level is provoked at 6 /10 in intensity, intermittent, localized in the lumbar spine, achy in character without shooting pain . Pain is provoked by standing/ walking for periods > 15 min and PT x 6 wks which ended in Jan 2023 and was ineffective. Pain is alleviated w physician guided stretches daily since Jan 2023 (cervical, lumbar, L hip), injections, medications, repositioning and rest. Interventional pain procedures completed include CHLOE C6-C7 x2, CHLOE C7-T1 x1, L hip intraarticular x4, CHLOE L4-L5 x1 Patient is currently on Tyl, Ibu, ASA Patient denies any side effects of the medication(s), denies excessive drowsiness or sleepiness, denies suicidal ideation and reports that the current pain medication is helping to control the pain and improve activities of daily living. Patient denies any motor or sensory deficits. Patient denies any fever or night sweats, denies any change in the bowel movements or urination. Physical Examination: -Constitutional: Cooperative. Not in acute distress . - Neurologic: Cranial nerve II to XII intact. No focal neurological deficits. - Psychatric: Alert & oriented x 3. Matching mood & appropriate affect. Judgment and insight intact. - Musculoskeletal: Cervical spine: Muscle bulk/ tone/ strength in the bilateral upper extremities normal Vertebral body tenderness to palpation Spurling test positive Distraction test positive Facet loading test positive TTP Thoracic spine Muscle bulk / tone/ strength in the bilateral paraspinal muscles normal Vertebral body tender to palpation over Facet loading test positive TTP Lumbar spine: +L hip Trendelenberg Motor bulk/ tone/ strength lower extremities , thigh and legs : 5/5 Deep tendon reflexes : Normal Knee Jerk. Normal Ankle Jerk . Vertebral body tenderness to palpation over L4 Cifuentes Test positive Lumbar Facet Loading Test positive BL L4-L5/ L5-S1 Straight Leg Raise: positive at 30 degrees right side/ left side Gaenslen's Test positive Sacral spine : Severe tenderness over the Sacroiliac joint: right side / left side Range of motion: Flexion of the lumbar spine <60 degrees Range of motion: Extension of the lumbar spine <20 degrees Gaenslen's Test positive right side / left side Shanna test: positive right side / left side Thigh Thrust Test positive right side / left side Sacral Thrust Test positive right side / left side Imaging: X ray of BL hips from 06/27/[address] non contrast of the L hip from 12/06/22 reviewed MRI non contrast lumbar spine from 03/14/22 reviewed Assessment and plan: Chronic neck pain, back, L hip pain secondary to radiculopathy, L3-L5 spondylosis with facet arthropathy without myelopathy, L Hip DJD Recommendation of BL MBB L4-L5, L5-S1 #1. Risks, benefits of procedure discussed and pt verbalized understanding . Protocol for discontinuation/ continuation of medications arianne procedure discussed. Minimal anesthesia including Fentanyl and Versed if clinically indicated. All questions answered. I have spent less than 30 minutes on patient care today. Dr Colin was available by phone for the evaluation of this patient. The time was used to review the medical records including relevant urine studies and Prescription history (MAPs), review of the available imaging, evaluation and examination of the patient, coordination of care with the medical staff and if applicable referring physicians, as well as creation of the medical record PQRS Narrative: Smoking Status Former smoker Hx Alcohol Use (MH) No Home Medications: Ambulatory Orders Atorvastatin [Lipitor] 80 mg PO QAM 03/22/16 Venlafaxine HCl ER [Effexor XR] 37.5 mg PO QAM 07/10/18 Omeprazole 20 mg PO QAM 11/18/18 Isosorbide Mononitrate ER [Imdur] 30 mg PO QAM 06/03/19 Ezetimibe [Zetia] 10 mg PO QAM 06/02/20 Losartan [Cozaar] 25 mg PO QAM 10/24/22 Multivitamins, Thera [Multivitamin (formulary)] 1 tab PO QAM 07/04/23 Vitamin E (Dl,Tocopheryl Acet) [Vitamin E (400 Iu = 180 mg)] 400 unit PO QAM 07/04/23 Aspirin 81 mg PO DAILY 11/28/23 Empagliflozin/Metformin HCl [Synjardy Xr 25-1,000 mg Tablet] 1 tab PO DAILY 11/28/23 Ibuprofen [Motrin] 600 mg PO Q6HR PRN 11/28/23 Semaglutide [Ozempic] 0.25 mg SQ HERNANDEZ 11/28/23 Controlled Substance Measures - Controlled Substance Measures Is patient prescribed a controlled substance at discharge?: No
== END ==
LOC: PNWHC3 14:07
PROVIDERS: ATTEND Specialist
DX: M47.22 Other spondylosis with radiculopathy, cervical region (principal); M16.12 Unilateral primary osteoarthritis, left hip; Z87.891 Personal history of nicotine dependence; Z88.5 Allergy status to narcotic agent
CPT/HCPCS: 99211

== ENCOUNTER 2024-01-23 11:44 | Day surgery (SDC) | payer MEDICARE, BC ==
[2024-01-22 12:52] VITALS: BMI 35.6
[~2024-01-23 11:44] MED LIST changes: -IOPAMIDOL M200 10 ML VIAL ONE; -methylPREDNISolone ACETATE 40 MG/ML 1 ML VIAL ONE
[2024-01-23 12:34] VITALS: RESP 16; TEMP 98.1
[2024-01-23 12:41] LABS: Glucose,Whole Blood 118 mg/dL (70-110)
[2024-01-23] MEDS ORDERED: ROPIVACAINE 5MG/ML 20ML VIAL ONE (12:45)
--- NOTE | 2024-01-23 13:06 | P.PCN ---
Date of Procedure: 01/23/24 Procedure(s) Performed: My PREOPERATIVE DIAGNOSIS : 1- Lumbar spondylosis with Facet Arthropathy wi thout myelopathy . 2- Lumber degenerative disc disease POSTOPERATIVE DIAGNOSIS: 1- Lumbar spondylosis with Facet Arthropathy without myelopathy . 2- Lumber degenerative disc disease PROCEDURE: Diagnostic bilateral L3 , L4 , and L5 medial branch block under fluoroscopy guidance(fluoroscopy images in the radiology Department ) ( To target the facet joint between Bilateral L4-5 , and L5-S1 )#1st ANESTHESIA: Ropivacaine 0.5% 6 mL for skin and subcu infiltration EBL: Minimal COMPLICATION: None PROCEDURE INDICATION: Chronic low back pain secondary to Facet arthropathy unresponsive to conservative treatment. PROCEDURE DESCRIPTION: the patient was seen and identified in the preop holding area , risks and benefits and possible complications of the procedure and alternative were discussed with the patient, and the patient agreed to proceed with the procedure and signed the consent and vital signs monitored during the procedure and fluoroscopy was used to maximize the benefit and accuracy of the needle placement, patient was taken to the procedure room and placed in prone position vital signs monitored in the back prepped with chlorhexidine X3 then under strict sterile technique using a right oblique fluoroscopy ,the junction of the transverse process and the superior articulating process of the right L3 , L4 , and L5 vertebra which corresponding to the fluoroscopy image of the eye of the Vazquez dog on the block side for the medial branches and subsequently , after local infiltration of skin and subcu ti ssuies with Ropivacaine 0.5 % , one mL at each level ,then 22-gauge Quincke- type needles , 3 needle was used , each one of them placed at the junction of the base of the transverse process and the superior articular process at the appropriate level, and the needle was advanced until the periosteum contacted, needle placement confirmed with AP oblique and lateral view and after appropriate needle placement confirmed, and after negative aspiration for heme and CSF and there was no paresthesia 1-1/2 mL of Ropivacaine 0.5% used , then half mL injected at each level after negative aspiration the needle subsequently removed and the same procedure repeated for the left side at left side at L3 , L4 and L5 levels. At the end of the procedure and the needles removed and a bandage applied after the skin was cleaned the cleaning solution patient taken to recovery room in stable condition and monitors in the recovery room for 20-30 minutes and discharged home in stable condition after discharge criteria met and patient will follow up with the pain clinic in 2-4 weeks
--- NOTE | 2024-01-23 13:10 | FL ---
Fluoroscopy INDICATION: Pain FINDINGS: Fluoroscopy time: 31.5 seconds. Total dose area product (DAP) in uGy*m?, mGy*cm? (or similar): 0.88128 Images obtained: 5. Yeaddiss are directed towards the lumbar spine IMPRESSION: 1. Documentation of fluoroscopy. [facility] , 01/23/2024 1:08 PM
[2024-01-23 13:31] VITALS: BP 131/80; PULSE 61
== END 2024-01-23 13:43 | disposition home or self-care (01) ==
LOC: ORPAIN 11:44
PROVIDERS: ATTEND Specialist
DX: M47.816 Spondylosis without myelopathy or radiculopathy, lumbar region (principal); M51.369 Other intervertebral disc degeneration, lumbar region without mention of lumbar back pain or lower extremity pain; G89.29 Other chronic pain; E11.9 Type 2 diabetes mellitus without complications; Z79.84 Long term (current) use of oral hypoglycemic drugs; Z79.899 Other long term (current) drug therapy; Z79.82 Long term (current) use of aspirin; Z88.8 Allergy status to other drugs, medicaments and biological substances
CPT/HCPCS: 64493; 64494 ×2; J2795

== ENCOUNTER → 2024-02-24 | Outpatient (CLI) | payer MEDICARE, BC ==
[2024-02-24 14:39] VITALS: BP 126/74; PULSE 62; RESP 17; TEMP 97.8
--- NOTE | 2024-02-24 15:47 | P.PAINPG ---
PQRS Measure Charge Sheet Comment: A 73 yr old male with a history of severe and chronic neck, back and L hip pain secondary to DJD, radiculopathy, spondylosis and facet arthropathy without myelopathy presents today for evaluation s/p BL MBB L4-L5, L5-S1 #1. Pt states he experienced 75% pain relief x 72 hrs s/p procedure. Pain level is provoked at 6 /10 in intensity, intermittent, localized in the lumbar spine, predominantly axial, achy in character without shooting pain. Pain is provoked by standing/ walking for periods > 15 min and PT x 6 wks which ended in Jan 2023 and was ineffective. Pain is alleviated w physician guided stretches daily since Jan 2023 (cervical, lumbar, L hip), injections, medications, repositioning and rest. Interventional pain procedures completed include CHLOE C6-C7 x2, CHLOE C7-T1 x1, L hip intraarticular x4, CHLOE L4-L5 x1, BL MBB L3-L5 x1 Patient is currently on Tyl, Ibu, ASA Patient denies any side effects of the medication(s), denies excessive drowsiness or sleepiness, denies suicidal ideation and reports that the current pain medication is helping to control the pain and improve activities of daily living. Patient denies any motor or sensory deficits. Patient denies any fever or night sweats, denies any change in the bowel movements or urination. Physical Examination: -Constitutional: Cooperative. Not in acute distress . - Neurologic: Cranial nerve II to XII intact. No focal neurological deficits. - Psychatric: Alert & oriented x 3. Matching mood & appropriate affect. Judgment and insight intact. - Musculoskeletal: Cervical spine: Muscle bulk/ tone/ strength in the bilateral upper extremities normal Vertebral body tenderness to palpation Spurling test positive Distraction test positive Facet loading test positive TTP Thoracic spine Muscle bulk / tone/ strength in the bilateral paraspinal muscles normal Vertebral body tender to palpation over Facet loading test positive TTP Lumbar spine: +L hip Trendelenberg Motor bulk/ tone/ strength lower extremities , thigh and legs : 5/5 Deep tendon reflexes : Normal Knee Jerk. Normal Ankle Jerk . Vertebral body tenderness to palpation over L4 Cifuentes Test positive Lumbar Facet Loading Test positive BL L4-L5/ L5-S1 Straight Leg Raise: positive at 30 degrees right side/ left side Gaenslen's Test positive Sacral spine : Severe tenderness over the Sacroiliac joint: right side / left side Range of motion: Flexion of the lumbar spine <60 degrees Range of motion: Extension of the lumbar spine <20 degrees Gaenslen's Test positive right side / left side Shanna test: positive right side / left side Thigh Thrust Test positive right side / left side Sacral Thrust Test positive right side / left side Imaging: X ray of BL hips from 06/27/[address] non contrast of the L hip from 12/06/22 reviewed MRI non contrast lumbar spine from 03/14/22 reviewed Assessment and plan: Chronic neck pain, back, L hip pain secondary to radiculopathy, L3-L5 spondylosis with facet arthropathy without myelopathy, L Hip DJD Recommendation of BL MBB L4-L5, L5-S1 #2. Risks, benefits of procedure discussed and pt verbalized understanding . Protocol for discontinuation/ continuation of medications arianne procedure discussed. Minimal anesthesia including Fentanyl and Versed if clinically indicated. All questions answered. I have spent less than 30 minutes on patient care today. Dr Colin was available by phone for the evaluation of this patient. The time was used to review the medical records including relevant urine studies and Prescription history (MAPs), review of the available imaging, evaluation and examination of the patient, coordination of care with the medical staff and if applicable referring physicians, as well as creation of the medical record PQRS Narrative: Smoking Status Former smoker Hx Alcohol Use (MH) No Home Medications: Ambulatory Orders Atorvastatin [Lipitor] 80 mg PO QAM 03/22/16 Venlafaxine HCl ER [Effexor XR] 37.5 mg PO QAM 07/10/18 Omeprazole 20 mg PO QAM 11/18/18 Isosorbide Mononitrate ER [Imdur] 30 mg PO QAM 06/03/19 Ezetimibe [Zetia] 10 mg PO QAM 06/02/20 Losartan [Cozaar] 25 mg PO QAM 10/24/22 Multivitamins, Thera [Multivitamin (formulary)] 1 tab PO QAM 07/04/23 Vitamin E (Dl,Tocopheryl Acet) [Vitamin E (400 Iu = 180 mg)] 400 unit PO QAM 07/04/23 Aspirin 81 mg PO DAILY 11/28/23 Empagliflozin/Metformin HCl [Synjardy Xr 25-1,000 mg Tablet] 1 tab PO DAILY 11/28/23 Ibuprofen [Motrin] 600 mg PO Q6HR PRN 11/28/23 Semaglutide [Ozempic] 0.25 mg SQ HERNANDEZ 11/28/23 Controlled Substance Measures - Controlled Substance Measures Is patient prescribed a controlled substance at discharge?: No
== END ==
LOC: PNWHC3 13:55
PROVIDERS: ATTEND Specialist
DX: M54.17 Radiculopathy, lumbosacral region (principal); M47.816 Spondylosis without myelopathy or radiculopathy, lumbar region; M16.12 Unilateral primary osteoarthritis, left hip; Z87.891 Personal history of nicotine dependence; Z88.5 Allergy status to narcotic agent
CPT/HCPCS: 99211

== ENCOUNTER → 2024-04-16 | Outpatient (CLI) | payer MEDICARE, BC ==
[2024-04-16 13:33] VITALS: BP 137/94; PULSE 71; RESP 16; TEMP 97.1
--- NOTE | 2024-04-16 13:43 | P.PAINPG ---
Subjective Progress Note Date: 04/16/24 This is Follow-up visit for this 73 yrs old male with a history of severe and chronic neck, back and L hip pain secondary to DJD, radiculopathy, lumbar spondylosis and facet arthropathy without myelopathy presents ,today for evaluation s/p BL MBB L4-L5, L5-S1 #2. Pt states he experienced 75% pain relief x 72 hrs s/p first diagnostic medial branch block. And patient reports that he got 80% improvement of his pain level after the second diagnostic medial branch block and the pain relief lasted for 1 day, Reported that his pain is dropped from 8/10 , to 1-2/10 after the block , pain level is provoked at 6 /10 in intensity, intermittent, localized in the lumbar spine, predominantly axial, achy in character without shooting pain. Pain is provoked by standing/ walking for periods > 15 min and PT x 6 wks which ended in Jan 2023 and was ineffective. Pain is alleviated w physician guided stretches da claritza since Jan 2023 (cervical, lumbar, L hip), injections, medications, repositioning and rest. Interventional pain procedures completed include CHLOE C6-C7 x2, CHLOE C7-T1 x1, L hip intraarticular x4, CHLOE L4-L5 x1, BL MBB L3-L5 x2 Patient is currently on Tyl, Ibu, ASA Patient denies any side effects of the medication(s), denies excessive drowsiness or sleepiness, denies suicidal ideation and reports that the current pain medication is helping to control the pain and improve activities of daily living. Patient denies any motor or sensory deficits. Patient denies any fever or night sweats, denies any change in the bowel movements or urination. Physical Examination: -Constitutional: Cooperative. Not in acute distress . - Neurologic: Cranial nerve II to XII intact. No focal neurological deficit s. - Psychatric: Alert & oriented x 3. Matching mood & appropriate affect. Judgment and insight intact. - Musculoskeletal: Cervical spine: Muscle bulk/ tone/ strength in the bilateral upper extremities normal Vertebral body tenderness to palpation Spurling test positive Distraction test positive Facet loading test positive TTP Thoracic spine Muscle bulk / tone/ strength in the bilateral paraspinal muscles normal Vertebral body tender to palpation over Facet loading test positive TTP Lumbar spine: +L hip Trendelenberg Motor bulk/ tone/ strength lower extremities , thigh and legs : 5/5 Deep tendon reflexes : Normal Knee Jerk. Normal Ankle Jerk . Vertebral body tenderness to palpation over L4 Cifuentes Test positive Lumbar Facet Loading Test positive BL L4-L5/ L5-S1 Straight Leg Raise: positive at 30 degrees right side/ left side Gaenslen's Test positive Sacral spine : Severe tenderness over the Sacroiliac joint: right side / left side Range of motion: Flexion of the lumbar spine <60 degrees Range of motion: Extension of the lumbar spine <20 degrees Gaenslen's Test positive right side / left side Shanna test: positive right side / left side Thigh Thrust Test positive right side / left side Sacral Thrust Test positive right side / left side Imaging: X ray of BL hips from 06/27/[address] non contrast of the L hip from 12/06/22 reviewed MRI non contrast lumbar spine from 03/14/22 reviewed Assessment and plan: Chronic neck pain, back, L hip pain secondary to radiculopathy, L3-L5 spondylosis with facet arthropathy without myelopathy, L Hip DJD Patient had significant improvement of his low back pain after medial branch block L4-5 L5-S1, got 75% decrease in his pain level after the first diagnostic medial branch block and he got 80% relief after the second diagnostic block Recommendation of BL RFA MBB L4-L5, L5-S1 . Risks, benefits of procedure discussed and pt verbalized understanding . Protocol for discontinuation/ continuation of medications arianne procedure discussed. Minimal anesthesia including Fentanyl and Versed if clinically indicated. All questions answered. PQRS Narrative: Smoking Status Former smoker Hx Alcohol Use (MH) No Home Medications: Ambulatory Orders Atorvastatin [Lipitor] 80 mg PO QAM 03/22/16 Venlafaxine HCl ER [Effexor XR] 37.5 mg PO QAM 07/10/18 Omeprazole 20 mg PO QAM 11/18/18 Isosorbide Mononitrate ER [Imdur] 30 mg PO QAM 06/03/19 Ezetimibe [Zetia] 10 mg PO QAM 06/02/20 Losartan [Cozaar] 25 mg PO QAM 10/24/22 Multivitamins, Thera [Multivitamin (formulary)] 1 tab PO QAM 07/04/23 Vitamin E (Dl,Tocopheryl Acet) [Vitamin E (400 Iu = 180 mg)] 400 unit PO QAM 07/04/23 Aspirin 81 mg PO DAILY 11/28/23 Empagliflozin/Metformin HCl [Synjardy Xr 25-1,000 mg Tablet] 1 tab PO DAILY 11/28/23 Ibuprofen [Motrin] 600 mg PO Q6HR PRN 11/28/23 Semaglutide [Ozempic] 0.25 mg SQ HERNANDEZ 11/28/23 Controlled Substance Measures - Controlled Substance Measures Is patient prescribed a controlled substance at discharge?: No Objective - Vital Signs Vital signs: Vital Signs Temp 97.1 F L 04/16/24 13:29 Pulse 71 04/16/24 13:29 Resp 16 04/16/24 13:29 BP 137/94 04/16/24 13:29 Pulse Ox 97 04/16/24 13:29 FiO2 Intake & Output 04/15/24 04/16/24 04/16/24 18:59 06:59 18:59 Weight 117.934 kg PQRS Measure Charge Sheet Measure #130: Documentation of Current Meds in Medical Chart: Patient's medications documented in chart Mode of Arrival: Ambulatory - Pain Location Bilateral Lower Back Pharmacological Interventions: Block, Epidural, PRN Medication PQRS Narrative: Smoking Status Former smoker Narcotic Agreement Date Signed 02/24/24 Blood Pressure 137/94 Pain Intensity [Bilateral 8 Lower Back] Scale Used Numeric (1 - 10) Hx Alcohol Use (MH) No Home Medications: Ambulatory Orders Atorvastatin [Lipitor] 80 mg PO QAM 03/22/16 Venlafaxine HCl ER [Effexor XR] 37.5 mg PO QAM 07/10/18 Omeprazole 20 mg PO QAM 11/18/18 Isosorbide Mononitrate ER [Imdur] 30 mg PO QAM 06/03/19 Ezetimibe [Zetia] 10 mg PO QAM 06/02/20 Losartan [Cozaar] 25 mg PO QAM 10/24/22 Multivitamins, Thera [Multivitamin (formulary)] 1 tab PO QAM 07/04/23 Vitamin E (Dl,Tocopheryl Acet) [Vitamin E (400 Iu = 180 mg)] 400 unit PO QAM 07/04/23 Aspirin 81 mg PO DAILY 11/28/23 Empagliflozin/Metformin HCl [Synjardy Xr 25-1,000 mg Tablet] 1 tab PO DAILY 11/28/23 Ibuprofen [Motrin] 600 mg PO Q6HR PRN 11/28/23 Semaglutide [Ozempic] 0.25 mg SQ FR 11/28/23 Controlled Substance Measures - Controlled Substance Measures Is patient prescribed a controlled substance at discharge?: No
== END ==
LOC: PNWHC3 13:19
PROVIDERS: ATTEND Specialist
DX: M47.26 Other spondylosis with radiculopathy, lumbar region (principal); G89.29 Other chronic pain; Z87.891 Personal history of nicotine dependence; Z88.5 Allergy status to narcotic agent
CPT/HCPCS: 99211

== ENCOUNTER 2024-05-08 11:44 | Day surgery (SDC) | payer MEDICARE, BC ==
[2024-05-06 12:43] VITALS: BMI 33.7
[2024-05-08 12:45] VITALS: TEMP 98.2
[2024-05-08 12:57] LABS: Glucose,Whole Blood 105 mg/dL (70-110)
[2024-05-08] MEDS: SODIUM CHLORIDE 0.9% 500 ML 500 ML IV ONE (12:57)
[2024-05-08] MEDS ORDERED: MIDAZOLAM 2 MG/2 ML VIAL ONE (13:41)
[2024-05-08] MEDS ORDERED: ROPIVACAINE 5MG/ML 20ML VIAL ONE (13:41)
[2024-05-08] MEDS ORDERED: fentaNYL (PF) 50 MCG/ML 2 ML AMP ONE (13:41)
[2024-05-08] MEDS: IV FLUID CONTINUATION 1,000 ML IV ONE (14:20)
[2024-05-08 14:23] VITALS: RESP 16
--- NOTE | 2024-05-08 14:25 | FL ---
EXAMINATION TYPE: FL guided pain mgmt statistic DATE OF EXAM: 05/08/2024 CLINICAL INDICATION: Male, 73 years old with history of Kyle Lumbar Rad Freq; PHH, pain. TECHNIQUE: Fluoroscopy. COMPARISON: None. FINDINGS: Fluoroscopic guidance was provided during pain relief procedure performed by Dr. Mccrary . A total of 51.8 seconds of fluoroscopic time was utilized during the procedure and 5 spot images are acquired. Images acquired shows needle localization at several levels in the lumbar spine. Multileve l degenerative changes are present. Total DAP: [id number] mGym2. IMPRESSION: As Above. [facility], , 05/08/2024 2:22 PM
--- NOTE | 2024-05-08 14:25 | P.PCN ---
Description of Procedure: Preprocedure diagnosis. 1. Lumbar spondylosis with facet joint arthropathy without myelopathy. 2. Lumbar degenerative disc disease. Procedure diagnosis. 1. Lumbar spondylosis with facet joint arthropathy without myelopathy. Space 2. Lumbar degenerative disc disease. Procedure.Bilateral radiofrequency thermocoagulation L3, L4 and L5 medial branch, with fluoroscopic guidance (fluoroscopy images are available in the radiology department) (to Denervate the facet joint at bilateral L4- 5 and L5-S1 levels) Anesthesia. Moderate sedation with intravenous Versed 2 mg and fentanyl 100 g and local infiltration with Lidocaine. Continuous pulse OX,BP,EKG and verbal communication was maintained with patient. Time. Start . Stop . EBL minimal. Procedure indication. The patient with low back pain secondary to lumbar facet arthropathy who he had more than 50% relief of her pain with previous diagnostic lumbar medial branch block with local anesthetics.The patient was seen and identified in the preoperative area. Risks: Benefits, complications, including but not limited to risk of infection, bleeding, ALLERGIC reaction to the medications and no complete pain relief and alternatives were discussed with the patient, the patient admitted to proceed with the procedure and signed the consent. Procedure description/technique. Patient was taken to the OR and timeout was completed. The patient was placed in prone position on the procedure table. The lumbar area was prepped and draped in the usual sterile fashion. After injecting 5 ml of 1% Lidocaine subcutaneously,using AP and then oblique, lateral view of fluoroscopy, 18-gauge 100 mm radiofrequency cannula with a 10 mm active tip was advanced and guided by fluoroscopy at the junction of supirior articular process with RIGHT ala of the sacrum, transverse process of L4&L5. Each site then underwent positive sensory testing with 50 Hz and 0-1 V and ne gative motor testing at 2.5 Hz and 0-3 V with local stimulation but no radicular symptoms down the leg. Thereafter each sites underwent radiofrequency thermocoagulation at 80C for 90 seconds after injecting 1 mL of preservative- free 0.5% ropivacaine. Repeat radiofrequency ablation was done at each points after rotating the needle 180 with same setting. This same procedure was repeated twice on the LEFT side at the junction of superior articular process with ala of sacrum,transverse process of L4, L5 with the same settings after positive sensory,negative motor stimulation and infiltration of 1.0 ml 5% Ropivacaine at each site . RF needles were taken out. At the end of the procedure the skin was cleansed and Band-Aids were applied. Disposition patient tolerated the procedure well. No complication. She was placed in supine position and transferred to the recovery area in stable condition for observation and was discharged home from recovery room after meeting discharge criteria. Discharge instructions given to the patient by the staff. The patient were examined prior to discharge the patient will schedule a follow-up in the clinic in 2-4 weeks.
[2024-05-08 14:35] VITALS: BP 122/73; PULSE 65
== END 2024-05-08 14:55 | disposition home or self-care (01) ==
LOC: ORPAIN 11:44
PROVIDERS: ATTEND Pain Medicine Interventional Pain Medicine
DX: M47.816 Spondylosis without myelopathy or radiculopathy, lumbar region (principal); M51.369 Other intervertebral disc degeneration, lumbar region without mention of lumbar back pain or lower extremity pain; Z79.82 Long term (current) use of aspirin; Z79.1 Long term (current) use of non-steroidal anti-inflammatories (NSAID); Z88.1 Allergy status to other antibiotic agents
CPT/HCPCS: 64635; 64636; J2250; J3010; J2795; 99152; 99153

== ENCOUNTER → 2024-05-27 | Outpatient (CLI) | payer MEDICARE, BC ==
[2024-05-27 15:40] VITALS: BP 112/71; PULSE 87; RESP 18; TEMP 96.7
--- NOTE | 2024-05-27 19:10 | P.PAINPG ---
PQRS Measure Charge Sheet Comment: A 73 yrs old male with a history of severe and chronic neck, back and L hip pain secondary to DJD, radiculopathy, lumbar spondylosis and facet arthropathy without myelopathy presents today for evaluation s/p BL RFA MBB L4-L5, L5-S1. Pt states he experienced 50 % pain relief s/p procedure. Pt states his pain level is provoked at 6 /10 in intensity, intermittent, localized in the lumbar spine, predominantly axial, achy in character w occasional shooting pain to the L thigh. Pain is provoked by lifting and PT x 6 wks which ended in Jan 2023 and was ineffective. Pain is alleviated w physician guided stretches daily since Jan 2023 (cervical, lumbar, L hip), injections, medications, repositioning and rest. Interventional pain procedures completed include CHLOE C6-C7 x2, CHLOE C7-T1 x1, L hip intraarticular x4, CHLOE L4-L5 x1, BL RFA L3-L5 (05/08/24) Patient is currently on Tyl, Ibu, ASA Patient denies any side effects of the medication(s), denies excessive drowsiness or sleepiness, denies suicidal ideation and reports that the current pain medication is helping to control the pain and improve activities of daily living. Patient denies any motor or sensory deficits. Patient denies any fever or night sweats, denies any change in the bowel movements or urination. Physical Examination: -Constitutional: Cooperative. Not in acute distress . - Neurologic: Cranial nerve II to XII intact. No focal neurological deficits. - Psychatric: Alert & oriented x 3. Matching mood & appropriate affect. Judgment and insight intact. - Musculoskeletal: Cervical spine: Muscle bulk/ tone/ strength in the bilateral upper extremities normal Vertebral body tenderness to palpation Spurling test positive Distraction test positive Facet loading test positive TTP Thoracic spine Muscle bulk / tone/ strength in the bilateral paraspinal muscles normal Vertebral body tender to palpation over Facet loading test positive TTP Lumbar spine: +L hip Trendelenberg Motor bulk/ tone/ strength lower extremities , thigh and legs : 5/5 Deep tendon reflexes : Normal Knee Jerk. Normal Ankle Jerk . Vertebral body tenderness to palpation over L4 Cifuentes Test positive Lumbar Facet Loading Test positive BL L4-L5/ L5-S1 Straight Leg Raise: positive at 30 degrees right side/ left side Gaenslen's Test positive Sacral spine : Severe tenderness over the Sacroiliac joint: right side / left side Range of motion: Flexion of the lumbar spine <60 degrees Range of motion: Extension of the lumbar spine <20 degrees Gaenslen's Test positive right side / left side Shanna test: positive right side / left side Thigh Thrust Test positive right side / left side Sacral Thrust Test positive right side / left side Imaging: X ray of BL hips from 06/27/[address] non contrast of the L hip from 12/06/22 reviewed MRI non contrast lumbar spine from 03/14/22 reviewed Assessment and plan: Chronic neck pain, back, L hip pain secondary to radiculopathy, L3-L5 spondylosis with facet arthropathy without myelopathy, L Hip DJD Recommendation of BL iliolumbar ligament injection #1 and medication management. Risks, benefits of procedure discussed and pt verbalized understanding . Protocol for discontinuation/ continuation of medications arianne procedure discussed. Opiate/ narcotic agreement signed 05/27/24. [place] 5/325mg #60 w 1 RF. Use, side effects, adverse reactions, safe storage discussed. All questions answered. I have spent less than 30 minutes on patient care today. Dr Colin was available by phone for the evaluation of this patient. The time was used to review the medical records including relevant urine studies and Prescription history (MAPs), review of the available imaging, evaluation and examination of t he patient, coordination of care with the medical staff and if applicable referring physicians, as well as creation of the medical record PQRS Narrative: Smoking Status Former smoker Narcotic Agreement Date Signed 02/24/24 Hx Alcohol Use (MH) No Home Medications: Ambulatory Orders Atorvastatin [Lipitor] 80 mg PO QAM 03/22/16 Venlafaxine HCl ER [Effexor XR] 37.5 mg PO QAM 07/10/18 Omeprazole 20 mg PO QAM 11/18/18 Isosorbide Mononitrate ER [Imdur] 30 mg PO QAM 06/03/19 Ezetimibe [Zetia] 10 mg PO QAM 06/02/20 Losartan [Cozaar] 25 mg PO QAM 10/24/22 Multivitamins, Thera [Multivitamin (formulary)] 1 tab PO QAM 07/04/23 Vitamin E (Dl,Tocopheryl Acet) [Vitamin E (400 Iu = 180 mg)] 400 unit PO QAM 07/04/23 Aspirin 81 mg PO DAILY 11/28/23 Empagliflozin/Metformin HCl [Synjardy Xr 25-1,000 mg Tablet] 1 tab PO DAILY 11/28/23 Ibuprofen [Motrin] 600 mg PO Q6HR PRN 11/28/23 Semaglutide [Ozempic] 0.25 mg SQ FR 11/28/23 HYDROcodone/APAP 5-325MG [[place] 5-325] 1 tab PO BID PRN 30 Days #60 tab 05/27/24 HYDROcodone/APAP 5-325MG [[place] 5-325] 1 tab PO BID PRN 30 Days #60 tab 05/27/24 Controlled Substance Measures - Controlled Substance Measures Is patient prescribed a controlled substance at discharge?: Yes When asked, does pt state using other controlled substances?: No If prescribed controlled substance>3 days was MAPS reviewed?: Yes If Rx opioid, was Start Talking consent form obtained?: Yes Was information provided regarding opioid addiction?: Yes
== END ==
LOC: PNWHC3 14:07
PROVIDERS: ATTEND Specialist
DX: M47.26 Other spondylosis with radiculopathy, lumbar region (principal); G89.29 Other chronic pain; M54.2 Cervicalgia; M16.12 Unilateral primary osteoarthritis, left hip; Z87.891 Personal history of nicotine dependence; Z88.6 Allergy status to analgesic agent
CPT/HCPCS: 99212

== ENCOUNTER 2024-06-09 12:37 | Day surgery (SDC) | payer MEDICARE, BC ==
[2024-06-09] MEDS ORDERED: LACTATED RINGERS 1,000 ML IV SCH (13:03)
[2024-06-09 13:17] LABS: Glucose,Whole Blood 124 mg/dL (70-110)
[2024-06-09 13:21] VITALS: RESP 16; TEMP 97
[2024-06-09] MEDS ORDERED: methylPREDNISolone ACETATE 80 MG/ML 1 ML VIAL ONE (14:12)
[2024-06-09] MEDS ORDERED: ROPIVACAINE 5 MG/ML 30 ML VIAL ONE (14:12)
--- NOTE | 2024-06-09 14:28 | P.PCN ---
Description of Procedure: Preprocedure diagnosis. Bilateral iliolumbar ligament pain. Postprocedure diagnosis. As above. Procedure done. BILATERAL iliolumbar ligament injection with local anesthetics and steroid under fluoroscopic guidance. Anesthesia. Local infiltration of local anesthetics. Blood loss. None. Indication. Discussed the procedure and possible complications which may include infection bleeding nerve damage paralyzes aggravation of pain all of which could be permanent. Patient understands and QUESTIONS were answered. Procedure note. After getting consent patient was taken to OR in prone position. Back prepped with chlorhexidine and draped in sterile fashion. After injecting 5 mL of plain 1% lidocaine subcutaneously a 22-gauge spinal needle was introduced under tunnel vision of the fluoroscope on the RIGHT iliolumbar ligament area just below the right L5 transverse process. The needle position confirmation by AP and crosstable lateral view of the fluoroscope, after negative aspiration, 1.5 mL solution was injected which consists of 1 mL of 40 mg Depo-Medrol mixed with 0.5 ml of 0.5% Ropivacaine. In exactly the same way LEFT iliolumbar ligament injected with same amount of solution. [place] were taken out. Disposition. Patient tolerated the procedure well. No complication. Discharged home in stable condition.
[2024-06-09 14:34] VITALS: BP 120/68; PULSE 57
--- NOTE | 2024-06-09 15:50 | FL ---
EXAMINATION TYPE: FL guided pain mgmt statistic DATE OF EXAM: 06/09/2024 FLUOROSCOPY PAIN SERVICES: JENNIE ILIOLUMBAR INJ DAP: [id number] FL: 13.6 2 images are provided. [facility], , 06/09/2024 3:47 PM
== END 2024-06-09 14:55 | disposition home or self-care (01) ==
LOC: ORPAIN 12:37
PROVIDERS: ATTEND Pain Medicine Interventional Pain Medicine
DX: M79.18 Myalgia, other site (principal); E11.9 Type 2 diabetes mellitus without complications; Z79.82 Long term (current) use of aspirin; Z88.1 Allergy status to other antibiotic agents
CPT/HCPCS: 64425; J2795; J1010

== ENCOUNTER → 2024-06-18 | Outpatient (CLI) | payer MEDICARE, BC ==
[2024-06-18 13:48] VITALS: BP 142/88; PULSE 75; RESP 17
--- NOTE | 2024-06-18 14:57 | P.PAINPG ---
Objective - Vital Signs Vital signs: Vital Signs Temp Pulse 75 06/18/24 13:42 Resp 17 06/18/24 13:42 BP 142/88 06/18/24 13:42 Pulse Ox 100 06/18/24 13:42 FiO2 Intake & Output 06/17/24 06/18/24 06/18/24 18:59 06:59 18:59 Weight 114.759 kg PQRS Measure Charge Sheet Mode of Arrival: Ambulatory Comment: A 73 yrs old male with a history of severe and chronic neck, back and L hip pain secondary to DJD, radiculopathy, lumbar spondylosis and facet arthropathy without myelopathy presents today for evaluation s/p BL iliolumbar ligament injection #1. Pt states he experienced 50 % pain relief s/p procedure. Pt states his pain level is provoked at 6 /10 in intensity, intermittent, localized in the lumbar spine, predominantly axial, achy in character w occasional shooting pain to the L thigh. Pain is provoked by lifting and PT x 6 wks which ended in Jan 2023 and was ineffective. Pain is alleviated w physician guided stretches daily since Jan 2023 (cervical, lumbar, L hip), injections, medications, repositioning and rest. Interventional pain procedures completed include CHLOE C6-C7 x2, CHLOE C7-T1 x1, L hip intraarticular x4, CHLOE L4-L5 x1, BL RFA L3-L5 (05/08/24), BL iliolumbar ligament injection x1 (06/05) Patient is currently on Tyl, Ibu, ASA Patient denies any side effects of the medication(s), denies excessive drowsiness or sleepiness, denies suicidal ideation and reports that the current pain medication is helping to control the pain and improve activities of daily living. Patient denies any motor or sensory deficits. Patient denies any fever or night sweats, denies any change in the bowel movements or urination. Physical Examination: -Constitutional: Cooperative. Not in acute distress . - Neurologic: Cranial nerve II to XII intact. No focal neurological deficits. - Psychatric: Alert & oriented x 3. Matching mood & appropriate affect. Judgment and insight intact. - Musculoskeletal: Cervical spine: Muscle bulk/ tone/ strength in the bilateral upper extremities normal Vertebral body tenderness to palpation Spurling test positive Distraction test positive Facet loading test positive TTP Thoracic spine Muscle bulk / tone/ strength in the bilateral paraspinal muscles normal Vertebral body tender to palpation over Facet loading test positive TTP Lumbar spine: +L hip Trendelenberg Motor bulk/ tone/ strength lower extremities , thigh and legs : 5/5 Deep tendon reflexes : Normal Knee Jerk. Normal Ankle Jerk . Vertebral body tenderness to palpation over L4 Cifuentes Test positive Lumbar Facet Loading Test positive BL L4-L5/ L5-S1 Straight Leg Raise: positive at 30 degrees right side/ left side Gaenslen's Test positive Sacral spine : Severe tenderness over the Sacroiliac joint: right side / left side Range of motion: Flexion of the lumbar spine <60 degrees Range of motion: Extension of the lumbar spine <20 degrees Gaenslen's Test positive right side / left side Shanna test: positive right side / left side Thigh Thrust Test positive right side / left side Sacral Thrust Test positive right side / left side Imaging: X ray of BL hips from 06/27/[address] non contrast of the L hip from 12/06/22 reviewed MRI non contrast lumbar spine from 03/14/22 reviewed Assessment and plan: Chronic neck pain, back, L hip pain secondary to radiculopathy, L3-L5 spondylosis with facet arthropathy without myelopathy, L Hip DJD, L Sacroiliitis Recommendation of L SI #1. Opiate/ narcotic agreement signed 05/27/24. Ample supply of [place] 5/325mg #60 w 1 RF. Use, side effects, adverse reactions, safe storage discussed. All questions answered. I have spent less than 30 minutes on patient care today. Dr Colin was available by phone for the evaluation of this patient. The time was used to review the medical records including relevant urine studies and Prescription history (MAPs), review of the available imaging, evaluation and examination of the patient, coordination of care with the medical staff and if applicable referring physicians, as well as creation of the medical record - Pain Location Lower Back Non-Pharmacological Interventions: Ice Pharmacological Interventions: Medication PQRS Narrative: Smoking Status Former smoker Narcotic Agreement Date Signed 02/24/24 Blood Pressure 142/88 Pain Intensity [Lower Back] 6 Scale Used Numeric (1 - 10) Hx Alcohol Use (MH) No Home Medications: Ambulatory Orders Atorvastatin [Lipitor] 80 mg PO QAM 03/22/16 Venlafaxine HCl ER [Effexor XR] 37.5 mg PO QAM 07/10/18 Omeprazole 20 mg PO QAM 11/18/18 Isosorbide Mononitrate ER [Imdur] 30 mg PO QAM 06/03/19 Ezetimibe [Zetia] 10 mg PO QAM 06/02/20 Losartan [Cozaar] 25 mg PO QAM 10/24/22 Multivitamins, Thera [Multivitamin (formulary)] 1 tab PO QAM 07/04/23 Vitamin E (Dl,Tocopheryl Acet) [Vitamin E (400 Iu = 180 mg)] 400 unit PO QAM 07/04/23 Aspirin 81 mg PO DAILY 11/28/23 Empagliflozin/Metformin HCl [Synjardy Xr 25-1,000 mg Tablet] 1 tab PO DAILY 11/28/23 Ibuprofen [Motrin] 600 mg PO Q6HR PRN 11/28/23 Semaglutide [Ozempic] 0.25 mg SQ FR 11/28/23 HYDROcodone/APAP 5-325MG [[place] 5-325] 1 tab PO BID PRN 30 Days #60 tab 05/27/24 HYDROcodone/APAP 5-325MG [[place] 5-325] 1 tab PO BID PRN 30 Days #60 tab 05/27/24 Controlled Substance Measures - Controlled Substance Measures Is patient prescribed a controlled substance at discharge?: No
== END ==
LOC: PNWHC3 13:33
PROVIDERS: ATTEND Specialist
DX: M47.26 Other spondylosis with radiculopathy, lumbar region (principal); M54.2 Cervicalgia; M16.12 Unilateral primary osteoarthritis, left hip; G89.29 Other chronic pain; Z87.891 Personal history of nicotine dependence; Z88.5 Allergy status to narcotic agent
CPT/HCPCS: 99212

== ENCOUNTER → 2024-07-22 | Outpatient (CLI) | payer MEDICARE, BC ==
[2024-07-03 11:05] VITALS: BMI 33.7
[2024-07-22 14:33] VITALS: BP 110/73; PULSE 65; RESP 16; TEMP 96.6
--- NOTE | 2024-07-22 16:12 | P.PAINPG ---
PQRS Measure Charge Sheet Comment: A 73 yrs old male with a history of severe and chronic neck, back and L hip pain secondary to DJD, radiculopathy, lumbar spondylosis and facet arthropathy without myelopathy presents today for evaluation s/p L SI #1. Pt states he experienced 70 % pain relief x 2 wks s/p procedure. Pt states his pain level is provoked at 2-6 /10 in intensity, intermittent, localized in the lumbar spine, predominantly axial, achy in character w occasional shooting pain to the L thigh. Pain is provoked by lifting and PT x 6 wks which ended in Jan 2023 and was ineffective. Pain is alleviated w physician guided stretches daily since Jan 2023 (cervical, lumbar, L hip), injections, medications, repositioning and rest. Interventional pain procedures completed include CHLOE C6-C7 x2, CHLOE C7-T1 x1, L hip intraarticular x4, CHLOE L4-L5 x1, BL RFA L3-L5 (05/08/24), BL iliolumbar ligament injection x1 (06/05), L SI x1 (07/05) Patient is currently on Tyl, Ibu, ASA Patient denies any side effects of the medication(s), denies excessive drowsiness or sleepiness, denies suicidal ideation and reports that the current pain medication is helping to control the pain and improve activities of daily living. Patient denies any motor or sensory deficits. Patient denies any fever or night sweats, denies any change in the bowel movements or urination. Physical Examination: -Constitutional: Cooperative. Not in acute distress . - Neurologic: Cranial nerve II to XII intact. No focal neurological deficits. - Psychatric: Alert & oriented x 3. Matching mood & appropriate affect. Judgment and insight intact. - Musculoskeletal: Cervical spine: Muscle bulk/ tone/ strength in the bilateral upper extremities normal Vertebral body tenderness to palpation Spurling test positive Distraction test positive Facet loading test positive TTP Thoracic spine Muscle bulk / tone/ strength in the bilateral paraspinal muscles normal Vertebral body tender to palpation over Facet loading test positive TTP Lumbar spine: +L hip Trendelenberg Motor bulk/ tone/ strength lower extremities , thigh and legs : 5/5 Deep tendon reflexes : Normal Knee Jerk. Normal Ankle Jerk . Vertebral body tenderness to palpation over L4 Cifuentes Test positive Lumbar Facet Loading Test positive BL L4-L5/ L5-S1 Straight Leg Raise: positive at 30 degrees right side/ left side Gaenslen's Test positive Sacral spine : Severe tenderness over the Sacroiliac joint: right side / left side Range of motion: Flexion of the lumbar spine <60 degrees Range of motion: Extension of the lumbar spine <20 degrees Gaenslen's Test positive right side / left side Shanna test: positive right side / left side Thigh Thrust Test positive right side / left side Sacral Thrust Test positive right side / left side Imaging: X ray of BL hips from 06/27/[address] non contrast of the L hip from 12/06/22 reviewed MRI non contrast lumbar spine from 03/14/22 reviewed Assessment and plan: Chronic neck pain, back, L hip pain secondary to radiculopathy, L3-L5 spondylosis with facet arthropathy without myelopathy, L Hip DJD, L Sacroiliitis Recommendation of medication management. Opiate/ narcotic agreement signed 05/27/24. UDS collected 07/22/24. [place] 5/325mg #60 w 1 RF. Use, side effects, adverse reactions, safe storage discussed. All questions answered. I have spent less than 30 minutes on patient care today. Dr Colin was available by phone for the evaluation of this patient. The time was used to review the medical records including relevant urine studies and Prescription history (MAPs), review of the available imaging, evaluation and examination of the patient, coordination of care with the medical staff and if applicable referring physicians, as well as creation of the medical record - Pain Location Left Hip Non-Pharmacological Interventions: Physical Therapy, Relaxation Technique, TENS Unit Pharmacological Interventions: Epidural, Scheduled Medication PQRS Narrative: Smoking Status Former smoker Narcotic Agreement Date Signed 02/24/24 Hx Alcohol Use (MH) No Home Medications: Ambulatory Orders Atorvastatin [Lipitor] 80 mg PO QAM 03/22/16 Venlafaxine HCl ER [Effexor XR] 37.5 mg PO QAM 07/10/18 Omeprazole 20 mg PO QAM 11/18/18 Isosorbide Mononitrate ER [Imdur] 30 mg PO QAM 06/03/19 Ezetimibe [Zetia] 10 mg PO QAM 06/02/20 Losartan [Cozaar] 25 mg PO QAM 10/24/22 Multivitamins, Thera [Multivitamin (formulary)] 1 tab PO QAM 07/04/23 Vitamin E (Dl,Tocopheryl Acet) [Vitamin E (400 Iu = 180 mg)] 400 unit PO QAM 07/04/23 Aspirin 81 mg PO DAILY 11/28/23 Empagliflozin/Metformin HCl [Synjardy Xr 25-1,000 mg Tablet] 1 tab PO DAILY 11/28/23 Ibuprofen [Motrin] 600 mg PO Q6HR PRN 11/28/23 Semaglutide [Ozempic] 0.25 mg SQ FR 11/28/23 HYDROcodone/APAP 5-325MG [[place] 5-325] 1 tab PO BID PRN 30 Days #60 tab 07/22/24 HYDROcodone/APAP 5-325MG [[place] 5-325] 1 tab PO BID PRN 30 Days #60 tab 07/22/24 Controlled Substance Measures - Controlled Substance Measures Is patient prescribed a controlled substance at discharge?: Yes If prescribed controlled substance>3 days was MAPS reviewed?: Yes
== END ==
LOC: PNWHC3 14:08
PROVIDERS: ATTEND Specialist
DX: M47.26 Other spondylosis with radiculopathy, lumbar region (principal); M54.2 Cervicalgia; G89.29 Other chronic pain; M16.12 Unilateral primary osteoarthritis, left hip; M46.1 Sacroiliitis, not elsewhere classified; Z88.8 Allergy status to other drugs, medicaments and biological substances; Z87.891 Personal history of nicotine dependence
CPT/HCPCS: 80307; G0463; 99212